=== PATIENT | female | born 1955 ===

== ENCOUNTER 2018-12-01 08:44 | Observation (INO) | payer MEDICAID ==
[2018-12-01 08:44] VITALS: BMI 28.9
[2018-12-01] MEDS ORDERED: Sodium Chloride 0.9% 1,000 ML IV STA (09:20)
--- NOTE | 2018-12-01 09:38 | ED PDOC ---
HPI: Abdomen Time Seen by Provider: 12/01/18 08:59 Chief Complaint (Nursing): GI Problem Chief Complaint (Provider): GI Problem History Per: Patient History/Exam Limitations: no limitations Onset/Duration Of Symptoms: Days (x1) Current Symptoms Are (Timing): Still Present Location Of Pain/Discomfort: Epigastric Associated Symptoms: Nausea, Vomiting, Diarrhea Additional Complaint(s): Mony Hawley is a 63 year old female with a past medical history of HIV, diabetes, asthma, anemia, and lymphoma who is presenting to the ED for evaluation of acute onset vomiting and diarrhea onset last night. Patient states that she is otherwise well but also complains of epigastric discomfort associated with the multiple episodes of vomiting and diarrhea. She admits that she is unsure of who she was in contact with or any particular food she ate recently that could have caused this. Patient admits that she was recently discharge from [facility] for treatment of pneumonia and states that she has felt warm but doesnt think she has a fever. PMD: Solange Gonzalez Past Medical History Reviewed: Historical Data, Nursing Documentation, Vital Signs Vital Signs: Last Vital Signs Temp 97.6 F 12/01/18 08:51 Pulse 111 H 12/01/18 08:51 Resp 16 12/01/18 08:51 BP 83/50 L 12/01/18 08:51 Pulse Ox 97 12/01/18 08:51 - Medical History PMH: Anemia, Anxiety, Asthma, COPD (Emphysema,), Depression, Diabetes, Emphysema, Gall Bladder Disease, HIV, Hypercholesterolemia, Kidney Stones (40 YRS AGO), Pneumonia (DECEMBER 2013 INTUBATED) Denies: Chronic Kidney Disease - Surgical History Surgical History: Cholecystectomy, Endoscopy Other surgeries: Tubal Ligation - Family History Family History: States: Unknown Family Hx - Social History Current smoker - smoking cessation education provided: No Alcohol: None Drugs: Denies - Immunization History Hx Tetanus Toxoid Vaccination: Yes Hx Influenza Vaccination: Yes Hx Pneumococcal Vaccination: Yes - Home Medications Home Medications: Ambulatory Orders Medication Instructions Recorded Atorvastatin Calcium 20 mg PO DAILY 01/10/18 Aspirin [Aspirin Chewable] 81 mg PO DAILY chew 01/14/18 Darunavir [Prezista] 800 mg PO HS tab 01/14/18 Gabapentin [Neurontin] 800 mg PO TID tab 01/14/18 GlipiZIDE [Glucotrol] 5 mg PO BID tab 01/14/18 Lisinopril [Zestril] 5 mg PO DAILY tab 01/14/18 Ritonavir [Norvir] 100 mg PO HS cap 01/14/18 Tenofovir [Viread] 300 mg PO HS tab 01/14/18 Albuterol HFA [Ventolin HFA 90 2 puff IH PRN PRN 07/08/18 mcg/actuation (8 g)] Alogliptin Benzoate [Nesina] 25 mg PO DAILY 07/08/18 MetFORMIN [glucoPHAGE] 1,000 mg PO BID 07/08/18 Pantoprazole [Protonix EC Tab] 40 mg PO DAILY 07/08/18 Alogliptin Benzoate [Alogliptin] 25 mg PO DAILY 09/13/18 Anderson-3 Fatty Acids/Fish Oil [Fish 1,000 mg PO BID 09/13/18 Oil 1,000 mg Capsule] Sertraline HCl 50 mg PO DAILY 09/13/18 Tivicay 50 mg PO DAILY 09/13/18 Trazodone HCl 150 mg PO HS 09/13/18 Darunavir [Prezista] 800 mg PO DAILY 10/02/18 Pentoxifylline 400 mg PO TID 10/02/18 Sertraline HCl 50 mg PO DAILY 10/02/18 Azithromycin [Zithromax] 250 mg PO DAILY #6 tab 11/15/18 Benzonatate 200 mg PO TID PRN #30 capsule 11/15/18 predniSONE [Prednisone] 20 mg PO BID #10 tab 11/15/18 - Allergies Allergies/Adverse Reactions: Allergies Allergy/AdvReac Type Severity Reaction Status Date / Time No Known Allergies Allergy Verified 11/15/18 22:47 Review of Systems ROS Statement: Except As Marked, All Systems Reviewed And Found Negative Constitutional: Negative for: Fever, Chills Gastrointestinal: Positive for: Vomiting, Abdominal Pain, Diarrhea Genitourinary Female: Negative for: Hematuria Musculoskeletal: Negative for: Back Pain Physical Exam - Reviewed Nursing Documentation Reviewed: Yes Vital Signs Reviewed: Yes - Physical Exam Appears: Positive for: Non-toxic, In Acute Distress (mild to moderate discomfort ) Head Exam: Positive for: ATRAUMATIC, NORMAL INSPECTION, NORMOCEPHALIC Skin: Positive for: Warm, Pallor Eye Exam: Negative for: Scleral icterus ENT: Positive for: Other (dry mucosa ) Cardiovascular/Chest: Positive for: Regular Rate, Rhythm. Negative for: Murmur Respiratory: Positive for: Normal Breath Sounds. Negative for: Respiratory Distress Gastrointestinal/Abdominal: Positive for: Soft, Tenderness (epigastric ), Distended Back: Positive for: Normal Inspection Extremity: Positive for: Normal ROM. Negative for: Deformity, Swelling Neurologic/Psych: Positive for: Alert, Oriented. Negative for: Motor/Sensory Deficits - Laboratory Results Result Diagrams: 12/01/18 09:44 12/01/18 09:44 - ECG O2 Sat by Pulse Oximetry: 97 (RA) Pulse Ox Interpretation: Normal Medical Decision Making Medical Decision Making: Time: 9:20 Impression: acute gastroenteritis possible cause viral vs food poisoning vs CDIFF Plan: --CMP --Lipase --ED Urine Dipstick --CBC --X-ray obstructive series --IV Fluids --Pepcid 20 mg IVP --Zofran 4 mg IVP --C DIFF Toxin A B Scribe Attestation: Documented by My Mendez, acting as a scribe for Tiff Hanley MD. Provider Scribe Attestation: All medical record entries made by the Scribe were at my direction and personall y dictated by me. I have reviewed the chart and agree that the record accurately reflects my personal performance of the history, physical exam, medical decision making, and the department course for this patient. I have also personally directed, reviewed, and agree with the discharge instructions and disposition. Disposition - Clinical Impression Clinical Impression: Diarrhea, Ileus - Patient ED Disposition Is Patient to be Admitted: Yes Doctor Will See Patient In The: Hospital - Disposition Disposition: Transfer of Care Disposition Time: 14:46 Condition: FAIR Forms: [employer] (Icelandic) - Pt Status Changed To: Hospital Disposition Of: Inpatient - Admit Certification Admit to Inpatient:: After my assessment, the patient will require hospitalization for at least two midnights. This is because of the severity of symptoms shown, intensity of services needed, and/or the medical risk in this patient being treated as an outpatient. - POA Present On Arrival: None
[2018-12-01 10:02] LABS: BASO % 0.1 % (0.0-2.0); EOS # 0.1 K/uL (0.0-0.7); EOS % 0.6 % (0.0-4.0); HEMOGLOBIN 10.3 g/dL (12.0-16.0); LYMPH # 0.6 K/uL (1.0-4.3); LYMPH % 4.2 % (20.0-40.0); MEAN CELL VOLUME 88.2 fl (81.0-99.0); MEAN CORPUSCULAR HEMOGLOBIN 29.3 pg (27.0-31.0); MEAN CORPUSCULAR HGB CONC 33.2 g/dL (33.0-37.0); MONO # 0.5 K/uL (0.0-0.8); MONO % 3.6 % (0.0-10.0); NEUT # 13.7 K/uL (1.8-7.0); NEUT % 91.5 % (50.0-75.0); PLATELET COUNT 309 K/uL (130-400); RBC 3.52 Mil/uL (3.80-5.20); RED CELL DISTRIBUTION WIDTH 14.8 % (11.5-14.5)
[2018-12-01 10:17] LABS: ALB/GLOB RATIO 1.2 (1.0-2.1); ALBUMIN 3.6 g/dL (3.5-5.0); ALT/SGPT 29 U/L (9-52); AST/SGOT 16 U/L (14-36); BLOOD UREA NITROGEN 36 mg/dl (7-17); CALCIUM 8.9 mg/dL (8.4-10.2); GFR NON-AFRICAN AMERICAN 50; LIPASE 46 U/L (23-300)
--- NOTE | 2018-12-01 10:37 | RAD ---
Date of service: 12/01/2018 PROCEDURE: Radiographs of the chest and abdomen (obstructive series) HISTORY: vomiting, diarrhea, abd distention COMPARISON: No prior. TECHNIQUE: AP radiograph of the chest, with upright and supine radiographs of the abdomen. FINDINGS: CHEST: Lungs: Clear. Cardiovascular: Normal size heart. No pulmonary vascular congestion. No aortic atherosclerotic calcification present Pleura: No pleural fluid. No pneumothorax. Other findings: None. ABDOMEN AND PELVIS: Bowel: Minimal stool in the left colon noted. A few nonspecific this mostly small bowel air-fluid levels are present no dilated small or large bowel loops appreciated.. No evidence of mechanical obstruction. Free air: None. Bones: Mild lumbar spondylosis. Bilateral hip arthrosis. Other findings: Right upper quadrant cholecystectomy clips. Inferior bilateral hemipelvic phleboliths. Partially visualized left groin vascular stent. IMPRESSION: No pulmonary infiltrate. No mechanical bowel obstruction. Nonspecific bowel gas pattern as above. No free air. Other findings as above.
[2018-12-01 12:29] LABS: ANISOCYTOSIS SLIGHT; BANDS 2 % (0-2); BASOPHIL 1 % (0-2); EOSINOPHIL 1 % (0-7); HYPOCHROMIC SLIGHT; LYMPHOCYTE 3 % (20-50); MONOCYTE 2 % (0-10); NEUTROPHIL 91 % (42-75); PLATELET CLUMPS PRESENT; PLATELET ESTIMATE NORMAL (NORMAL); TOTAL CELLS COUNTED 100
[2018-12-01] MEDS ORDERED: Iohexol 240 (50 ml) PO ONE (15:44)
[2018-12-01] MEDS ORDERED: Dextrose 50% SYRINGE Inj (50 ml) IV PRN (15:45)
[2018-12-01] MEDS ORDERED: Glucagon Recombinant 1 mg Inj IM PRN (15:45)
[2018-12-01] MEDS ORDERED: Albuterol HFA 90 mcg/actuation (8 g) IH PRN (15:47)
[2018-12-01] MEDS ORDERED: Albuterol 0.083% Inhal Sol (2.5 mg/3 mL) UD IH PRN (15:47)
[2018-12-01] MEDS ORDERED: Iohexol 240 (50 ml) ONE (15:57)
[2018-12-01] MEDS: Sodium Chloride 0.9% 1,000 ML IV SCH (16:04)
--- NOTE | 2018-12-01 16:11 | CP.PCM.HP ---
History of Present Illness - History of Present Illness History of Present Illness: 63 y/o female w/ pmhx of HIV+, DM2, and Hodgkins lymphoma c/o constant epigastric pain, 7/10 in severity, associated w/ multiple episodes of non-bloody diarrhea, which started last night. Patient reports feeling weak and dizzy after episodes of diarrhea. Denies aggravating or alleviating factors. Last bowel movement was 7AM today. She reports eating reheated rice, eggs, and yellow plantains before the onset of her symptoms. Denies fevers, chills, headache, chest pain, SOB, vomiting, urinary symptoms. Of note, she was recently hosp italized and treated for pneumonia. ED Course: Vitals: T97.6, HR 111, BP 83/50, RR16, SpO2 97% on room air Labs: WBC 15.0, Na+ 131, K+ 5.1. C.diff ag/toxin negative Meds: Pepcid 20mg IV, Zofran 4mg IV, NaCl- 1L boulus IV Imaging: Abd XR: no mechanical bowel obstruction, small bowel air-fluid levels appreciated PMD: Dr. Solange Gonzalez Pmhx: HIV+, DM2, Hodgkin's Lymphoma (diagnosed 3 years ago, treated), Asthma, polyneuropathy Socialhx: former smoker of 1.5ppd x 37 years, quit 10 years ago. Former Cocain user. Denies Etoh use. Single, has 4 kids. Famhx: Mother had throat cancer, DM, asthma SurgHx: cholecystectomy, left extremity angiogram and revascularization 2018, bl adder surgery, tubal ligation, stent placement x3 in 2018 Allergies: NKDA Code Status: Full Code Next of Kin: Daughter, Klarissa Small, Present on Admission - Present on Admission Any Indicators Present on Admission: No History of DVT/PE: No History of Uncontrolled Diabetes: No Urinary Catheter: No Decubitus Ulcer Present: No Review of Systems - Review of Systems All systems: reviewed and no additional remarkable complaints except - Constitutional Constitutional: absent: Chills, Fever - Gastrointestinal Gastrointestinal: Abdominal Pain, Bloating, Diarrhea, Nausea - Genitourinary Genitourinary: absent: Difficulty Urinating Past Patient History - Infectious Disease Hx of Infectious Diseases: None - Past Medical History & Family History Past Medical History?: Yes - Past Social History Smoking Status: Former Smoker Alcohol: None Drugs: Denies Home Situation {Lives}: With Family - CARDIAC Hx Hypercholesterolemia: Yes - PULMONARY Hx Asthma: Yes Hx Chronic Obstructive Pulmonary Disease (COPD): Yes (Emphysema,) Hx Emphysema: Yes Hx Pneumonia: Yes (DECEMBER 2013 INTUBATED) - NEUROLOGICAL Hx Neurological Disorder: No - HEENT Hx HEENT Problems: Yes Hx Cataracts: Yes - RENAL Hx Chronic Kidney Disease: No Hx Kidney Stones: Yes (40 YRS AGO) - ENDOCRINE/METABOLIC Hx Endocrine Disorders: Yes Hx Diabetes Mellitus Type 2: Yes - HEMATOLOGICAL/ONCOLOGICAL Hx Anemia: Yes Hx Human Immunodeficiency Virus (HIV): Yes - INTEGUMENTARY Hx Cellulitis: Yes - MUSCULOSKELETAL/RHEUMATOLOGICAL Hx Musculoskeletal Disorders: Yes Hx Falls: Yes - GASTROINTESTINAL Hx Gall Bladder Disease: Yes - GENITOURINARY/GYNECOLOGICAL Hx Genitourinary Disorders: Yes Other/Comment: BLADDER LIFT AND SURGERY prolapsed again - PSYCHIATRIC Hx Anxiety: Yes Hx Depression: Yes - SURGICAL HISTORY Hx Cholecystectomy: Yes - ANESTHESIA Hx Anesthesia: Yes Hx Anesthesia Reactions: No Hx Malignant Hyperthermia: No Meds Allergies/Adverse Reactions: Allergies Allergy/AdvReac Type Severity Reaction Status Date / Time No Known Allergies Allergy Verified 11/15/18 22:47 Physical Exam - Constitutional Appears: In Acute Distress - Head Exam Head Exam: ATRAUMATIC, NORMAL INSPECTION - Eye Exam Eye Exam: Normal appearance - ENT Exam ENT Exam: Mucous Membranes Dry - Respiratory Exam Respiratory Exam: Clear to Auscultation Bilateral, NORMAL BREATHING PATTERN - Cardiovascular Exam Cardiovascular Exam: REGULAR RHYTHM, +S1, +S2 - GI/Abdominal Exam GI & Abdominal Exam: Distended, Hypoactive Bowel Sounds, Soft, Tenderness - Extremities Exam Extremities exam: Positive for: normal inspection. Negative for: calf tenderness, pedal edema, tenderness - Back Exam Back exam: NORMAL INSPECTION. absent: CVA tenderness (L), CVA tenderness (R) - Neurological Exam Neurological exam: Alert - Skin Skin Exam: Dry, Intact, Warm Results - Vital Signs Recent Vital Signs: Last Vital Signs Temp 99.5 F 12/01/18 14:59 Pulse 110 H 12/01/18 14:59 Resp 16 12/01/18 14:59 BP 114/53 L 12/01/18 14:59 Pulse Ox 98 12/01/18 14:59 - Labs Result Diagrams: 12/01/18 09:44 12/01/18 09:44 Labs: Laboratory Results - last 24 hr 12/01/18 12/01/18 12/01/18 09:14 09:44 09:44 WBC 15.0 H RBC 3.52 L Hgb 10.3 L Hct 31.1 L MCV 88.2 MCH 29.3 MCHC 33.2 RDW 14.8 H Plt Count 309 MPV 8.0 Neut % (Auto) 91.5 H Lymph % (Auto) 4.2 L [place] % (Auto) 3.6 Eos % (Auto) 0.6 Baso % (Auto) 0.1 Neut # (Auto) 13.7 H Lymph # (Auto) 0.6 L [place] # (Auto) 0.5 Eos # (Auto) 0.1 Baso # (Auto) 0.0 Neutrophils % (Manual) 91 H Band Neutrophils % 2 Lymphocytes % (Manual) 3 L Monocytes % (Manual) 2 Eosinophils % (Manual) 1 Basophils % (Manual) 1 Platelet Estimate Normal Plt Clumps, EDTA Present Hypochromasia (manual) Slight Anisocytosis (manual) Slight Sodium 131 L Potassium 5.1 H Chloride 97 L Carbon Dioxide 19 L Anion Gap 20 BUN 36 H Creatinine 1.1 Est GFR ( Amer) > 60 Est GFR (Non-Af Amer) 50 POC Glucose (mg/dL) 348 H Random Glucose 354 H Calcium 8.9 Total Bilirubin 0.3 AST 16 ALT 29 Alkaline Phosphatase 89 Total Protein 6.7 Albumin 3.6 Globulin 3.1 Albumin/Globulin Ratio 1.2 Lipase 46 C. difficile Ag & Toxin 12/01/18 12/01/18 14:00 14:11 WBC RBC Hgb Hct MCV MCH MCHC RDW Plt Count MPV Neut % (Auto) Lymph % (Auto) [place] % (Auto) Eos % (Auto) Baso % (Auto) Neut # (Auto) Lymph # (Auto) [place] # (Auto) Eos # (Auto) Baso # (Auto) Neutrophils % (Manual) Band Neutrophils % Lymphocytes % (Manual) Monocytes % (Manual) Eosinophils % (Manual) Basophils % (Manual) Platelet Estimate Plt Clumps, EDTA Hypochromasia (manual) Anisocytosis (manual) Sodium Potassium Chloride Carbon Dioxide Anion Gap BUN Creatinine Est GFR ( Amer) Est GFR (Non-Af Amer) POC Glucose (mg/dL) 245 H Random Glucose Calcium Total Bilirubin AST ALT Alkaline Phosphatase Total Protein Albumin Globulin Albumin/Globulin Ratio Lipase C. difficile Ag & Toxin Negative Assessment & Plan - Assessment and Plan (Free Text) Assessment: 63 y/o female w/ pmhx of HIV+, DM2, and Hodgkin's lymphoma admitted for observation for diarrhea and abdominal pain. Diarrhea/Abd Pain Likely secondary to food poisoning vs. viral etiology WBC 15.0 C.diff ag/toxin negative Given Pepcid 20mg IV, Zofran 4mg IV, NaCl- 1L bolus IV x 1 in ER Abd XR: no mechanical bowel obstruction, small bowel air-fluid levels appreciated Abd CT w/ PO and IV contrast ordered Zofran 4mg IVP Q6 PRN Protonix 40mg IVP QD Toradol 15mg IVP Q6 for moderate pain, Toradol 30mg IVP Q6 for severe pain IV fluid hydration NaCl- 0.9% @ 100mL/hr CBC in the AM Stool culture ordered Hx of HIV Chronic. Stable. Cont. home meds Prezista 800mg PO QD, Tivicay 50mg PO QD, Norvir 100mg PO QD, Viread 300mg PO QD 08/04/2018 CD4 683, Viral load <20 Hx of DM Chronic. Uncontrolled. Hold metformin Coverage scale in place Hx of Peripheral neuropathy Chronic. Stable. Neurontin 400mg PO Q8 Hx of Hypertriglyceridemia Lipitor 20mg PO Hx of Asthma Cont. home meds Albuterol Neb 2.5mg/3mL inh q6h prn Ventolin 2 puffs inh q6h prn Diet NPO DVT prophylaxis Lovenox 40mg SC SCDs Code Status Full Code - Date & Time Date: 12/01/18 Time: 15:45 Decision To Admit - Pt Status Changed To: Hospital Disposition Of: Observation - . Bed Request Type: Med/Surg Admitting Physician: Marisol Yu
[2018-12-01] MEDS ORDERED: Iodixanol 320 MG/ML 100 ML BOTTLE IV ONE (17:02)
[2018-12-01] MEDS ORDERED: Sodium Chloride 0.9% 50 ML IV ONE (17:02)
--- NOTE | 2018-12-01 18:41 | CT ---
Date of service: 12/01/2018 PROCEDURE: CT Abdomen and Pelvis with contrast HISTORY: abd pain COMPARISON: 01/01/2018 TECHNIQUE: Contrast dose: 90 mL Visipaque 320 Radiation dose: Total exam DLP = 466.83 mGy-cm. This CT exam was performed using one or more of the following dose reduction techniques: Automated exposure control, adjustment of the mA and/or kV according to patient size, and/or use of iterative reconstruction technique. FINDINGS: LOWER THORAX: Minimal linear pleural-based scar in both lower lobes. No infiltrate/effusion. LIVER: Mild hepatomegaly. Smooth contour. No mass. No biliary ductal dilatation. GALLBLADDER AND BILE DUCTS: Status post cholecystectomy PANCREAS: Unremarkable. No gross lesion or ductal dilatation. SPLEEN: Unremarkable. ADRENALS: Unremarkable. No mass. KIDNEYS AND URETERS: Unremarkable. No hydronephrosis. No solid mass. VASCULATURE: No evidence of abdominal aortic aneurysm. The most cephalic aspect of a vascular stent is seen in the left common femoral artery. There is atherosclerotic calcification of the abdominal aorta. BOWEL: Unremarkable. No obstruction. No gross mural thickening. APPENDIX: Normal appendix. PERITONEUM: Unremarkable. No free fluid. No free air. LYMPH NODES: Unremarkable. No enlarged lymph nodes. BLADDER: Suboptimal bladder distention. No gross abnormality. REPRODUCTIVE: Normal uterus. BONES: No acute fracture. OTHER FINDINGS: None. IMPRESSION: No acute abnormality. Mild hepatomegaly. Status post cholecystectomy. Vascular stent in left common femoral artery.
[2018-12-01] MEDS ORDERED: Patient's Own Med (Trazodone Hcl [Trazodone Hcl] 150 MG) PO SCH (22:00)
[2018-12-01] MEDS: Insulin Lispro (humaLOG) 100 Units/ml Inj SC SCH (22:08)
[2018-12-02] MEDS: Sodium Chloride 0.9% 1,000 ML IV SCH (01:45)
[2018-12-02 05:05] VITALS: RESP 18
[2018-12-02 05:22] LABS: HEMOGLOBIN 8.7 g/dL (12.0-16.0); MEAN CELL VOLUME 89.9 fl (81.0-99.0); MEAN CORPUSCULAR HEMOGLOBIN 30.1 pg (27.0-31.0); MEAN CORPUSCULAR HGB CONC 33.4 g/dL (33.0-37.0); RBC 2.88 Mil/uL (3.80-5.20); WHITE BLOOD COUNT 5.8 K/uL (4.8-10.8)
[2018-12-02 05:51] LABS: BLOOD UREA NITROGEN 20 mg/dl (7-17); CALCIUM 8.6 mg/dL (8.4-10.2); GFR NON-AFRICAN AMERICAN > 60
[2018-12-02] MEDS: Insulin Lispro (humaLOG) 100 Units/ml Inj SC SCH ×2 (06:30→12:15)
[2018-12-02] MEDS ORDERED: ALOGLIPTIN BENZOATE 25 MG PO SCH (09:00)
[2018-12-02] MEDS ORDERED: Enoxaparin 40 mg Syringe SC SCH ×2 (09:00)
[2018-12-02] MEDS ORDERED: RITONAVIR 100 MG PO SCH (09:00)
--- NOTE | 2018-12-02 09:48 | CP.PCM.DIS ---
<Shanna Jordan - Last Filed: 12/02/18 10:13> Provider - Provider Date of Admission: 12/01/18 14:45 Attending physician: Marisol Yu MD Consults: 12/01/18 21:38 Case Management Referral Routine Comment: Physician Instructions: Reason For Exam: per protocol Reason for Referral: Discharge Planning Time Spent in preparation of Discharge (in minutes): 35 Diagnosis - Discharge Diagnosis (1) Diarrhea Status: Resolved Priority: Low (2) Ileus Status: Resolved Priority: Low Hospital Course - Lab Results Lab Results: Most Recent Lab Values WBC 5.8 K/uL (4.8-10.8) D 12/02/18 04:25 RBC 2.88 Mil/uL (3.80-5.20) L 12/02/18 04:25 Hgb 8.7 g/dL (12.0-16.0) L 12/02/18 04:25 Hct 25.9 % (34.0-47.0) L 12/02/18 04:25 MCV 89.9 fl (81.0-99.0) 12/02/18 04:25 MCH 30.1 pg (27.0-31.0) 12/02/18 04:25 MCHC 33.4 g/dL (33.0-37.0) 12/02/18 04:25 RDW 15.0 % (11.5-14.5) H 12/02/18 04:25 Plt Count 251 K/uL (130-400) 12/02/18 04:25 MPV 8.0 fl (7.2-11.7) 12/01/18 09:44 Neut % (Auto) 91.5 % (50.0-75.0) H 12/01/18 09:44 Lymph % (Auto) 4.2 % (20.0-40.0) L 12/01/18 09:44 [place] % (Auto) 3.6 % (0.0-10.0) 12/01/18 09:44 Eos % (Auto) 0.6 % (0.0-4.0) 12/01/18 09:44 Baso % (Auto) 0.1 % (0.0-2.0) 12/01/18 09:44 Neut # (Auto) 13.7 K/uL (1.8-7.0) H 12/01/18 09:44 Lymph # (Auto) 0.6 K/uL (1.0-4.3) L 12/01/18 09:44 [place] # (Auto) 0.5 K/uL (0.0-0.8) 12/01/18 09:44 Eos # (Auto) 0.1 K/uL (0.0-0.7) 12/01/18 09:44 Baso # (Auto) 0.0 K/uL (0.0-0.2) 12/01/18 09:44 Neutrophils % (Manual) 91 % (42-75) H 12/01/18 09:44 Band Neutrophils % 2 % (0-2) 12/01/18 09:44 Lymphocytes % (Manual) 3 % (20-50) L 12/01/18 09:44 Monocytes % (Manual) 2 % (0-10) 12/01/18 09:44 Eosinophils % (Manual) 1 % (0-7) 12/01/18 09:44 Basophils % (Manual) 1 % (0-2) 12/01/18 09:44 Platelet Estimate Normal (NORMAL) 12/01/18 09:44 Plt Clumps, EDTA Present 12/01/18 09:44 Hypochromasia (manual) Slight 12/01/18 09:44 Anisocytosis (manual) Slight 12/01/18 09:44 Sodium 136 mmol/l (132-148) 12/02/18 04:25 Potassium 3.9 MMOL/L (3.6-5.0) 12/02/18 04:25 Chloride 106 mmol/L (98-107) 12/02/18 04:25 Carbon Dioxide 21 mmol/L (22-30) L 12/02/18 04:25 Anion Gap 13 (10-20) 12/02/18 04:25 BUN 20 mg/dl (7-17) H 12/02/18 04:25 Creatinine 0.8 mg/dl (0.7-1.2) 12/02/18 04:25 Est GFR ( Amer) > 60 12/02/18 04:25 Est GFR (Non-Af Amer) > 60 12/02/18 04:25 POC Glucose (mg/dL) 164 mg/dL (65-110) H 12/02/18 05:15 Random Glucose 137 mg/dL (65-105) H 12/02/18 04:25 Lactic Acid 1.8 mmol/L (0.7-2.1) 12/01/18 17:11 Calcium 8.6 mg/dL (8.4-10.2) 12/02/18 04:25 Total Bilirubin 0.3 mg/dl (0.2-1.3) 12/01/18 09:44 AST 16 U/L (14-36) 12/01/18 09:44 ALT 29 U/L (9-52) 12/01/18 09:44 Alkaline Phosphatase 89 U/L (38-126) 12/01/18 09:44 Total Protein 6.7 G/DL (6.3-8.2) 12/01/18 09:44 Albumin 3.6 g/dL (3.5-5.0) 12/01/18 09:44 Globulin 3.1 gm/dL (2.2-3.9) 12/01/18 09:44 Albumin/Globulin Ratio 1.2 (1.0-2.1) 12/01/18 09:44 Lipase 46 U/L (23-300) 12/01/18 09:44 C. difficile Ag & Toxin Negative (NEGATIVE) 12/01/18 14:00 - Hospital Course Hospital Course: 63 y/o female w/ pmhx of HIV+, DM2, and Hodgkins lymphoma c/o constant epigastric pain, 7/10 in severity, associated w/ multiple episodes of non-bloody diarrhea after eating reheated rice and eggs. C.diff ag/toxin negative. Imaging: Abd XR: no mechanical bowel obstruction, small bowel air-fluid levels appreciated. CT abdomen and pelvis with contrast showed :No acute abnormality. Mild hepatomegaly. Status post cholecystectomy. Vascular stent in left common femoral artery. Patient given Pepcid 20mg IV, Zofran 4mg IV, NaCl- 1L boulus IV in ER, then placed under observation in telemetry, given Bentyl 20 mg IM x 1 dose, Zofran 4mg IVP Q6 PRN, and Protonix 40mg IVP QD. Diet was advanced, patient tolerated and was stable for discharge to home w/ instructions to follow up w/ pmd within 1 week, and cont home meds. Of note, patient was admitted at [facility] 11/16/18 for Chest pain and SOB; diagnosed with COPD exacerbation, placed on Bipap, had elevated troponins, NSTEMI ,and was transferred to ICU for monitoring. She was given Zosyn IV empirically for CAP/Acute bronchitis. CTA chest showed no infiltrates no PE. Her Echo showed normal EF During her stay at [facility] she was evaluated by GI team for abdominal pain, discomfort, abdominal distention, constipation. She had abdominal series to rule out obstruction and was given lactulose, Fleet enema, dulcolax. Home meds: Albuterol Neb Q6 PRN Ventolin IH Q6 PRN Alogliptin 25mg PO QD Asprin 81 mg PO QD Atorvastatin 20mg PO QPM Darunavir 800 mg PO QD Tivicay 50mg PO QD Gabapentin 400mg PO Q8 Metformin 1000mg PO BID Protonix 40 mg PO QD Norvir 100mg PO QD Sertraline 50mg PO QD Viread 300mg PO QD Trazodone 150mg pO HS Glipizide 5mg PO BID Lisinopril 5mg PO QD Discharge Exam - ENT Exam ENT Exam: Mucous Membranes Moist - Respiratory Exam Respiratory Exam: Clear to PA & Lateral, NORMAL BREATHING PATTERN - Cardiovascular Exam Cardiovascular Exam: REGULAR RHYTHM, +S1, +S2 - GI/Abdominal Exam GI & Abdominal Exam: Normal Bowel Sounds. absent: Distended, Rebound, Rigid - Neurological Exam Neurological exam: Alert - Psychiatric Exam Psychiatric exam: Normal Affect, Normal Mood - Skin Skin Exam: Dry, Intact, Normal Color Discharge Plan - Discharge Medications Prescriptions: Benzonatate [Tessalon Perle] 100 mg PO BID 7 Days #14 capsule - Follow Up Plan Condition: FAIR Disposition: HOME/ ROUTINE Instructions: Diarrhea in Adolescents and Adults Additional Instructions: follow up with in 1 week Referrals: Solange Gonzalez MD [Provisional Staff] - <Pari Todd - Last Filed: 12/02/18 15:41> Provider - Provider Date of Admission: 12/01/18 14:45 Attending physician: Marisol Yu MD Consults: 12/01/18 21:38 Case Management Referral Routine Comment: Physician Instructions: Reason For Exam: per protocol Reason for Referral: Discharge Planning Hospital Course - Lab Results Lab Results: Most Recent Lab Values WBC 5.8 K/uL (4.8-10.8) D 12/02/18 04:25 RBC 2.88 Mil/uL (3.80-5.20) L 12/02/18 04:25 Hgb 8.7 g/dL (12.0-16.0) L 12/02/18 04:25 Hct 25.9 % (34.0-47.0) L 12/02/18 04:25 MCV 89.9 fl (81.0-99.0) 12/02/18 04:25 MCH 30.1 pg (27.0-31.0) 12/02/18 04:25 MCHC 33.4 g/dL (33.0-37.0) 12/02/18 04:25 RDW 15.0 % (11.5-14.5) H 12/02/18 04:25 Plt Count 251 K/uL (130-400) 12/02/18 04:25 MPV 8.0 fl (7.2-11.7) 12/01/18 09:44 Neut % (Auto) 91.5 % (50.0-75.0) H 12/01/18 09:44 Lymph % (Auto) 4.2 % (20.0-40.0) L 12/01/18 09:44 [place] % (Auto) 3.6 % (0.0-10.0) 12/01/18 09:44 Eos % (Auto) 0.6 % (0.0-4.0) 12/01/18 09:44 Baso % (Auto) 0.1 % (0.0-2.0) 12/01/18 09:44 Neut # (Auto) 13.7 K/uL (1.8-7.0) H 12/01/18 09:44 Lymph # (Auto) 0.6 K/uL (1.0-4.3) L 12/01/18 09:44 [place] # (Auto) 0.5 K/uL (0.0-0.8) 12/01/18 09:44 Eos # (Auto) 0.1 K/uL (0.0-0.7) 12/01/18 09:44 Baso # (Auto) 0.0 K/uL (0.0-0.2) 12/01/18 09:44 Neutrophils % (Manual) 91 % (42-75) H 12/01/18 09:44 Band Neutrophils % 2 % (0-2) 12/01/18 09:44 Lymphocytes % (Manual) 3 % (20-50) L 12/01/18 09:44 Monocytes % (Manual) 2 % (0-10) 12/01/18 09:44 Eosinophils % (Manual) 1 % (0-7) 12/01/18 09:44 Basophils % (Manual) 1 % (0-2) 12/01/18 09:44 Platelet Estimate Normal (NORMAL) 12/01/18 09:44 Plt Clumps, EDTA Present 12/01/18 09:44 Hypochromasia (manual) Slight 12/01/18 09:44 Anisocytosis (manual) Slight 12/01/18 09:44 Sodium 136 mmol/l (132-148) 12/02/18 04:25 Potassium 3.9 MMOL/L (3.6-5.0) 12/02/18 04:25 Chloride 106 mmol/L (98-107) 12/02/18 04:25 Carbon Dioxide 21 mmol/L (22-30) L 12/02/18 04:25 Anion Gap 13 (10-20) 12/02/18 04:25 BUN 20 mg/dl (7-17) H 12/02/18 04:25 Creatinine 0.8 mg/dl (0.7-1.2) 12/02/18 04:25 Est GFR ( Amer) > 60 12/02/18 04:25 Est GFR (Non-Af Amer) > 60 12/02/18 04:25 POC Glucose (mg/dL) 266 mg/dL (65-110) H 12/02/18 10:58 Random Glucose 137 mg/dL (65-105) H 12/02/18 04:25 Lactic Acid 1.8 mmol/L (0.7-2.1) 12/01/18 17:11 Calcium 8.6 mg/dL (8.4-10.2) 12/02/18 04:25 Total Bilirubin 0.3 mg/dl (0.2-1.3) 12/01/18 09:44 AST 16 U/L (14-36) 12/01/18 09:44 ALT 29 U/L (9-52) 12/01/18 09:44 Alkaline Phosphatase 89 U/L (38-126) 12/01/18 09:44 Total Protein 6.7 G/DL (6.3-8.2) 12/01/18 09:44 Albumin 3.6 g/dL (3.5-5.0) 12/01/18 09:44 Globulin 3.1 gm/dL (2.2-3.9) 12/01/18 09:44 Albumin/Globulin Ratio 1.2 (1.0-2.1) 12/01/18 09:44 Lipase 46 U/L (23-300) 12/01/18 09:44 C. difficile Ag & Toxin Negative (NEGATIVE) 12/01/18 14:00 Attending/Attestation - Attestation I have personally seen and examined this patient.: Yes I have fully participated in the care of the patient.: Yes I have reviewed all pertinent clinical information, including history, physical exam and plan: Yes Notes (Text): Diarrhea prob viral Gastroenteritis, resolved - pt's diarrhea resolved without abx , she was unable to give specimen for Stool work up except a small amount in the ED for C diff w/c was negative - afebrile, leukocytosis resolved with IVF hydration - tolerated PO diet -Ct of the Abdomen : No acute abnormality. Mild hepatomegaly. Status post cholecystectomy. Vascular stent in left common femoral artery. - d/c pt home, return to ED if diarrhea recurs - cont Home meds - anti retrovirals Chronic Anemia - sl drop in H/H likely dilutional from IVF hydration and this is her baseline H/H from her recent [facility] [place] admission
[2018-12-02] MEDS ORDERED: Sodium Chloride 0.9% 500 ML IV ONE (10:28)
[2018-12-02 12:30] VITALS: BP 101/62; PULSE 88; TEMP 97.8; O2SAT 100
== END 2018-12-02 14:55 | disposition home or self-care (01) ==
LOC: H.ER 08:44 → H.ERHOLD 14:45 → INTOOBSV 14:45 → H.TEL 18:12
PROVIDERS: ADMIT Hospitalist; ATTEND Hospitalist
DX: R19.7 Diarrhea, unspecified (principal); E11.42 Type 2 diabetes mellitus with diabetic polyneuropathy; Z79.82 Long term (current) use of aspirin; Z79.84 Long term (current) use of oral hypoglycemic drugs; E78.00 Pure hypercholesterolemia, unspecified; F32.9 Major depressive disorder, single episode, unspecified; J43.9 Emphysema, unspecified; F41.9 Anxiety disorder, unspecified; E11.51 Type 2 diabetes mellitus with diabetic peripheral angiopathy without gangrene; Z85.71 Personal history of Hodgkin lymphoma; Z87.891 Personal history of nicotine dependence; E11.65 Type 2 diabetes mellitus with hyperglycemia; E78.1 Pure hyperglyceridemia; Z21 Asymptomatic human immunodeficiency virus [HIV] infection status; D64.9 Anemia, unspecified; R16.0 Hepatomegaly, not elsewhere classified
CPT/HCPCS: 36415; 74022; 74177; 80048; 80053; 82948; 83605; 83690; 85025; 85027; 87230; 96360; 96374; 99284; C9113; G0378; J0500; J1885; J2405; J7030; J7040; Q9966; Q9967

== ENCOUNTER 2019-01-04 17:49 | Inpatient (IN) | payer MEDICAID ==
[2019-01-04 17:49] VITALS: BMI 28.9
--- NOTE | 2019-01-04 18:43 | ED PDOC ---
Lower Extremity Pain/Injury Chief Complaint (Provider): Lower Extremity Problem History Per: Patient History/Exam Limitations: other (poor historian) Onset/Duration Of Symptoms: Days (4x) Current Symptoms Are (Timing): Still Present Severity: Moderate Additional Complaint(s): 63 year old female with a past medical history of HIV, asthma, and diabetes presents to the ED for an evaluation of bilateral lower extremity pain (L>R) worsening for the past four days, however chronic in nature. Patient claims that she was sent here by her PMD due to concern for DVT. Patient states that she may have a history of blood clots, but is unsure. Patient denies taking any medications for pain or anticoagulants. Patient describes the pain as throbbing. Patient is a poor historian. Otherwise: (-) other complaints, (-) chest pain, (- ) shortness of breath (-) recent fever. PMD: Solange Gonzalez MD <Elizabeth Morales - Last Filed: 01/04/19 23:56> <Lorelei Randolph - Last Filed: 01/06/19 10:14> Time Seen by Provider: 01/04/19 18:08 Chief Complaint (Nursing): Lower Extremity Problem/Injury Supervising Attending Note - Supervising Attending Note The Documented history was done by the: Physician Reefer Truck Driver The documented physical exam was done by the: Physician Reefer Truck Driver - Attestation: I have personally seen and examined this patient.: Yes I have fully participated in the care of the patient.: Yes I have reviewed all pertinent clinical information, including history, physical exam and plan: Yes - Notes: Notes:: Pt with new onset RIGHT lower extremity but on my exam continues to complain of LEFT leg pain. Pt hospitalized for further management. <Lorelei Randolph - Last Filed: 01/06/19 10:14> Past Medical History Reviewed: Historical Data, Nursing Documentation, Vital Signs Vital Signs: Last Vital Signs Temp 97.7 F 01/04/19 18:03 Pulse 108 H 01/04/19 18:03 Resp 16 01/04/19 18:03 BP 101/53 L 01/04/19 18:03 Pulse Ox 99 01/04/19 18:03 WERNER Report Viewed: Yes - Medical History PMH: Anemia, Anxiety, Asthma, COPD (Emphysema,), Depression, Diabetes, Emphysema, Gall Bladder Disease, HIV (levels undetectable), Hypercholesterolemia, Kidney Stones (40 YRS AGO), Pneumonia (DECEMBER 2013 INTUBATED) - Surgical History Surgical History: Cholecystectomy, Endoscopy Other surgeries: bladder prolapse repair. cyst removal. patient thinks she has a stent in her leg, is unsure why. - Family History Family History: States: Unknown Family Hx - Social History Current smoker - smoking cessation education provided: No Drugs: Denies <Elizabeth Morales - Last Filed: 01/04/19 23:56> Vital Signs: Last Vital Signs Temp 98.7 F 01/06/19 07:59 Pulse 104 H 01/06/19 07:59 Resp 20 01/06/19 07:59 BP 116/74 01/06/19 07:59 Pulse Ox 96 01/06/19 07:59 <Lorelei Randolph - Last Filed: 01/06/19 10:14> - Home Medications Home Medications: Ambulatory Orders Medication Instructions Recorded Atorvastatin Calcium 20 mg PO QPM 01/10/18 GlipiZIDE [Glucotrol] 5 mg PO BID tab 01/14/18 Albuterol HFA [Ventolin HFA 90 2 puff IH Q6 PRN 07/08/18 mcg/actuation (8 g)] MetFORMIN [glucoPHAGE] 1,000 mg PO BID 07/08/18 Pantoprazole [Protonix EC Tab] 40 mg PO DAILY 07/08/18 Alogliptin Benzoate [Alogliptin] 25 mg PO DAILY 09/13/18 Dolutegravir Sodium [Tivicay] 50 mg PO DAILY #0 09/13/18 Trazodone HCl 150 mg PO HS 09/13/18 Darunavir [Prezista] 800 mg PO DAILY 10/02/18 Sertraline HCl 50 mg PO DAILY 10/02/18 Albuterol 0.083% [Albuterol 0.083% 3 ml IH Q6 PRN 12/01/18 Inhal Jammie (2.5 mg/3 ml) UD] Aspirin [Ecotrin] 81 mg PO DAILY 12/01/18 Gabapentin [Neurontin] 400 mg PO Q8 12/01/18 Ritonavir [Norvir] 100 mg PO DAILY 12/01/18 Tenofovir [Viread] 300 mg PO DAILY 12/01/18 Cyclobenzaprine [Flexeril] 10 mg PO BID #14 tab 12/30/18 Ibuprofen [Motrin Tab] 600 mg PO TID #21 tab 12/30/18 - Allergies Allergies/Adverse Reactions: Allergies Allergy/AdvReac Type Severity Reaction Status Date / Time No Known Allergies Allergy Verified 01/04/19 18:03 Review of Systems ROS Statement: Except As Marked, All Systems Reviewed And Found Negative Cardiovascular: Negative for: Chest Pain Respiratory: Negative for: Shortness of Breath Musculoskeletal: Positive for: Leg Pain (bilateral) <CarmenJulisa K - Last Filed: 01/04/19 23:56> Physical Exam - Reviewed Nursing Documentation Reviewed: Yes Vital Signs Reviewed: Yes - Physical Exam Comments: GENERAL APPEARANCE: Patient is awake, alert, oriented x 3, in no acute distress. Limping in ED, surgical shoe in place to left lower extremity SKIN: Warm, dry; (-) cyanosis. NECK: Supple, FROm ENT: Mucus membranes moist. Airway patent, (-) stridor. LOWER EXTREMITIES: Decreased ROM secondary to pain bilaterally (+) diffuse tenderness bilaterally to lower legs/feet (+) bilateral calf tenderness with no palpable cord or swelling/erythema (-) warmth (-) pedal edema (-) evidence of cellulitis CHEST AND RESPIRATORY: (-) rales, (-) rhonchi, (-) wheezes; lungs clear, breath sounds equal bilaterally. Respirations nonlabored. HEART AND CARDIOVASCULAR: (+) tachycardia NEUROLOGIC: (+) distal sensation. <Carmen Dilip - Last Filed: 01/04/19 23:56> - Laboratory Results Result Diagrams: 01/04/19 19:10 01/04/19 19:10 - ECG O2 Sat by Pulse Oximetry: 99 (RA) Pulse Ox Interpretation: Normal <Carmen K - Last Filed: 01/04/19 23:56> - Laboratory Results Result Diagrams: 01/05/19 06:05 01/05/19 06:05 Lab Results: pO2 18 mm/Hg (30-55) L 01/04/19 19:05 VBG pH 7.33 (7.32-7.43) 01/04/19 19:05 VBG pCO2 46 mmHg (40-60) 01/04/19 19:05 VBG HCO3 22.0 mmol/L 01/04/19 19:05 VBG Total CO2 25.7 mmol/L (22-28) 01/04/19 19:05 VBG O2 Sat (Calc) 28.5 % (40-65) L 01/04/19 19:05 VBG Base Excess -1.8 mmol/L (0.0-2.0) L 01/04/19 19:05 VBG Potassium 4.3 mmol/L (3.6-5.2) 01/04/19 19:05 Sodium 134.0 mmol/L (132-148) 01/04/19 19:05 Chloride 101.0 mmol/L (98-107) 01/04/19 19:05 Glucose 117 mg/dL (65-105) H 01/04/19 19:05 Lactate 2.2 mmol/L (0.7-2.1) H 01/04/19 19:05 FiO2 21.0 % 01/04/19 19:05 PT 11.7 Seconds (9.8-13.1) 01/04/19 19:10 INR 1.0 01/04/19 19:10 APTT 36.0 Seconds (25.6-37.1) 01/04/19 19:10 Total Bilirubin 0.2 mg/dl (0.2-1.3) 01/04/19 19:10 AST 22 U/L (14-36) 01/04/19 19:10 ALT 31 U/L (9-52) 01/04/19 19:10 Alkaline Phosphatase 92 U/L (38-126) 01/04/19 19:10 Total Protein 7.5 G/DL (6.3-8.2) 01/04/19 19:10 Albumin 4.1 g/dL (3.5-5.0) 01/04/19 19:10 Globulin 3.4 gm/dL (2.2-3.9) 01/04/19 19:10 Albumin/Globulin Ratio 1.2 (1.0-2.1) 01/04/19 19:10 <Lorelei Randolph - Last Filed: 01/06/19 10:14> Medical Decision Making Medical Decision Makin Clinical impression: 63 year old female with bilateral lower extremity pain, rule out DVT. Initial plan: * US duplex lower extrm vein bilat * EKG * VBG * CMP * CBC with differnetial * PT/INR and PTT * toradol 15 mg IM * tramadol 50 mg PO * reevaluation 1839 EKG: NSR @ 90bpm (-) ST elevation, QTc 435 1935 Patient in ultrasound. 2044 U/S extremity reviewed, radiology report follows History LE pain bilaterally. Comparison None available. Technique Bilateral common femoral, superficial femoral, popliteal and posterior tibial veins were evaluated. Flow was assessed with color Doppler, compressibility, assessment of phasic flow and augmentation response. Findings Common Femoral Vein Right CFV: Unremarkable. Left CFV: Unremarkable. Superficial Femoral Vein Right SFV: Unremarkable. Left SFV: Unremarkable. Popliteal Vein Right Popliteal: Positive for partial DVT. Left Popliteal: Unremarkable. Posterior Tibial Vein Right PTV: Unremarkable. Left PTV: Unremarkable. Other Findings None. Impression There is evidence of positive partial DVT in the right popliteal vein. Electronically signed on Jan 04, 2019 8:38:10 PM EDT by: Jose Deluca M.D., [facility]DON Certified By [facility] Fellowship Trained MRI and CT Specialist In light of US findings, case discussed with family practice resident Dr Al, who will discuss case with Dr Gonzalez and review clinic records. [address] Al, patient to be admitted to med/surg observation under hospitalist Dr Mendieta. Arrangements made for admission. Patient agreeable to admission. -- ScribeAttestation: Documented byElizabeth Lennon, acting as a scribe for Elizabeth Tate Provider ScribeAttestation: All medical record entries made by the Scribe were at my direction and personally dictated by me. I have reviewed the chart and agree that the record accurately reflects my personal performance of the history, physical exam, medical decision making, and the department course for this patient. I have also personally directed, reviewed, and agree with the discharge instructions and d isposition. <CarmenElizabeth - Last Filed: 01/04/19 23:56> Disposition - Patient ED Disposition Is Patient to be Admitted: Yes Counseled Patient/Family Regarding: Studies Performed, Diagnosis - Disposition Disposition Time: 21:15 - Pt Status Changed To: Hospital Disposition Of: Observation (med/surg) - POA Present On Arrival: None <Elizabeth Morales - Last Filed: 01/04/19 23:56> <Lorelei Randolph - Last Filed: 01/06/19 10:14> - Clinical Impression Clinical Impression: Deep vein thrombosis (DVT) of popliteal vein of right lower extremity, Chronic pain of lower extremity - Disposition Condition: FAIR - PA / C D AREA SUPERVISOR / Resident Statement MD/DO has examined the patient and agrees with the treatment plan. <Lorelei Randolph - Last Filed: 01/06/19 10:14> Results - Lab Results Lab Results: 01/04/19 01/04/19 01/04/19 19:10 19:10 19:10 WBC 11.4 H D RBC 3.31 L Hgb 9.6 L Hct 28.9 L MCV 87.0 D MCH 28.8 MCHC 33.1 RDW 14.4 Plt Count 337 MPV 7.4 Neut % (Auto) 59.2 Lymph % (Auto) 30.0 [place] % (Auto) 8.0 Eos % (Auto) 2.3 Baso % (Auto) 0.5 Neut # (Auto) 6.8 Lymph # (Auto) 3.4 [place] # (Auto) 0.9 H Eos # (Auto) 0.3 Baso # (Auto) 0.1 PT 11.7 INR 1.0 APTT 36.0 pO2 VBG pH VBG pCO2 VBG HCO3 VBG Total CO2 VBG O2 Sat (Calc) VBG Base Excess VBG Potassium Sodium 136 Chloride 96 L Glucose Lactate FiO2 Potassium 4.2 Carbon Dioxide 23 Anion Gap 21 H BUN 19 H Creatinine 1.3 H Est GFR ( Amer) 50 Est GFR (Non-Af Amer) 42 Random Glucose 116 H Calcium 9.9 Total Bilirubin 0.2 AST 22 ALT 31 Alkaline Phosphatase 92 Total Protein 7.5 Albumin 4.1 Globulin 3.4 Albumin/Globulin Ratio 1.2 Venous Blood Potassium 01/04/19 19:05 WBC RBC Hgb Hct MCV MCH MCHC RDW Plt Count MPV Neut % (Auto) Lymph % (Auto) [place] % (Auto) Eos % (Auto) Baso % (Auto) Neut # (Auto) Lymph # (Auto) [place] # (Auto) Eos # (Auto) Baso # (Auto) PT INR APTT pO2 18 L VBG pH 7.33 VBG pCO2 46 VBG HCO3 22.0 VBG Total CO2 25.7 VBG O2 Sat (Calc) 28.5 L VBG Base Excess -1.8 L VBG Potassium 4.3 Sodium 134.0 Chloride 101.0 Glucose 117 H Lactate 2.2 H FiO2 21.0 Potassium Carbon Dioxide Anion Gap BUN Creatinine Est GFR ( Amer) Est GFR (Non-Af Amer) Random Glucose Calcium Total Bilirubin AST ALT Alkaline Phosphatase Total Protein Albumin Globulin Albumin/Globulin Ratio Venous Blood Potassium 4.3 <Elizabeth Morales - Last Filed: 01/04/19 23:56> - Diagnostic Imaging Results Radiology Results Extremity Ultrasound 01/04/19 18:22 IMPRESSION: Nonocclusive eccentric thrombus in the right popliteal vein. Possible chronic venous thrombus. Cannot entirely rule out acute venous thrombosis though the appearance is atypical. Otherwise unremarkable. The preliminary findings for this examination were reported by [facility] Radiology at 8:38 p.m. on 01/04/2019. There is concurrence of this report with the preliminary findings. - Lab Results Lab Results: 01/04/19 01/04/19 01/04/19 19:10 19:10 19:10 WBC 11.4 H D RBC 3.31 L Hgb 9.6 L Hct 28.9 L MCV 87.0 D MCH 28.8 MCHC 33.1 RDW 14.4 Plt Count 337 MPV 7.4 Neut % (Auto) 59.2 Lymph % (Auto) 30.0 [place] % (Auto) 8.0 Eos % (Auto) 2.3 Baso % (Auto) 0.5 Neut # (Auto) 6.8 Lymph # (Auto) 3.4 [place] # (Auto) 0.9 H Eos # (Auto) 0.3 Baso # (Auto) 0.1 PT 11.7 INR 1.0 APTT 36.0 pO2 VBG pH VBG pCO2 VBG HCO3 VBG Total CO2 VBG O2 Sat (Calc) VBG Base Excess VBG Potassium Sodium 136 Chloride 96 L Glucose Lactate FiO2 Potassium 4.2 Carbon Dioxide 23 Anion Gap 21 H BUN 19 H Creatinine 1.3 H Est GFR ( Amer) 50 Est GFR (Non-Af Amer) 42 Random Glucose 116 H Calcium 9.9 Total Bilirubin 0.2 AST 22 ALT 31 Alkaline Phosphatase 92 Total Protein 7.5 Albumin 4.1 Globulin 3.4 Albumin/Globulin Ratio 1.2 Venous Blood Potassium 01/04/19 19:05 WBC RBC Hgb Hct MCV MCH MCHC RDW Plt Count MPV Neut % (Auto) Lymph % (Auto) [place] % (Auto) Eos % (Auto) Baso % (Auto) Neut # (Auto) Lymph # (Auto) [place] # (Auto) Eos # (Auto) Baso # (Auto) PT INR APTT pO2 18 L VBG pH 7.33 VBG pCO2 46 VBG HCO3 22.0 VBG Total CO2 25.7 VBG O2 Sat (Calc) 28.5 L VBG Base Excess -1.8 L VBG Potassium 4.3 Sodium 134.0 Chloride 101.0 Glucose 117 H Lactate 2.2 H FiO2 21.0 Potassium Carbon Dioxide Anion Gap BUN Creatinine Est GFR ( Amer) Est GFR (Non-Af Amer) Random Glucose Calcium Total Bilirubin AST ALT Alkaline Phosphatase Total Protein Albumin Globulin Albumin/Globulin Ratio Venous Blood Potassium 4.3 <Lorelei Randolph - Last Filed: 01/06/19 10:14>
[2019-01-04 19:06] LABS: VENOUS BLOOD GAS BASE EXCESS -1.8 mmol/L (0.0-2.0); VENOUS BLOOD GAS PCO2 46 mmHg (40-60); VENOUS BLOOD GAS PO2 18 mm/Hg (30-55); VENOUS BLOOD PH 7.33 (7.32-7.43)
[2019-01-04 19:16] LABS: BASO # 0.1 K/uL (0.0-0.2); BASO % 0.5 % (0.0-2.0); EOS # 0.3 K/uL (0.0-0.7); EOS % 2.3 % (0.0-4.0); HEMOGLOBIN 9.6 g/dL (12.0-16.0); LYMPH # 3.4 K/uL (1.0-4.3); MEAN CORPUSCULAR HEMOGLOBIN 28.8 pg (27.0-31.0); MEAN CORPUSCULAR HGB CONC 33.1 g/dL (33.0-37.0); MEAN PLATELET VOLUME 7.4 fl (7.2-11.7); MONO # 0.9 K/uL (0.0-0.8); NEUT # 6.8 K/uL (1.8-7.0); NEUT % 59.2 % (50.0-75.0); RBC 3.31 Mil/uL (3.80-5.20); RED CELL DISTRIBUTION WIDTH 14.4 % (11.5-14.5); WHITE BLOOD COUNT 11.4 K/uL (4.8-10.8)
[2019-01-04 19:26] LABS: ALB/GLOB RATIO 1.2 (1.0-2.1); ALBUMIN 4.1 g/dL (3.5-5.0); CALCIUM 9.9 mg/dL (8.4-10.2)
[2019-01-04 19:29] LABS: PROTHROMBIN TIME 11.7 Seconds (9.8-13.1)
[2019-01-04] MEDS ORDERED: Enoxaparin 80 mg Syringe SC SCH (21:30)
[2019-01-04] MEDS ORDERED: Albuterol HFA 90 mcg/actuation (8 g) IH PRN (22:46)
--- NOTE | 2019-01-04 23:33 | CP.PCM.HP ---
History of Present Illness - History of Present Illness History of Present Illness: 63 y/o F with a PMHx of HIV, DM2, PAD, peripheral neuropathy and Hodgkins Lymphoma presented to ED due to R lower leg pain unbearable Left leg pain.Pt c/o R lower leg pain that is cramping/throbbing, constant, 8/10, began a few days ag o and progressively aggravating. US Doppler showed patial DVT on R popliteal vein. Pt has NO Hx of DVT is the past. --Pt complains of L hip and L upper leg pain that is thrombing/cramping, 8-9/10 intensity, constant, started 1 week ago after a fall. Pt visited ER at [facility] where CT of pelvis was unremarkable. --Pt complains of aggravation of her Left lower leg and L foot pain since anjel ral days ago. Pain is sharp/stabbing, 10/10 intensity, constant, and associated with a painful fullness sensation on L plantar foot area. Pt has Hx of 3 stents placed due to PAD. Pt just changed vascular specialist a few weeks ago due to insurance conflict. Pt was evaluated by her new vascular specialist and recommended to be evaluated by [facility]ou[facility] printer first. Pain medication given at ED did NOT provide any relief. PMD: Dr. Solange Gonzalez -Pmhx: HIV+, DM2, Hodgkin's Lymphoma (diagnosed 3 years ago, treated), Asthma, polyneuropathy, PAD -Socialhx: former smoker of 1.5ppd x 37 years, quit 10 years ago. Former Cocain user. Denies Etoh use. Single, has 4 kids. -Famhx: Mother had throat cancer, DM, asthma -SurgHx: Cholecystectomy. Tubal ligation. Left extremity angiogram and revascularization, stent placement x3 in 2018. Bladder surgery -Allergies: NKDA ED Course: --Vital signs with mild tachycardia. --CBC with mild leukocytosis, normocytic anemia which is chronic. --CMP with elevated creatinine 1.3 and decreased GFR 42. Creatinine --US Doppler showed patial DVT on R popliteal vein. --Toradol 15mg and Tramadol 50mg were administered with NO improvement of pain. Present on Admission - Present on Admission Any Indicators Present on Admission: No Review of Systems - Constitutional Constitutional: absent: Anorexia, Chills, Fever - EENT Nose/Mouth/Throat: absent: Nasal Congestion, Nasal Discharge, Nasal Trauma, Sore Throat, Neck Pain, Neck Mass - Cardiovascular Cardiovascular: absent: Chest Pain, Dyspnea, Palpitations - Respiratory Respiratory: absent: Cough, Dyspnea, Hemoptysis - Gastrointestinal Gastrointestinal: absent: Abdominal Pain, Cramping, Diarrhea, Nausea, Vomiting - Genitourinary Genitourinary: absent: Dysuria, Flank Pain, Hematuria - Musculoskeletal Musculoskeletal: absent: Numbness Past Patient History - Infectious Disease Hx of Infectious Diseases: None - Past Medical History & Family History Past Medical History?: Yes - Past Social History Alcohol: None - CARDIAC Hx Hypercholesterolemia: Yes - PULMONARY Hx Asthma: Yes Hx Chronic Obstructive Pulmonary Disease (COPD): Yes (Emphysema,) Hx Emphysema: Yes Hx Pneumonia: Yes (DECEMBER 2013 INTUBATED) - NEUROLOGICAL Hx Neurological Disorder: No - HEENT Hx HEENT Problems: Yes Hx Cataracts: Yes - RENAL Hx Chronic Kidney Disease: No - ENDOCRINE/METABOLIC Hx Endocrine Disorders: Yes Hx Diabetes Mellitus Type 2: Yes - HEMATOLOGICAL/ONCOLOGICAL Hx Anemia: Yes Hx Human Immunodeficiency Virus (HIV): Yes (levels undetectable) - INTEGUMENTARY Hx Cellulitis: Yes - MUSCULOSKELETAL/RHEUMATOLOGICAL Hx Falls: Yes - GASTROINTESTINAL Hx Gall Bladder Disease: Yes - GENITOURINARY/GYNECOLOGICAL Hx Genitourinary Disorders: Yes Other/Comment: BLADDER LIFT AND SURGERY prolapsed again - PSYCHIATRIC Hx Anxiety: Yes Hx Depression: Yes - SURGICAL HISTORY Hx Cholecystectomy: Yes - ANESTHESIA Hx Anesthesia: Yes Hx Anesthesia Reactions: No Hx Malignant Hyperthermia: No Meds Allergies/Adverse Reactions: Allergies Allergy/AdvReac Type Severity Reaction Status Date / Time No Known Allergies Allergy Verified 01/04/19 18:03 Physical Exam - Constitutional Appears: Well, No Acute Distress - Head Exam Head Exam: ATRAUMATIC, NORMAL INSPECTION, NORMOCEPHALIC - Eye Exam Eye Exam: EOMI, Normal appearance - ENT Exam ENT Exam: Mucous Membranes Moist - Neck Exam Neck exam: Positive for: Full Rom, Normal Inspection. Negative for: Lymphadenopathy, Meningismus - Respiratory Exam Respiratory Exam: NORMAL BREATHING PATTERN. absent: Rhonchi, Wheezes, Respiratory Distress, Stridor - Cardiovascular Exam Cardiovascular Exam: Tachycardia, +S1, +S2 - GI/Abdominal Exam GI & Abdominal Exam: Soft. absent: Distended, Guarding, Rebound, Rigid, Tenderness - Extremities Exam Extremities exam: Positive for: calf tenderness (Right), full ROM Additional comments: -Left leg: presence of erythema on dorsal aspect of foot, pulses present on DP and PT areas, strenght 5/5, SILT. -R leg: mild tenderness on R lower leg, SILT, strenght 5/5, DP and PT pulses present. - Neurological Exam Neurological exam: Alert, Oriented x3 Results - Vital Signs Recent Vital Signs: Last Vital Signs Temp 97.7 F 01/04/19 21:58 Pulse 90 01/04/19 21:58 Resp 16 01/04/19 21:58 BP 106/55 L 01/04/19 21:58 Pulse Ox 99 01/04/19 21:36 - Labs Result Diagrams: 01/04/19 19:10 01/04/19 19:10 Labs: Laboratory Results - last 24 hr 01/04/19 01/04/19 01/04/19 19:05 19:10 19:10 WBC 11.4 H D RBC 3.31 L Hgb 9.6 L Hct 28.9 L MCV 87.0 D MCH 28.8 MCHC 33.1 RDW 14.4 Plt Count 337 MPV 7.4 Neut % (Auto) 59.2 Lymph % (Auto) 30.0 [place] % (Auto) 8.0 Eos % (Auto) 2.3 Baso % (Auto) 0.5 Neut # (Auto) 6.8 Lymph # (Auto) 3.4 [place] # (Auto) 0.9 H Eos # (Auto) 0.3 Baso # (Auto) 0.1 PT INR APTT pO2 18 L VBG pH 7.33 VBG pCO2 46 VBG HCO3 22.0 VBG Total CO2 25.7 VBG O2 Sat (Calc) 28.5 L VBG Base Excess -1.8 L VBG Potassium 4.3 Sodium 134.0 136 Chloride 101.0 96 L Glucose 117 H Lactate 2.2 H FiO2 21.0 Potassium 4.2 Carbon Dioxide 23 Anion Gap 21 H BUN 19 H Creatinine 1.3 H Est GFR ( Amer) 50 Est GFR (Non-Af Amer) 42 Random Glucose 116 H Calcium 9.9 Total Bilirubin 0.2 AST 22 ALT 31 Alkaline Phosphatase 92 Total Protein 7.5 Albumin 4.1 Globulin 3.4 Albumin/Globulin Ratio 1.2 Venous Blood Potassium 4.3 01/04/19 19:10 WBC RBC Hgb Hct MCV MCH MCHC RDW Plt Count MPV Neut % (Auto) Lymph % (Auto) [place] % (Auto) Eos % (Auto) Baso % (Auto) Neut # (Auto) Lymph # (Auto) [place] # (Auto) Eos # (Auto) Baso # (Auto) PT 11.7 INR 1.0 APTT 36.0 pO2 VBG pH VBG pCO2 VBG HCO3 VBG Total CO2 VBG O2 Sat (Calc) VBG Base Excess VBG Potassium Sodium Chloride Glucose Lactate FiO2 Potassium Carbon Dioxide Anion Gap BUN Creatinine Est GFR ( Amer) Est GFR (Non-Af Amer) Random Glucose Calcium Total Bilirubin AST ALT Alkaline Phosphatase Total Protein Albumin Globulin Albumin/Globulin Ratio Venous Blood Potassium Assessment & Plan - Assessment and Plan (Free Text) Assessment: 63 y/o F with a PMHx of HIV, DM2, HLD, PAD, peripheral neuropathy and Hodgkins Lymphoma was admitted for evaluation and management of partial R popliteal DVT and intractable Left leg pain. Abnormal renal function test found on bloodwork. PLAN: >DVT of R popliteal vein --Acute, new --Creatinine Clearance of ~38. --Lovenox 70mg SC BID will be initiated. --Since tachycardia present, monitor vital signs. --If qualifies by insurance, will initiate Eliquis tomorrow. >Intractable Left Leg Pain --Chronic, Hx of PAD and stent placement, Hx of neuropathy --Pain management ordered: Tramadol for mild, Percocet for moderate and Morphine for severe. --Home meds resumed. >Abnormal renal function --New, creatinine 1.3-high and GFR 42-low. --Possibly acute kideny injury, NSAID' related as Ibuprofen on home meds, --Microalbuminuria on past labwork. --Stop NSAID's. --IV FLuids: LR at maintenance, 100mL/hr. --F/U tomorrow's BMP >HIV, asymptomatic --controlled --Last CD4 908 on 10/27/18, --Viral load undetectable. --Home meds resumed >DM2 --Chronic --Home meds resumed --ISS and hypoglycemia protocol >PAD --Chronic --Home meds resumed >Mild intermittent Asthma --Chronic, controlled --Home meds resumed. Case discussed with Dr Anam Al PGY-2 - Date & Time Date: 01/05/19 Time: 04:01
[2019-01-05] MEDS ORDERED: Dextrose 50% SYRINGE Inj (50 ml) IV PRN (00:13)
[2019-01-05] MEDS ORDERED: Glucagon Recombinant 1 mg Inj IM PRN (00:13)
[2019-01-05] MEDS: Lactated Ringer's 1,000 ML IV SCH ×2 (00:28→09:53)
[2019-01-05] MEDS: Morphine 4 MG/ML VIAL IVP PRN ×2 (03:17→07:26)
[2019-01-05 07:05] LABS: HEMOGLOBIN 9.3 g/dL (12.0-16.0); MEAN CELL VOLUME 86.4 fl (81.0-99.0); MEAN CORPUSCULAR HEMOGLOBIN 29.2 pg (27.0-31.0); MEAN CORPUSCULAR HGB CONC 33.8 g/dL (33.0-37.0); RBC 3.18 Mil/uL (3.80-5.20); RED CELL DISTRIBUTION WIDTH 14.2 % (11.5-14.5); WHITE BLOOD COUNT 7.8 K/uL (4.8-10.8)
[2019-01-05] MEDS: Insulin Lispro (humaLOG) 100 Units/ml Inj SC SCH ×3 (07:21→17:48)
[2019-01-05 07:22] LABS: BLOOD UREA NITROGEN 19 mg/dl (7-17); CALCIUM 9.6 mg/dL (8.4-10.2); GFR NON-AFRICAN AMERICAN 56
--- NOTE | 2019-01-05 08:37 | CP.PCM.DIS ---
Provider - Provider Date of Admission: 01/04/19 21:14 Attending physician: Ozzy Mendieta MD Time Spent in preparation of Discharge (in minutes): 38 Hospital Course - Lab Results Lab Results: Most Recent Lab Values WBC 7.8 K/uL (4.8-10.8) 01/05/19 06:05 RBC 3.18 Mil/uL (3.80-5.20) L 01/05/19 06:05 Hgb 9.3 g/dL (12.0-16.0) L 01/05/19 06:05 Hct 27.5 % (34.0-47.0) L 01/05/19 06:05 MCV 86.4 fl (81.0-99.0) 01/05/19 06:05 MCH 29.2 pg (27.0-31.0) 01/05/19 06:05 MCHC 33.8 g/dL (33.0-37.0) 01/05/19 06:05 RDW 14.2 % (11.5-14.5) 01/05/19 06:05 Plt Count 316 K/uL (130-400) 01/05/19 06:05 MPV 7.4 fl (7.2-11.7) 01/04/19 19:10 Neut % (Auto) 59.2 % (50.0-75.0) 01/04/19 19:10 Lymph % (Auto) 30.0 % (20.0-40.0) 01/04/19 19:10 Millard % (Auto) 8.0 % (0.0-10.0) 01/04/19 19:10 Eos % (Auto) 2.3 % (0.0-4.0) 01/04/19 19:10 Baso % (Auto) 0.5 % (0.0-2.0) 01/04/19 19:10 Neut # (Auto) 6.8 K/uL (1.8-7.0) 01/04/19 19:10 Lymph # (Auto) 3.4 K/uL (1.0-4.3) 01/04/19 19:10 Millard # (Auto) 0.9 K/uL (0.0-0.8) H 01/04/19 19:10 Eos # (Auto) 0.3 K/uL (0.0-0.7) 01/04/19 19:10 Baso # (Auto) 0.1 K/uL (0.0-0.2) 01/04/19 19:10 PT 11.7 Seconds (9.8-13.1) 01/04/19 19:10 INR 1.0 01/04/19 19:10 APTT 36.0 Seconds (25.6-37.1) 01/04/19 19:10 pO2 18 mm/Hg (30-55) L 01/04/19 19:05 VBG pH 7.33 (7.32-7.43) 01/04/19 19:05 VBG pCO2 46 mmHg (40-60) 01/04/19 19:05 VBG HCO3 22.0 mmol/L 01/04/19 19:05 VBG Total CO2 25.7 mmol/L (22-28) 01/04/19 19:05 VBG O2 Sat (Calc) 28.5 % (40-65) L 01/04/19 19:05 VBG Base Excess -1.8 mmol/L (0.0-2.0) L 01/04/19 19:05 VBG Potassium 4.3 mmol/L (3.6-5.2) 01/04/19 19:05 Sodium 134.0 mmol/L (132-148) 01/04/19 19:05 Chloride 101.0 mmol/L (98-107) 01/04/19 19:05 Glucose 117 mg/dL (65-105) H 01/04/19 19:05 Lactate 2.2 mmol/L (0.7-2.1) H 01/04/19 19:05 FiO2 21.0 % 01/04/19 19:05 Sodium 137 mmol/l (132-148) 01/05/19 06:05 Potassium 4.6 MMOL/L (3.6-5.0) 01/05/19 06:05 Chloride 99 mmol/L (98-107) 01/05/19 06:05 Carbon Dioxide 24 mmol/L (22-30) 01/05/19 06:05 Anion Gap 19 (10-20) 01/05/19 06:05 BUN 19 mg/dl (7-17) H 01/05/19 06:05 Creatinine 1.0 mg/dl (0.7-1.2) 01/05/19 06:05 Est GFR ( Amer) > 60 01/05/19 06:05 Est GFR (Non-Af Amer) 56 01/05/19 06:05 Random Glucose 96 mg/dL (65-105) 01/05/19 06:05 Calcium 9.6 mg/dL (8.4-10.2) 01/05/19 06:05 Total Bilirubin 0.2 mg/dl (0.2-1.3) 01/04/19 19:10 AST 22 U/L (14-36) 01/04/19 19:10 ALT 31 U/L (9-52) 01/04/19 19:10 Alkaline Phosphatase 92 U/L (38-126) 01/04/19 19:10 Total Protein 7.5 G/DL (6.3-8.2) 01/04/19 19:10 Albumin 4.1 g/dL (3.5-5.0) 01/04/19 19:10 Globulin 3.4 gm/dL (2.2-3.9) 01/04/19 19:10 Albumin/Globulin Ratio 1.2 (1.0-2.1) 01/04/19 19:10 Venous Blood Potassium 4.3 mmol/L (3.6-5.2) 01/04/19 19:05 Discharge Exam - Head Exam Head Exam: ATRAUMATIC, NORMAL INSPECTION, NORMOCEPHALIC Discharge Plan - Follow Up Plan Condition: FAIR Disposition: HOME/ ROUTINE Instructions: Deep Vein Thrombosis (Blood Clots in the Legs) (DC) Additional Instructions: follow up with primary MD 1 week [facility] visiting nurse [phone] Referrals: Solange Gonzalez MD [Family Provider] -
--- NOTE | 2019-01-05 09:00 | CARD ---
APPROVED REPORT Date of service: 01/04/2019 EKG Measurement Heart [id number] NM [id number] <Conclusion> Normal sinus rhythm Possible Left atrial enlargement Borderline ECG
[2019-01-05] MEDS: Pantoprazole 40 mg EC Tab PO SCH (09:01)
--- NOTE | 2019-01-05 09:34 | US ---
Date of service: 01/04/2019 PROCEDURE: Bilateral lower extremity venous duplex Doppler. HISTORY: r/o dvt COMPARISON: None available. TECHNIQUE: Bilateral common femoral, superficial femoral, popliteal and posterior tibial veins were evaluated. Flow was assessed with color Doppler, compressibility, assessment of phasic flow and augmentation response. FINDINGS: COMMON FEMORAL VEIN: Right CFV: Unremarkable. Left CFV: Unremarkable. SUPERFICIAL FEMORAL VEIN: Right SFV: Unremarkable. Left SFV: Unremarkable. POPLITEAL VEIN: Right Popliteal: There is nonocclusive eccentric thrombus in the right popliteal vein which is noncompressible. The appearance is more likely to represent chronic venous thrombus rather than acute thrombus but this cannot be determined with certainty. Please correlate with history. Left Popliteal: Unremarkable. POSTERIOR TIBIAL VEIN: Right PTV: Unremarkable. Left PTV: Unremarkable. OTHER FINDINGS: None. IMPRESSION: Nonocclusive eccentric thrombus in the right popliteal vein. Possible chronic venous thrombus. Cannot entirely rule out acute venous thrombosis though the appearance is atypical. Otherwise unremarkable. The preliminary findings for this examination were reported by [facility] at 8:38 p.m. on 01/04/2019. There is concurrence of this report with the preliminary findings.
[2019-01-05] MEDS: Oxycodone/Acetaminophen 5/325 mg Tab PO PRN ×2 (12:54→23:55)
--- NOTE | 2019-01-05 14:57 | CP.PCM.PN ---
<Rajeev Peralta - Last Filed: 01/05/19 15:09> Subjective - Date & Time of Evaluation Date of Evaluation: 01/05/19 Time of Evaluation: 14:54 - Subjective Subjective: Patient seen and examined this morning at bedside, c/o sharp pain on LLE, no acute overnight events. Otherwise she denies CP, sob, dizziness, cough. VSS, afebrile Objective - Vital Signs/Intake and Output Vital Signs (last 24 hours): Temp Pulse Resp BP Pulse Ox 98 F 93 H 20 95/58 L 96 01/05/19 08:16 01/05/19 08:16 01/05/19 08:16 01/05/19 08:16 01/05/19 08:16 - Medications Medications: Current Medications Albuterol (Ventolin Hfa 90 Mcg/Actuation (8 G)) 2 puff IH RQ6 PRN PRN Reason: Shortness of Breath Apixaban (Eliquis) 10 mg PO Q12H [facility]O; Protocol Last Admin: 01/05/19 12:47 Dose: 10 mg Aspirin (Ecotrin) 81 mg PO DAILY [facility] Last Admin: 01/05/19 09:02 Dose: 81 mg Atorvastatin Calcium (Lipitor) 20 mg PO QPM [facility] Cyclobenzaprine HCl (Flexeril) 10 mg PO BID [facility] Last Admin: 01/04/19 23:09 Dose: 10 mg Darunavir (Prezista) 800 mg PO DAILY [facility]; Protocol Last Admin: 01/05/19 09:01 Dose: 800 mg Dextrose (Dextrose 50% Inj) 0 ml IV STAT PRN; Protocol PRN Reason: Hypoglycemia Protocol Dextrose (Glutose 15) 0 gm PO ONCE PRN; Protocol PRN Reason: Hypoglycemia Protocol Dolutegravir Sodium (Tivicay) 50 mg PO DAILY [facility]; Protocol Gabapentin (Neurontin) 400 mg PO Q8 [facility] Last Admin: 01/05/19 09:00 Dose: 400 mg Glucagon (Glucagen Diagnostic Kit) 0 mg IM STAT PRN; Protocol PRN Reason: Hypoglycemia Protocol Lactated Ringer's (Lactated Ringer's) 1,000 mls @ 100 mls/hr IV .Q10H [facility] Last Admin: 01/05/19 09:53 Dose: 100 mls/hr Insulin Human Lispro (Humalog) 0 units SC ACCU-CHECK [facility]; Protocol Last Admin: 01/05/19 07:21 Dose: Not Given Metformin HCl (Glucophage) 1,000 mg PO BID [facility] Last Admin: 01/05/19 08:59 Dose: 1,000 mg Morphine Sulfate (Morphine) 2 mg IVP Q4 PRN PRN Reason: Pain, severe (8-10) Last Admin: 01/05/19 07:26 Dose: 2 mg Oxycodone/Acetaminophen (Percocet 5/325 Mg Tab) 2 tab PO Q4 PRN PRN Reason: Pain, moderate (4-7) Stop: 01/07/19 23:24 Last Admin: 01/05/19 12:54 Dose: 2 tab Pantoprazole Sodium (Protonix Ec Tab) 40 mg PO DAILY [facility] Last Admin: 01/05/19 09:01 Dose: 40 mg Ritonavir (Norvir) 100 mg PO DAILY [facility] Last Admin: 01/05/19 09:01 Dose: 100 mg Sertraline HCl (Zoloft) 50 mg PO DAILY [facility] Last Admin: 01/05/19 09:01 Dose: 50 mg Sitagliptin Phosphate (Januvia) 50 mg PO DAILY [facility] Last Admin: 01/05/19 09:00 Dose: 50 mg Tenofovir Disoproxil Fumarate (Viread) 300 mg PO DAILY [facility]; Protocol Last Admin: 01/05/19 09:02 Dose: 300 mg Tramadol HCl (Ultram) 50 mg PO Q4 PRN PRN Reason: Pain, Mild (1-3) Trazodone HCl (Desyrel) 75 mg PO HS [facility] Last Admin: 01/05/19 00:26 Dose: 75 mg - Labs Labs: 01/05/19 06:05 01/05/19 06:05 PT 11.7 Seconds (9.8-13.1) 01/04/19 19:10 INR 1.0 01/04/19 19:10 APTT 36.0 Seconds (25.6-37.1) 01/04/19 19:10 - Constitutional Appears: No Acute Distress - Head Exam Head Exam: NORMAL INSPECTION - Respiratory Exam Respiratory Exam: Clear to Ausculation Bilateral, NORMAL BREATHING PATTERN - Cardiovascular Exam Cardiovascular Exam: REGULAR RHYTHM, +S1, +S2. absent: Tachycardia, Murmur - GI/Abdominal Exam GI & Abdominal Exam: Soft, Normal Bowel Sounds. absent: Distended, Tenderness - Extremities Exam Extremities Exam: Calf Tenderness (L leg very tender to touch, no edema appreciated) - Neurological Exam Neurological Exam: Alert, CN II-XII Intact, Oriented x3 - Skin Skin Exam: Dry, Warm Assessment and Plan - Assessment and Plan (Free Text) Assessment: 63 y/o F with a PMHx of HIV, DM2, HLD, PAD, peripheral neuropathy and Hodgkins Lymphoma was admitted for evaluation and management of partial R popliteal DVT and intractable Left leg pain. PLAN: DVT of R popliteal vein - Acute - s/p Lovenox 70mg SC once. - Transitioned to Eliquis 10mg BID today (load dose) Intractable Left Leg Pain - Chronic, Hx of PAD and stent placement, Hx of neuropathy - Pain management: Tramadol for mild, Percocet for moderate and Morphine for severe. - Home meds resumed. - PT eval recs reevaluation tomorrow, may need assistance with rolling walker (unsteady on cane) - f/u with vascular surgery OP Abnormal renal function - improving - creatinine 1.0 and GFR 56. - Possibly acute kideny injury, NSAIDs related as Ibuprofen on home meds, - Avoid NSAIDs for pain - s/p IV FLuids - f/u BMP HIV, asymptomatic - controlled - Last CD4 908 on 10/27/18, - Viral load undetectable. - Home meds resumed DM2 - Chronic - Home meds resumed - ISS and hypoglycemia protocol PAD - Chronic - Home meds resumed - needs f/u with vascular surgery OP Mild intermittent Asthma - Chronic, controlled - Home meds resumed. Case discussed with Dr Perez Anna PGY 2 <Pari Todd - Last Filed: 01/05/19 18:41> Objective - Vital Signs/Intake and Output Vital Signs (last 24 hours): Temp Pulse Resp BP Pulse Ox 98.4 F 93 H 18 102/62 94 L 01/05/19 16:25 01/05/19 16:25 01/05/19 16:25 01/05/19 16:25 01/05/19 16:25 - Medications Medications: Current Medications Albuterol (Ventolin Hfa 90 Mcg/Actuation (8 G)) 2 puff IH RQ6 PRN PRN Reason: Shortness of Breath Apixaban (Eliquis) 10 mg PO Q12H [facility]; Protocol Last Admin: 01/05/19 12:47 Dose: 10 mg Aspirin (Ecotrin) 81 mg PO DAILY [facility] Last Admin: 01/05/19 09:02 Dose: 81 mg Atorvastatin Calcium (Lipitor) 20 mg PO QPM [facility] Last Admin: 01/05/19 17:50 Dose: 20 mg Cyclobenzaprine HCl (Flexeril) 10 mg PO BID [facility] Last Admin: 01/04/19 23:09 Dose: 10 mg Darunavir (Prezista) 800 mg PO DAILY [facility]; Protocol Last Admin: 01/05/19 09:01 Dose: 800 mg Dextrose (Dextrose 50% Inj) 0 ml IV STAT PRN; Protocol PRN Reason: Hypoglycemia Protocol Dextrose (Glutose 15) 0 gm PO ONCE PRN; Protocol PRN Reason: Hypoglycemia Protocol Dolutegravir Sodium (Tivicay) 50 mg PO DAILY [facility]; Protocol Gabapentin (Neurontin) 400 mg PO Q8 [facility] Last Admin: 01/05/19 17:47 Dose: 400 mg Glucagon (Glucagen Diagnostic Kit) 0 mg IM STAT PRN; Protocol PRN Reason: Hypoglycemia Protocol Insulin Human Lispro (Humalog) 0 units SC ACCU-CHECK [facility]; Protocol Last Admin: 01/05/19 17:48 Dose: 1 units Metformin HCl (Glucophage) 1,000 mg PO BID [facility] Last Admin: 01/05/19 17:47 Dose: 1,000 mg Morphine Sulfate (Morphine) 2 mg IVP Q4 PRN PRN Reason: Pain, severe (8-10) Last Admin: 01/05/19 17:39 Dose: 2 mg Oxycodone/Acetaminophen (Percocet 5/325 Mg Tab) 2 tab PO Q4 PRN PRN Reason: Pain, moderate (4-7) Stop: 01/07/19 23:24 Last Admin: 01/05/19 12:54 Dose: 2 tab Pantoprazole Sodium (Protonix Ec Tab) 40 mg PO DAILY [facility] Last Admin: 01/05/19 09:01 Dose: 40 mg Ritonavir (Norvir) 100 mg PO DAILY [facility] Last Admin: 01/05/19 09:01 Dose: 100 mg Sertraline HCl (Zoloft) 50 mg PO DAILY [facility] Last Admin: 01/05/19 09:01 Dose: 50 mg Sitagliptin Phosphate (Januvia) 50 mg PO DAILY [facility] Last Admin: 01/05/19 09:00 Dose: 50 mg Tenofovir Disoproxil Fumarate (Viread) 300 mg PO DAILY [facility]; Protocol Last Admin: 01/05/19 09:02 Dose: 300 mg Tramadol HCl (Ultram) 50 mg PO Q4 PRN PRN Reason: Pain, Mild (1-3) Trazodone HCl (Desyrel) 75 mg PO HS [facility] Last Admin: 01/05/19 00:26 Dose: 75 mg - Labs Labs: 01/05/19 06:05 01/05/19 06:05 PT 11.7 Seconds (9.8-13.1) 01/04/19 19:10 INR 1.0 01/04/19 19:10 APTT 36.0 Seconds (25.6-37.1) 01/04/19 19:10 Attending/Attestation - Attestation I have personally seen and examined this patient.: Yes I have fully participated in the care of the patient.: Yes I have reviewed all pertinent clinical information, including history, physical exam and plan: Yes Notes (Text): Diagnoses: RLE DVT Left PVD with Claudication HIV asymptomatic Mild Intermittent Asthma DM type II HTN - pt started on PO Eliquis, d/c Lovenox - pt states she has seen Vascular surgery as an outpt and is scheduled for a v ascular intervention after cardiac clearance - PT eval - PT rec gait training with walker
[2019-01-06] MEDS ORDERED: Sodium Chloride 0.9% 1,000 ML IV SCH (01:00)
[2019-01-06] MEDS: Pantoprazole 40 mg EC Tab PO SCH (08:34)
[2019-01-06] MEDS: Insulin Lispro (humaLOG) 100 Units/ml Inj SC SCH ×5 (08:35→23:21)
[2019-01-06] MEDS: Oxycodone/Acetaminophen 5/325 mg Tab PO PRN (10:24)
--- NOTE | 2019-01-06 14:46 | CP.PCM.CON ---
History of Present Illness - History of Present Illness History of Present Illness: Vladislav Montes, PGY-1, Cardiology Consult Note for Dr. Bolaños 63 year old female with past medical history of PAd, DM, HLD, HTN, HIV+, asthma, COPD, coma, lymphoma in remission presents with bilateral lower extremity pain worse on the left. Patient reports this pain started 1 year ago. The pain is stabbing, burning, and cramping and nature and has worsened over the past year. Patient reports that pain is worse with walking and pain minimally improved after multiple catheterization procedures where she had stents placed in her lef t leg. Patient reports her physicians told her that this was due to her uncontrolled diabetes which used to be in the 300s. Patient used to take insulin but now takes metformin and glipizide which have significantly improved her blood glucose level. Patient also reports chest tightness which is on and off. Patient last had it for the past week and stopped Thursday with aspirin, ibuprofen, and percocet. Patient reported that exertion did not worsen the pain. Patient also reports chronic SOB from COPD and had 2 episodes of vomiting from unknown causes today. Patient has also had dizziness for the past day. 12-point ROS was unremarkable except for what was mentioned above. PMH: as mentioned above PSH: tubal ligation, bladder life, gallstone removal FMHx: Mother from throat cancer. Father from unknown causes SHx: Smoked 1 PPD for 36 years. Stopped 12 years ago. Patient reports occassional alcohol use in the past. Patient also reports cocaine and marijuana use in the past All: NKDA PMD: Dr. Gonzalez Real Estate Appraiser: none Patient denies previous cardiac catheterizations and stress tests. Patient was found to have previous SFA stent occluded on prior lower extremity catheterization in 08/2018. Review of Systems - Review of Systems Review of Systems: except for what is mentioned above Past Patient History - Infectious Disease Hx of Infectious Diseases: None - Past Medical History & Family History Past Medical History?: Yes - Past Social History Smoking Status: Former Smoker - CARDIAC Hx Cardiac Disorders: Yes Hx Hypercholesterolemia: Yes - PULMONARY Hx Respiratory Disorders: Yes Hx Asthma: Yes Hx Chronic Obstructive Pulmonary Disease (COPD): Yes (Emphysema,) Hx Emphysema: Yes Hx Pneumonia: Yes (DECEMBER 2013 INTUBATED) - NEUROLOGICAL Hx Neurological Disorder: No - HEENT Hx HEENT Problems: Yes Hx Cataracts: Yes - RENAL Hx Chronic Kidney Disease: No - ENDOCRINE/METABOLIC Hx Endocrine Disorders: Yes Hx Diabetes Mellitus Type 2: Yes - HEMATOLOGICAL/ONCOLOGICAL Hx Blood Disorders: Yes Hx Anemia: Yes Hx Human Immunodeficiency Virus (HIV): Yes (levels undetectable) - INTEGUMENTARY Hx Dermatological Problems: Yes Hx Cellulitis: Yes - MUSCULOSKELETAL/RHEUMATOLOGICAL Hx Musculoskeletal Disorders: No Hx Falls: No - GASTROINTESTINAL Hx Gastrointestinal Disorders: Yes Hx Gall Bladder Disease: Yes - GENITOURINARY/GYNECOLOGICAL Hx Genitourinary Disorders: Yes Other/Comment: BLADDER LIFT AND SURGERY prolapsed again - PSYCHIATRIC Hx Psychophysiologic Disorder: Yes Hx Anxiety: Yes Hx Depression: Yes - SURGICAL HISTORY Hx Surgeries: Yes Hx Cholecystectomy: Yes - ANESTHESIA Hx Anesthesia: Yes Hx Anesthesia Reactions: No Hx Malignant Hyperthermia: No Meds Allergies/Adverse Reactions: Allergies Allergy/AdvReac Type Severity Reaction Status Date / Time No Known Allergies Allergy Verified 01/04/19 18:03 - Medications Medications: Current Medications Albuterol (Ventolin Hfa 90 Mcg/Actuation (8 G)) 2 puff IH RQ6 PRN PRN Reason: Shortness of Breath Apixaban (Eliquis) 10 mg PO Q12H [facility]; Protocol Last Admin: 01/06/19 08:34 Dose: 10 mg Aspirin (Ecotrin) 81 mg PO DAILY [facility] Last Admin: 01/06/19 08:33 Dose: 81 mg Atorvastatin Calcium (Lipitor) 20 mg PO QPM [facility] Last Admin: 01/05/19 17:50 Dose: 20 mg Cyclobenzaprine HCl (Flexeril) 10 mg PO BID [facility] Last Admin: 01/04/19 23:09 Dose: 10 mg Darunavir (Prezista) 800 mg PO DAILY [facility]; Protocol Last Admin: 01/06/19 08:33 Dose: 800 mg Dextrose (Dextrose 50% Inj) 0 ml IV STAT PRN; Protocol PRN Reason: Hypoglycemia Protocol Dextrose (Glutose 15) 0 gm PO ONCE PRN; Protocol PRN Reason: Hypoglycemia Protocol Dolutegravir Sodium (Tivicay) 50 mg PO DAILY [facility]; Protocol Last Admin: 01/06/19 08:33 Dose: 50 mg Gabapentin (Neurontin) 400 mg PO Q8 [facility] Last Admin: 01/06/19 08:33 Dose: 400 mg Glucagon (Glucagen Diagnostic Kit) 0 mg IM STAT PRN; Protocol PRN Reason: Hypoglycemia Protocol Insulin Human Lispro (Humalog) 0 units SC ACCU-CHECK [facility]; Protocol Last Admin: 01/06/19 12:33 Dose: 2 units Metformin HCl (Glucophage) 1,000 mg PO BID [facility] Last Admin: 01/06/19 08:33 Dose: 1,000 mg Morphine Sulfate (Morphine) 2 mg IVP Q4 PRN PRN Reason: Pain, severe (8-10) Last Admin: 01/05/19 21:18 Dose: 2 mg Oxycodone/Acetaminophen (Percocet 5/325 Mg Tab) 2 tab PO Q4 PRN PRN Reason: Pain, moderate (4-7) Stop: 01/07/19 23:24 Last Admin: 01/06/19 10:24 Dose: 2 tab Pantoprazole Sodium (Protonix Ec Tab) 40 mg PO DAILY [facility] Last Admin: 01/06/19 08:34 Dose: 40 mg Ritonavir (Norvir) 100 mg PO DAILY [facility] Last Admin: 01/06/19 08:33 Dose: 100 mg Sertraline HCl (Zoloft) 50 mg PO DAILY [facility] Last Admin: 01/06/19 08:34 Dose: 50 mg Sitagliptin Phosphate (Januvia) 50 mg PO DAILY [facility] Last Admin: 01/06/19 08:34 Dose: 50 mg Tenofovir Disoproxil Fumarate (Viread) 300 mg PO DAILY [facility]; Protocol Last Admin: 01/06/19 08:33 Dose: 300 mg Tramadol HCl (Ultram) 50 mg PO Q4 PRN PRN Reason: Pain, Mild (1-3) Trazodone HCl (Desyrel) 75 mg PO [facility] Last Admin: 01/05/19 21:01 Dose: 75 mg Physical Exam - Constitutional Appears: Well, Non-toxic, No Acute Distress - Head Exam Head Exam: ATRAUMATIC, NORMAL INSPECTION, NORMOCEPHALIC - Eye Exam Eye Exam: EOMI, PERRL - ENT Exam ENT Exam: Mucous Membranes Moist - Respiratory Exam Respiratory Exam: Clear to Auscultation Bilateral, NORMAL BREATHING PATTERN - Cardiovascular Exam Cardiovascular Exam: Tachycardia, REGULAR RHYTHM, +S1, +S2 - GI/Abdominal Exam GI & Abdominal Exam: Normal Bowel Sounds, Soft. absent: Tenderness - Extremities Exam Extremities exam: Positive for: full ROM, tenderness Additional comments: erythema of left lower extremity. unable to appreciate DP and PT pulses due to patient's significant pain. will reevaluate when pain reduces - Neurological Exam Neurological exam: Alert, CN II-XII Intact, Oriented x3, Reflexes Normal - Skin Skin Exam: Dry, Intact Results - Vital Signs Recent Vital Signs: Last Vital Signs Temp 98.7 F 01/06/19 07:59 Pulse 86 01/06/19 11:05 Resp 20 01/06/19 07:59 BP 116/74 01/06/19 07:59 Pulse Ox 96 01/06/19 11:05 - Labs Result Diagrams: 01/05/19 06:05 01/05/19 06:05 Labs: Laboratory Results - last 24 hr 01/05/19 01/05/19 01/05/19 12:18 15:58 20:59 D-Dimer, Quantitative POC Glucose (mg/dL) 215 H 188 H 134 H 01/06/19 01/06/19 01/06/19 05:34 10:20 10:59 D-Dimer, Quantitative < 200 POC Glucose (mg/dL) 206 H 225 H Assessment & Plan - Assessment and Plan (Free Text) Assessment: PAD Cellulitis HTN HLD DM II COPD Plan: PAD Nonocclusive thrombus in the right popliteal vein Cellulitis HTN HLD DM II COPD Lower extremity ultrasound 01/04/19: nonocclusive eccentric thrombus in the right popliteal vein. Possible chronic venous thrombus. Cannot rule out acute venous thrombosis though appearance is atypical. EKG: NSR with HR: 90 D-dimer: <200 Unlikely acute DVT as D-dimer is unremarkable CTA of bilateral lower extremities to evaluate vasculature of bilateral lower extremities for possible future intervention as patient has significant history for PAD Will follow up troponinx3 and BNP Medications: Apixaban 10 mg Q12 Aspirin 81 mg daily Lisinopril 5 mg daily Lipitor 20 mg daily Metformin 1000 mg BID Lispro - Date & Time Date: 01/06/19 Time: 14:48
--- NOTE | 2019-01-06 15:57 | CP.PCM.PN ---
<Rajeev Peralta - Last Filed: 01/06/19 15:49> Subjective - Date & Time of Evaluation Date of Evaluation: 01/06/19 Time of Evaluation: 08:31 - Subjective Subjective: Patient seen and examined this morning at bedside, still c/o pain on LLE but little better, no acute overnight events. Otherwise she denies CP, sob, cough. VSS, afebrile Objective - Vital Signs/Intake and Output Vital Signs (last 24 hours): Temp Pulse Resp BP Pulse Ox 98.7 F 86 20 116/74 96 01/06/19 07:59 01/06/19 11:05 01/06/19 07:59 01/06/19 07:59 01/06/19 11:05 - Medications Medications: Current Medications Albuterol (Ventolin Hfa 90 Mcg/Actuation (8 G)) 2 puff IH RQ6 PRN PRN Reason: Shortness of Breath Apixaban (Eliquis) 10 mg PO Q12H [facility]; Protocol Last Admin: 01/06/19 08:34 Dose: 10 mg Aspirin (Ecotrin) 81 mg PO DAILY [facility] Last Admin: 01/06/19 08:33 Dose: 81 mg Atorvastatin Calcium (Lipitor) 20 mg PO QPM [facility] Last Admin: 01/05/19 17:50 Dose: 20 mg Cyclobenzaprine HCl (Flexeril) 10 mg PO BID [facility] Last Admin: 01/04/19 23:09 Dose: 10 mg Darunavir (Prezista) 800 mg PO DAILY [facility]; Protocol Last Admin: 01/06/19 08:33 Dose: 800 mg Dextrose (Dextrose 50% Inj) 0 ml IV STAT PRN; Protocol PRN Reason: Hypoglycemia Protocol Dextrose (Glutose 15) 0 gm PO ONCE PRN; Protocol PRN Reason: Hypoglycemia Protocol Dolutegravir Sodium (Tivicay) 50 mg PO DAILY [facility]; Protocol Last Admin: 01/06/19 08:33 Dose: 50 mg Gabapentin (Neurontin) 400 mg PO Q8 [facility] Last Admin: 01/06/19 08:33 Dose: 400 mg Glucagon (Glucagen Diagnostic Kit) 0 mg IM STAT PRN; Protocol PRN Reason: Hypoglycemia Protocol Insulin Human Lispro (Humalog) 0 units SC ACCU-CHECK [facility]; Protocol Last Admin: 01/06/19 12:33 Dose: 2 units Metformin HCl (Glucophage) 1,000 mg PO BID [facility] Last Admin: 01/06/19 08:33 Dose: 1,000 mg Morphine Sulfate (Morphine) 2 mg IVP Q4 PRN PRN Reason: Pain, severe (8-10) Last Admin: 01/05/19 21:18 Dose: 2 mg Oxycodone/Acetaminophen (Percocet 5/325 Mg Tab) 2 tab PO Q4 PRN PRN Reason: Pain, moderate (4-7) Stop: 01/07/19 23:24 Last Admin: 01/06/19 10:24 Dose: 2 tab Pantoprazole Sodium (Protonix Ec Tab) 40 mg PO DAILY [facility] Last Admin: 01/06/19 08:34 Dose: 40 mg Ritonavir (Norvir) 100 mg PO DAILY [facility] Last Admin: 01/06/19 08:33 Dose: 100 mg Sertraline HCl (Zoloft) 50 mg PO DAILY [facility] Last Admin: 01/06/19 08:34 Dose: 50 mg Sitagliptin Phosphate (Januvia) 50 mg PO DAILY [facility] Last Admin: 01/06/19 08:34 Dose: 50 mg Tenofovir Disoproxil Fumarate (Viread) 300 mg PO DAILY [facility]; Protocol Last Admin: 01/06/19 08:33 Dose: 300 mg Tramadol HCl (Ultram) 50 mg PO Q4 PRN PRN Reason: Pain, Mild (1-3) Trazodone HCl (Desyrel) 75 mg PO HS [facility] Last Admin: 01/05/19 21:01 Dose: 75 mg - Labs Labs: 01/05/19 06:05 01/05/19 06:05 PT 11.7 Seconds (9.8-13.1) 01/04/19 19:10 INR 1.0 01/04/19 19:10 APTT 36.0 Seconds (25.6-37.1) 01/04/19 19:10 - Constitutional Appears: No Acute Distress - Head Exam Head Exam: NORMAL INSPECTION - Respiratory Exam Respiratory Exam: Clear to Ausculation Bilateral, NORMAL BREATHING PATTERN - Cardiovascular Exam Cardiovascular Exam: REGULAR RHYTHM, +S1, +S2 - GI/Abdominal Exam GI & Abdominal Exam: Soft, Normal Bowel Sounds. absent: Tenderness - Extremities Exam Additional comments: Calf Tenderness (L leg very tender to touch, no edema appreciated), DP/PT no appreciated due to very exquisite pain at touch - Neurological Exam Neurological Exam: Alert, Awake, Oriented x3 - Skin Skin Exam: Dry, Warm Assessment and Plan - Assessment and Plan (Free Text) Assessment: 63 y/o F with a PMHx of HIV, DM2, HLD, PAD, peripheral neuropathy and Hodgkins Lymphoma was admitted for evaluation and management of partial R popliteal DVT and intractable Left leg pain. CTA b/l LE: : -- Multifocal areas of moderate to severe stenosis throughout the SFA. -- Severe stenosis of the proximal and mid popliteal artery. -- Multifocal areas of stenosis throughout the peroneal artery. Anterior tibial artery occludes in the proximal segment with distal reconstitution -- Common femoral artery and profunda femoral artery patent. -- SFA stent is patent has severe in stent stenosis. -- Mild stenosis of popliteal artery. -- Runoff shows a patent posterior tibial artery. Anterior tibial artery is occluded in the proximal segment with no definite reconstitution. The peroneal artery is occluded. Lower extremity ultrasound 01/04/19: nonocclusive eccentric thrombus in the right popliteal vein. Possible chronic venous thrombus. Cannot rule out acute venous thrombosis though appearance is atypical. EKG: NSR with HR: 90 D-dimer: <200 Plan: DVT of R popliteal vein - Acute - on Eliquis 10mg BID today (load dose) - ASA daily Intractable Left Leg Pain - Chronic, Hx of PAD and stent placement, Hx of neuropathy - Pain management: Tramadol for mild, Percocet for moderate and Morphine for severe. - Home meds resumed. - PT - Interventional Cardiology Dr Bolaños consulted, recs appreciated Abnormal renal function - improved - creatinine 1.0 and GFR 56. - Possibly acute kideny injury, NSAIDs related as Ibuprofen on home meds, - Avoid NSAIDs for pain - s/p IV FLuids - f/u BMP HIV, asymptomatic - controlled - Last CD4 908 on 10/27/18, - Viral load undetectable. - Home meds resumed DM2 - Chronic - Home meds resumed - ISS and hypoglycemia protocol PAD - Chronic - Home meds resumed - Cardiology consulted - CTA 08/2018: as above - previous SFA stent occluded on prior lower extremity catheterization in 08/2018. Mild intermittent Asthma - Chronic, controlled - Home meds resumed. Case discussed with Dr Perez Anna PGY 2 <Pari Todd - Last Filed: 01/06/19 17:57> Objective - Vital Signs/Intake and Output Vital Signs (last 24 hours): Temp Pulse Resp BP Pulse Ox 98.1 F 93 H 18 111/68 94 L 01/06/19 16:11 01/06/19 16:11 01/06/19 16:11 01/06/19 16:11 01/06/19 16:11 - Medications Medications: Current Medications Albuterol (Ventolin Hfa 90 Mcg/Actuation (8 G)) 2 puff IH RQ6 PRN PRN Reason: Shortness of Breath Apixaban (Eliquis) 10 mg PO Q12H [facility]; Protocol Last Admin: 01/06/19 08:34 Dose: 10 mg Aspirin (Ecotrin) 81 mg PO DAILY [facility] Last Admin: 01/06/19 08:33 Dose: 81 mg Atorvastatin Calcium (Lipitor) 20 mg PO QPM [facility] Last Admin: 01/06/19 17:23 Dose: 20 mg Cyclobenzaprine HCl (Flexeril) 10 mg PO BID [facility] Last Admin: 01/04/19 23:09 Dose: 10 mg Darunavir (Prezista) 800 mg PO DAILY [facility]; Protocol Last Admin: 01/06/19 08:33 Dose: 800 mg Dextrose (Dextrose 50% Inj) 0 ml IV STAT PRN; Protocol PRN Reason: Hypoglycemia Protocol Dextrose (Glutose 15) 0 gm PO ONCE PRN; Protocol PRN Reason: Hypoglycemia Protocol Dolutegravir Sodium (Tivicay) 50 mg PO DAILY [facility]; Protocol Last Admin: 01/06/19 08:33 Dose: 50 mg Gabapentin (Neurontin) 400 mg PO Q8 [facility] Last Admin: 01/06/19 17:24 Dose: 400 mg Glucagon (Glucagen Diagnostic Kit) 0 mg IM STAT PRN; Protocol PRN Reason: Hypoglycemia Protocol Insulin Human Lispro (Humalog) 0 units SC ACCU-CHECK [facility]; Protocol Last Admin: 01/06/19 17:23 Dose: 1 units Lisinopril (Zestril) 5 mg PO DAILY [facility] Morphine Sulfate (Morphine) 2 mg IVP Q4 PRN PRN Reason: Pain, severe (8-10) Last Admin: 01/05/19 21:18 Dose: 2 mg Oxycodone/Acetaminophen (Percocet 5/325 Mg Tab) 2 tab PO Q4 PRN PRN Reason: Pain, moderate (4-7) Stop: 01/07/19 23:24 Last Admin: 01/06/19 10:24 Dose: 2 tab Pantoprazole Sodium (Protonix Ec Tab) 40 mg PO DAILY [facility] Last Admin: 01/06/19 08:34 Dose: 40 mg Ritonavir (Norvir) 100 mg PO DAILY [facility] Last Admin: 01/06/19 08:33 Dose: 100 mg Sertraline HCl (Zoloft) 50 mg PO DAILY [facility] Last Admin: 01/06/19 08:34 Dose: 50 mg Sitagliptin Phosphate (Januvia) 50 mg PO DAILY [facility] Last Admin: 01/06/19 08:34 Dose: 50 mg Tenofovir Disoproxil Fumarate (Viread) 300 mg PO DAILY [facility]; Protocol Last Admin: 01/06/19 08:33 Dose: 300 mg Tramadol HCl (Ultram) 50 mg PO Q4 PRN PRN Reason: Pain, Mild (1-3) Trazodone HCl (Desyrel) 75 mg PO [facility] Last Admin: 01/05/19 21:01 Dose: 75 mg - Labs Labs: 01/05/19 06:05 01/05/19 06:05 PT 11.7 Seconds (9.8-13.1) 01/04/19 19:10 INR 1.0 01/04/19 19:10 APTT 36.0 Seconds (25.6-37.1) 01/04/19 19:10 Attending/Attestation - Attestation I have personally seen and examined this patient.: Yes I have fully participated in the care of the patient.: Yes I have reviewed all pertinent clinical information, including history, physical exam and plan: Yes Notes (Text): Diagnoses: RLE DVT Left PVD with Claudication, Pain, r/o Ischemic Limb HIV asymptomatic Mild Intermittent Asthma DM type II HTN Anemia of Chronic disease - pt started on PO Eliquis for both DVT and the PVD - pt complains of severe pain on her left LE, previous hx of SFA stenosis , hx of [place] angioplasty - Vascular Surgery consulted- discussed case with Dr Bolaños- rec CTA of the LLE - PT consulted- rec use Rolling walker - cont ASA, statin -d/c Metformin as pt going for IV contrast study, start Levemir 8 units instead - BP control - counseled to quit smoking - cont Anti retrovirals - Pain mgt - Percocet
[2019-01-06] MEDS ORDERED: Iodixanol 320 MG/ML 100 ML BOTTLE IV ONE (17:42)
[2019-01-06] MEDS ORDERED: Sodium Chloride 0.9% 100 ML ONE (17:42)
[2019-01-06 18:01] LABS: B-TYPE NATRIURETIC PEPTIDE 457 pg/ml (0-900)
[2019-01-06] MEDS ORDERED: Insulin Detemir 100 Units/ml Inj SC SCH (22:00)
[2019-01-06] MEDS ORDERED: POLYETHYLENE GLYCOL 3350 17 GM/Dose PACKET PO ONE (22:22)
[2019-01-06] MEDS ORDERED: Lidocaine 5% Patch TD SCH (22:30)
[2019-01-07 06:39] LABS: HEMOGLOBIN 9.5 g/dL (12.0-16.0); MEAN CELL VOLUME 85.5 fl (81.0-99.0); MEAN CORPUSCULAR HGB CONC 35.1 g/dL (33.0-37.0); RBC 3.17 Mil/uL (3.80-5.20); RED CELL DISTRIBUTION WIDTH 14.1 % (11.5-14.5); WHITE BLOOD COUNT 8.4 K/uL (4.8-10.8)
[2019-01-07] MEDS: Insulin Lispro (humaLOG) 100 Units/ml Inj SC SCH ×2 (06:42→12:00)
[2019-01-07 06:47] LABS: BLOOD UREA NITROGEN 15 mg/dl (7-17); GFR NON-AFRICAN AMERICAN > 60
[2019-01-07 06:48] LABS: CALCIUM 9.4 mg/dL (8.4-10.2)
[2019-01-07 07:53] VITALS: BP 112/68; PULSE 100; RESP 20; TEMP 97.8; O2SAT 96
[2019-01-07] MEDS: Pantoprazole 40 mg EC Tab PO SCH (08:58)
--- NOTE | 2019-01-07 11:40 | RAD ---
Date of service: 01/07/2019 HISTORY: Fever COMPARISON: Comparison chest 08/04/2018. FINDINGS: LUNGS: There may be some minimal scarring changes in the left lung base PLEURA: No significant pleural effusion identified, no pneumothorax apparent. CARDIOVASCULAR: No aortic atherosclerotic calcification present. Normal cardiac size. No pulmonary vascular congestion. OSSEOUS STRUCTURES: No significant abnormalities. VISUALIZED UPPER ABDOMEN: Metallic clips right upper quadrant of the abdomen consistent with prior cholecystectomy OTHER FINDINGS: None. IMPRESSION: Suspect minimal linear scarring changes left lung base Comparison chest 08/04/2018.
--- NOTE | 2019-01-07 11:57 | CT ---
Date of service: 01/06/2019 PROCEDURE: CT Angiography Abdomen, Pelvis and Lower Extremity with Contrast HISTORY: evaluation of PAD COMPARISON: None available. TECHNIQUE: Technique: CT angiography of the abdomen, pelvis and bilateral lower extremities performed in the arterial phase of enhancement. Coronal and sagittal reformats, and well as rotating MIP images of the vessels generated at the workstation. Intravenous contrast dose: 100 cubic centimeters Visipaque 320 Radiation dose: Total exam DLP = 959.21 mGy-cm. This CT exam was performed using one or more of the following dose reduction techniques: Automated exposure control, adjustment of the mA and/or kV according to patient size, and/or use of iterative reconstruction technique. FINDINGS: CT ANGIOGRAPHY: ABDOMINAL AORTA:: Mild plaque in the abdominal aorta which is otherwise unremarkable. MAJOR AORTIC BRANCHES: Celiac [place]: Unremarkable. Superior mesenteric artery: Unremarkable. Inferior mesenteric artery: Unremarkable. Renal arteries: Unremarkable. PELVIC ARTERIES: Right Common Iliac: Unremarkable. Right External Iliac: Unremarkable. Right Internal Iliac: Unremarkable. Left Common Iliac: Unremarkable. Left External Iliac: Unremarkable. Left Internal Iliac: Unremarkable. RIGHT LOWER EXTREMITY ARTERIES: Right Common Femoral: Unremarkable. Right Superficial Femoral: There is stenosis at the origin of the SFA. Multiple areas of moderate to severe stenosis throughout the mid and distal SFA. Right Profunda Femoris: Unremarkable. Right Popliteal:Severe stenosis of the popliteal artery. Right Anterior Tibial: Severely stenotic or occluded in the mid and distal segments. Right Tibioperoneal Trunk: Unremarkable. Right Posterior Tibial: Unremarkable. Right Peroneal: Severely stenotic in the mid and distal segments. Right dorsalis pedis : Unremarkable. LEFT LOWER EXTREMITY ARTERIES: Left Common Femoral: Unremarkable. Left Superficial Femoral: Previously stented SFA has mild to severe in stent stenosis. Distal SFA is mildly stenotic. Left Profunda Femoris: Unremarkable. Left Popliteal: Moderate stenosis of the popliteal artery. Left Anterior Tibial: Occluded after proximal segment. Left Tibioperoneal Trunk: Unremarkable. Left Posterior Tibial: Unremarkable. Left Peroneal: Occluded in the proximal segment with a brief mid segment reconstitution then occludes again. Left Dorsalis pedis: Unremarkable. NON-ANGIOGRAPHIC ASPECT OF THE EXAM: LOWER THORAX: Unremarkable. LIVER: Unremarkable. No gross lesion or ductal dilatation. GALLBLADDER AND BILE DUCTS: Cholecystectomy. PANCREAS: Unremarkable. No gross lesion or ductal dilatation. SPLEEN: Unremarkable. ADRENALS: Unremarkable. No mass. KIDNEYS AND URETERS: Unremarkable. No hydronephrosis. No solid mass. STOMACH AND BOWEL: Unremarkable. No obstruction. No gross mural thickening. APPENDIX: Normal appendix. PERITONEUM: Unremarkable. No free fluid. No free air. LYMPH NODES: Unremarkable. No enlarged lymph nodes. BLADDER: Unremarkable. REPRODUCTIVE: Unremarkable. BONES: No acute fracture. OTHER FINDINGS: None. IMPRESSION: CT ANGIOGRAM ABDOMEN/PELVIS: 1. Mild plaque in the abdominal aorta without significant stenosis or Aneurysm. 2. Pelvic arteries are unremarkable. RIGHT LOWER EXTREMITY CT ANGIOGRAM: 1. The common femoral artery and profunda femoral artery normal. 2. The SFA has severe stenosis at the origin and multiple areas of moderate to severe stenosis throughout the mid and distal segments. 3. Severe stenosis of popliteal artery. 4. Runoff shows a patent posterior tibial artery. The anterior tibial artery is patent proximal segment is occluded. The peroneal artery is severely stenotic in the mid and distal segments. LEFT LOWER EXTREMITY CT ANGIOGRAM: 1. The common femoral artery and profunda femoral artery normal. 2. The SFA has been previously stented and has mild to severe in stent stenosis. Distal SFA is moderately stenotic. 3. There is moderate stenosis of popliteal artery. 4. Runoff shows a patent posterior tibial artery. The anterior tibial artery is occluded after the proximal segment. Peroneal artery is occluded in the proximal segment with brief mid segment reconstitution then occludes again.
--- NOTE | 2019-01-07 12:11 | CP.PCM.PN ---
Subjective - Date & Time of Evaluation Date of Evaluation: 01/07/19 Time of Evaluation: 12:06 - Subjective Subjective: Vladislav Montes, PGY-1, Cardiology Progress Note for Dr. Bolaños Patient seen and evaluated at bedside. Patient continues to complain of left lower extremity pain but reports it has improved. Patient has no other symptoms at this time except for chest tightness worse with palpation. Objective - Vital Signs/Intake and Output Vital Signs (last 24 hours): Temp Pulse Resp BP Pulse Ox 97.8 F 100 H 20 112/68 96 01/07/19 09:00 01/07/19 09:02 01/07/19 09:00 01/07/19 09:02 01/07/19 07:53 - Medications Medications: Current Medications Albuterol (Ventolin Hfa 90 Mcg/Actuation (8 G)) 2 puff IH RQ6 PRN PRN Reason: Shortness of Breath Apixaban (Eliquis) 10 mg PO Q12H [facility]; Protocol Last Admin: 01/07/19 11:59 Dose: 10 mg Aspirin (Ecotrin) 81 mg PO DAILY [facility] Last Admin: 01/07/19 08:54 Dose: 81 mg Atorvastatin Calcium (Lipitor) 20 mg PO QPM [facility] Last Admin: 01/06/19 17:23 Dose: 20 mg Cyclobenzaprine HCl (Flexeril) 10 mg PO BID [facility] Last Admin: 01/04/19 23:09 Dose: 10 mg Darunavir (Prezista) 800 mg PO DAILY [facility]; Protocol Last Admin: 01/07/19 08:58 Dose: 800 mg Dextrose (Dextrose 50% Inj) 0 ml IV STAT PRN; Protocol PRN Reason: Hypoglycemia Protocol Dextrose (Glutose 15) 0 gm PO ONCE PRN; Protocol PRN Reason: Hypoglycemia Protocol Dolutegravir Sodium (Tivicay) 50 mg PO DAILY [facility]; Protocol Last Admin: 01/07/19 09:01 Dose: 50 mg Gabapentin (Neurontin) 400 mg PO Q8 [facility] Last Admin: 01/07/19 08:57 Dose: 400 mg Glucagon (Glucagen Diagnostic Kit) 0 mg IM STAT PRN; Protocol PRN Reason: Hypoglycemia Protocol Insulin Detemir (Levemir) 8 units SC HS [facility] Last Admin: 01/06/19 21:43 Dose: 8 units Insulin Human Lispro (Humalog) 0 units SC ACCU-CHECK [facility]; Protocol Last Admin: 01/07/19 12:00 Dose: 3 units Lidocaine (Lidoderm) 1 ea TD HS [facility] Last Admin: 01/06/19 23:19 Dose: 1 ea Lisinopril (Zestril) 5 mg PO DAILY [facility] Last Admin: 01/07/19 09:02 Dose: 5 mg Morphine Sulfate (Morphine) 2 mg IVP Q4 PRN PRN Reason: Pain, severe (8-10) Last Admin: 01/07/19 09:13 Dose: 2 mg Oxycodone/Acetaminophen (Percocet 5/325 Mg Tab) 2 tab PO Q4 PRN PRN Reason: Pain, moderate (4-7) Stop: 01/07/19 23:24 Last Admin: 01/06/19 10:24 Dose: 2 tab Pantoprazole Sodium (Protonix Ec Tab) 40 mg PO DAILY [facility] Last Admin: 01/07/19 08:58 Dose: 40 mg Ritonavir (Norvir) 100 mg PO DAILY [facility] Last Admin: 01/07/19 08:58 Dose: 100 mg Senna/Docusate Sodium (Senokot S 50 Mg-8.6 Mg) 1 tab PO HS [facility] Sertraline HCl (Zoloft) 50 mg PO DAILY [facility] Last Admin: 01/07/19 09:04 Dose: 50 mg Sitagliptin Phosphate (Januvia) 50 mg PO DAILY [facility] Last Admin: 01/07/19 08:55 Dose: 50 mg Tenofovir Disoproxil Fumarate (Viread) 300 mg PO DAILY [facility]; Protocol Last Admin: 01/07/19 09:02 Dose: 300 mg Tramadol HCl (Ultram) 50 mg PO Q4 PRN PRN Reason: Pain, Mild (1-3) Last Admin: 01/06/19 21:48 Dose: 50 mg Trazodone HCl (Desyrel) 75 mg PO HS [facility] Last Admin: 01/06/19 22:27 Dose: 75 mg - Labs Labs: 01/07/19 05:30 01/07/19 05:30 PT 11.7 Seconds (9.8-13.1) 01/04/19 19:10 INR 1.0 01/04/19 19:10 APTT 36.0 Seconds (25.6-37.1) 01/04/19 19:10 - Constitutional Appears: Well, Non-toxic, No Acute Distress - Head Exam Head Exam: ATRAUMATIC, NORMAL INSPECTION, NORMOCEPHALIC - Eye Exam Eye Exam: EOMI, PERRL - ENT Exam ENT Exam: Mucous Membranes Moist - Respiratory Exam Respiratory Exam: Clear to Auscultation Bilateral, NORMAL BREATHING PATTERN - Cardiovascular Exam Cardiovascular Exam: Tachycardia, REGULAR RHYTHM, +S1, +S2 - GI/Abdominal Exam GI & Abdominal Exam: Normal Bowel Sounds, Soft. absent: Tenderness - Extremities Exam Extremities exam: Positive for: full ROM, tenderness Additional comments: erythema of left lower extremity. unable to appreciate DP and PT pulses due to patient's significant pain. will reevaluate when pain reduces - Neurological Exam Neurological exam: Alert, CN II-XII Intact, Oriented x3, Reflexes Normal - Skin Skin Exam: Dry, Intact Assessment and Plan - Assessment and Plan (Free Text) Assessment: PAD Cellulitis HTN HLD DM II COPD Plan: PAD Nonocclusive thrombus in the right popliteal vein Cellulitis HTN HLD DM II COPD Lower extremity ultrasound 01/04/19: nonocclusive eccentric thrombus in the right popliteal vein. Possible chronic venous thrombus. Cannot rule out acute venous thrombosis though appearance is atypical. CTA of bilateral lower extremities 01/06/19: mild plaque in the abdominal aorta without significant stenosis. Right lower extremity shows SFA with severe stenosis at the origin and multiple areas of moderate to severe stenosis throughout the mid and distal segements, sever stenosis of the popliteal artery, stenosis of the peroneal artery at the mid and distal segments. Left lower ex tremity shows SFA has been previously stented and has mild to severe disease in stent stenosis. Distal SFA is moderately stenotic. There is moderate stenosis of popliteal artery. Anterior tibial artery is occluded after the proximal segment. Peroneal artery is occluded in the proximal segment with brief mid segment reconstitution then occludes again. EKG: NSR with HR: 90 D-dimer: <200 Tropx2: negative BNP: 457 Unlikely acute DVT as D-dimer is unremarkable Likely will need catheterization of bilateral lower extremities due to severe PAD Medications: Apixaban 10 mg Q12 Aspirin 81 mg daily Lisinopril 5 mg daily Lipitor 20 mg daily Metformin 1000 mg BID Lispro
[2019-01-07] MEDS: Oxycodone/Acetaminophen 5/325 mg Tab PO PRN (13:07)
--- NOTE | 2019-01-07 13:48 | CP.PCM.DIS ---
<Rajeev Peralta - Last Filed: 01/07/19 14:54> Provider - Provider Date of Admission: 01/04/19 21:14 Attending physician: Ozzy Mendieta MD Consults: 01/06/19 10:34 Cardiology Consult Routine Comment: Consulting Provider: Jose Alberto Bolaños Consulting Physician: Jose Alberto Bolaños Reason for Consult: h/o PAD, LLE pain Time Spent in preparation of Discharge (in minutes): 38 Diagnosis - Discharge Diagnosis (1) Deep vein thrombosis (DVT) of popliteal vein of right lower extremity Status: Acute (2) Chronic pain of lower extremity Status: Acute (3) Acute kidney injury Status: Acute (4) PVD (peripheral vascular disease) Status: Acute (5) Diabetes mellitus Status: Acute (6) HIV (human immunodeficiency virus infection) Status: Chronic Hospital Course - Lab Results Lab Results: Most Recent Lab Values WBC 8.4 K/uL (4.8-10.8) 01/07/19 05:30 RBC 3.17 Mil/uL (3.80-5.20) L 01/07/19 05:30 Hgb 9.5 g/dL (12.0-16.0) L 01/07/19 05:30 Hct 27.1 % (34.0-47.0) L 01/07/19 05:30 MCV 85.5 fl (81.0-99.0) 01/07/19 05:30 MCH 30.0 pg (27.0-31.0) 01/07/19 05:30 MCHC 35.1 g/dL (33.0-37.0) 01/07/19 05:30 RDW 14.1 % (11.5-14.5) 01/07/19 05:30 Plt Count 346 K/uL (130-400) 01/07/19 05:30 MPV 7.4 fl (7.2-11.7) 01/04/19 19:10 Neut % (Auto) 59.2 % (50.0-75.0) 01/04/19 19:10 Lymph % (Auto) 30.0 % (20.0-40.0) 01/04/19 19:10 [place] % (Auto) 8.0 % (0.0-10.0) 01/04/19 19:10 Eos % (Auto) 2.3 % (0.0-4.0) 01/04/19 19:10 Baso % (Auto) 0.5 % (0.0-2.0) 01/04/19 19:10 Neut # (Auto) 6.8 K/uL (1.8-7.0) 01/04/19 19:10 Lymph # (Auto) 3.4 K/uL (1.0-4.3) 01/04/19 19:10 [place] # (Auto) 0.9 K/uL (0.0-0.8) H 01/04/19 19:10 Eos # (Auto) 0.3 K/uL (0.0-0.7) 01/04/19 19:10 Baso # (Auto) 0.1 K/uL (0.0-0.2) 01/04/19 19:10 PT 11.7 Seconds (9.8-13.1) 01/04/19 19:10 INR 1.0 01/04/19 19:10 APTT 36.0 Seconds (25.6-37.1) 01/04/19 19:10 D-Dimer, Quantitative < 200 ng/mlDDU (0-230) 01/06/19 10:20 pO2 18 mm/Hg (30-55) L 01/04/19 19:05 VBG pH 7.33 (7.32-7.43) 01/04/19 19:05 VBG pCO2 46 mmHg (40-60) 01/04/19 19:05 VBG HCO3 22.0 mmol/L 01/04/19 19:05 VBG Total CO2 25.7 mmol/L (22-28) 01/04/19 19:05 VBG O2 Sat (Calc) 28.5 % (40-65) L 01/04/19 19:05 VBG Base Excess -1.8 mmol/L (0.0-2.0) L 01/04/19 19:05 VBG Potassium 4.3 mmol/L (3.6-5.2) 01/04/19 19:05 Sodium 134.0 mmol/L (132-148) 01/04/19 19:05 Chloride 101.0 mmol/L (98-107) 01/04/19 19:05 Glucose 117 mg/dL (65-105) H 01/04/19 19:05 Lactate 2.2 mmol/L (0.7-2.1) H 01/04/19 19:05 FiO2 21.0 % 01/04/19 19:05 Sodium 134 mmol/l (132-148) 01/07/19 05:30 Potassium 4.0 MMOL/L (3.6-5.0) 01/07/19 05:30 Chloride 99 mmol/L (98-107) 01/07/19 05:30 Carbon Dioxide 26 mmol/L (22-30) 01/07/19 05:30 Anion Gap 13 (10-20) 01/07/19 05:30 BUN 15 mg/dl (7-17) 01/07/19 05:30 Creatinine 0.8 mg/dl (0.7-1.2) 01/07/19 05:30 Est GFR ( Amer) > 60 01/07/19 05:30 Est GFR (Non-Af Amer) > 60 01/07/19 05:30 POC Glucose (mg/dL) 282 mg/dL (65-110) H 01/07/19 11:38 Random Glucose 164 mg/dL (65-105) H 01/07/19 05:30 Calcium 9.4 mg/dL (8.4-10.2) 01/07/19 05:30 Total Bilirubin 0.2 mg/dl (0.2-1.3) 01/04/19 19:10 AST 22 U/L (14-36) 01/04/19 19:10 ALT 31 U/L (9-52) 01/04/19 19:10 Alkaline Phosphatase 92 U/L (38-126) 01/04/19 19:10 Troponin I < 0.0120 ng/mL (0.00-0.120) 01/07/19 01:35 NT-Pro-B Natriuret Pep 457 pg/ml (0-900) 01/06/19 16:03 Total Protein 7.5 G/DL (6.3-8.2) 01/04/19 19:10 Albumin 4.1 g/dL (3.5-5.0) 01/04/19 19:10 Globulin 3.4 gm/dL (2.2-3.9) 01/04/19 19:10 Albumin/Globulin Ratio 1.2 (1.0-2.1) 01/04/19 19:10 Venous Blood Potassium 4.3 mmol/L (3.6-5.2) 01/04/19 19:05 Influenza Typ A,B (EIA) Negative for flu a/b (NEGATIVE) 01/07/19 12:14 - Hospital Course Hospital Course: 63 y/o F with a PMHx of HIV, DM2, HLD, PAD, peripheral neuropathy and Hodgkins Lymphoma was admitted for evaluation and management of partial R popliteal DVT and intractable Left leg pain. US Doppler showed nonocclusive eccentric thrombus in the right popliteal vein. Possible chronic venous thrombus. Patient placed on lovenox therapeutic dose and transitioned to Eliquis. pt complains of severe pain on her left LE, previous hx of SFA stenosis , hx of [place] angioplasty on 08/2018. Vascular Surgery consulted Dr Bolaños repeat CTA. Pain management. Admission complicated by GITA that resolved with IVF. D-dimer: <200. --CTA 01/06/18: mild plaque in the abdominal aorta without significant stenosis. Right lower extremity shows SFA with severe stenosis at the origin and multiple areas of moderate to severe stenosis throughout the mid and distal segements, sever stenosis of the popliteal artery, stenosis of the peroneal artery at the mid and distal segments. Left lower extremity shows SFA has been previously stented and has mild to severe disease in stent stenosis. Distal SFA is moderately stenotic. There is moderate stenosis of popliteal artery. Anterior tibial artery is occluded after the proximal segment. Peroneal artery is occluded in the proximal segment with brief mid segment reconstitution then occludes again. -Patient likely will need catheterization of bilateral lower extremities due to severe PAD, instructed to f/u with Dr Bolaños as outpatient. F/u with PCP in 2-3 days. -PT consulted- rec use Rolling walker. -Patient stable at discharge time. Discharge Exam - Head Exam Head Exam: NORMAL INSPECTION - Eye Exam Eye Exam: EOMI, PERRL - Respiratory Exam Respiratory Exam: Clear to PA & Lateral, NORMAL BREATHING PATTERN - Cardiovascular Exam Cardiovascular Exam: REGULAR RHYTHM, +S1, +S2 - GI/Abdominal Exam GI & Abdominal Exam: Normal Bowel Sounds, Soft. absent: Tenderness - Extremities Exam Additional comments: L leg very tender to touch, no edema appreciated, DP/PT no appreciated due to very exquisite pain at touch - Neurological Exam Neurological exam: Alert, Oriented x3 - Skin Skin Exam: Dry, Warm Discharge Plan - Discharge Medications Prescriptions: Apixaban [Eliquis] 10 mg PO Q12H #120 tab oxyCODONE/Acetaminophen [Percocet 5/325 mg Tab] 1 tab PO Q4 PRN #20 tab PRN Reason: Pain, Moderate (4-7) - Follow Up Plan Condition: FAIR Disposition: HOME/ ROUTINE Instructions: Deep Vein Thrombosis (Blood Clots in the Legs) (DC), Apixaban Additional Instructions: hacer shilpi con holguin primario dentro de 1 semana suzette medicamento Eloquis kelsea indicado central visiting nurse [phone] Referrals: Jose Alberto Bolaños MD [Staff Provider] - Solange Gonzalez MD [Family Provider] - <Fuentes Simpson - Last Filed: 01/07/19 15:04> Provider - Provider Date of Admission: 01/04/19 21:14 Attending physician: Ozzy Mendieta MD Consults: 01/06/19 10:34 Cardiology Consult Routine Comment: Consulting Provider: Jose Alberto Bolaños Consulting Physician: Jose Alberto Bolaños Reason for Consult: h/o PAD, LLE pain Hospital Course - Lab Results Lab Results: Most Recent Lab Values WBC 8.4 K/uL (4.8-10.8) 01/07/19 05:30 RBC 3.17 Mil/uL (3.80-5.20) L 01/07/19 05:30 Hgb 9.5 g/dL (12.0-16.0) L 01/07/19 05:30 Hct 27.1 % (34.0-47.0) L 01/07/19 05:30 MCV 85.5 fl (81.0-99.0) 01/07/19 05:30 MCH 30.0 pg (27.0-31.0) 01/07/19 05:30 MCHC 35.1 g/dL (33.0-37.0) 01/07/19 05:30 RDW 14.1 % (11.5-14.5) 01/07/19 05:30 Plt Count 346 K/uL (130-400) 01/07/19 05:30 MPV 7.4 fl (7.2-11.7) 01/04/19 19:10 Neut % (Auto) 59.2 % (50.0-75.0) 01/04/19 19:10 Lymph % (Auto) 30.0 % (20.0-40.0) 01/04/19 19:10 [place] % (Auto) 8.0 % (0.0-10.0) 01/04/19 19:10 Eos % (Auto) 2.3 % (0.0-4.0) 01/04/19 19:10 Baso % (Auto) 0.5 % (0.0-2.0) 01/04/19 19:10 Neut # (Auto) 6.8 K/uL (1.8-7.0) 01/04/19 19:10 Lymph # (Auto) 3.4 K/uL (1.0-4.3) 01/04/19 19:10 [place] # (Auto) 0.9 K/uL (0.0-0.8) H 01/04/19 19:10 Eos # (Auto) 0.3 K/uL (0.0-0.7) 01/04/19 19:10 Baso # (Auto) 0.1 K/uL (0.0-0.2) 01/04/19 19:10 PT 11.7 Seconds (9.8-13.1) 01/04/19 19:10 INR 1.0 01/04/19 19:10 APTT 36.0 Seconds (25.6-37.1) 01/04/19 19:10 D-Dimer, Quantitative < 200 ng/mlDDU (0-230) 01/06/19 10:20 pO2 18 mm/Hg (30-55) L 01/04/19 19:05 VBG pH 7.33 (7.32-7.43) 01/04/19 19:05 VBG pCO2 46 mmHg (40-60) 01/04/19 19:05 VBG HCO3 22.0 mmol/L 01/04/19 19:05 VBG Total CO2 25.7 mmol/L (22-28) 01/04/19 19:05 VBG O2 Sat (Calc) 28.5 % (40-65) L 01/04/19 19:05 VBG Base Excess -1.8 mmol/L (0.0-2.0) L 01/04/19 19:05 VBG Potassium 4.3 mmol/L (3.6-5.2) 01/04/19 19:05 Sodium 134.0 mmol/L (132-148) 01/04/19 19:05 Chloride 101.0 mmol/L (98-107) 01/04/19 19:05 Glucose 117 mg/dL (65-105) H 01/04/19 19:05 Lactate 2.2 mmol/L (0.7-2.1) H 01/04/19 19:05 FiO2 21.0 % 01/04/19 19:05 Sodium 134 mmol/l (132-148) 01/07/19 05:30 Potassium 4.0 MMOL/L (3.6-5.0) 01/07/19 05:30 Chloride 99 mmol/L (98-107) 01/07/19 05:30 Carbon Dioxide 26 mmol/L (22-30) 01/07/19 05:30 Anion Gap 13 (10-20) 01/07/19 05:30 BUN 15 mg/dl (7-17) 01/07/19 05:30 Creatinine 0.8 mg/dl (0.7-1.2) 01/07/19 05:30 Est GFR ( Amer) > 60 01/07/19 05:30 Est GFR (Non-Af Amer) > 60 01/07/19 05:30 POC Glucose (mg/dL) 282 mg/dL (65-110) H 01/07/19 11:38 Random Glucose 164 mg/dL (65-105) H 01/07/19 05:30 Calcium 9.4 mg/dL (8.4-10.2) 01/07/19 05:30 Total Bilirubin 0.2 mg/dl (0.2-1.3) 01/04/19 19:10 AST 22 U/L (14-36) 01/04/19 19:10 ALT 31 U/L (9-52) 01/04/19 19:10 Alkaline Phosphatase 92 U/L (38-126) 01/04/19 19:10 Troponin I < 0.0120 ng/mL (0.00-0.120) 01/07/19 01:35 NT-Pro-B Natriuret Pep 457 pg/ml (0-900) 01/06/19 16:03 Total Protein 7.5 G/DL (6.3-8.2) 01/04/19 19:10 Albumin 4.1 g/dL (3.5-5.0) 01/04/19 19:10 Globulin 3.4 gm/dL (2.2-3.9) 01/04/19 19:10 Albumin/Globulin Ratio 1.2 (1.0-2.1) 01/04/19 19:10 Venous Blood Potassium 4.3 mmol/L (3.6-5.2) 01/04/19 19:05 Urine Color Yellow (YELLOW) 01/07/19 12:25 Urine Clarity Clear (Clear) 01/07/19 12:25 Urine pH 7.0 (5.0-8.0) 01/07/19 12:25 Ur Specific [place] 1.012 (1.003-1.030) 01/07/19 12:25 Urine Protein Negative mg/dL (NEGATIVE) 01/07/19 12:25 Urine Glucose (UA) 150 mg/dL (NEGATIVE) 01/07/19 12:25 Urine Ketones Negative mg/dL (NEGATIVE) 01/07/19 12:25 Urine Blood Negative (NEGATIVE) 01/07/19 12:25 Urine Nitrate Negative (NEGATIVE) 01/07/19 12:25 Urine Bilirubin Negative (NEGATIVE) 01/07/19 12:25 Urine Urobilinogen 0.2-1.0 mg/dL (0.2-1.0) 01/07/19 12:25 Ur Leukocyte Esterase Neg [place]/uL (Negative) 01/07/19 12:25 Urine RBC (Auto) 3 /hpf (0-3) 01/07/19 12:25 Urine Microscopic WBC 1 /hpf (0-5) 01/07/19 12:25 Ur Squamous Epith Cells < 1 /hpf (0-5) 01/07/19 12:25 Urine Bacteria Occ (<OCC) H 01/07/19 12:25 Influenza Typ A,B (EIA) Negative for flu a/b (NEGATIVE) 01/07/19 12:14 Attending/Attestation - Attestation I have personally seen and examined this patient.: Yes I have fully participated in the care of the patient.: Yes I have reviewed all pertinent clinical information, including history, physical exam and plan: Yes Notes (Text): 01/07/19 15:03 Patient seen and examined with resident. Case discussed and agreed with assessment. Patient discharged in stable condition.
[2019-01-07 14:02] LABS: SQUAMOUS EPITHIAL < 1 /hpf (0-5); URINE BACTERIA OCC (<OCC); URINE BILIRUBIN NEGATIVE (NEGATIVE); URINE BLOOD NEGATIVE (NEGATIVE); URINE CLARITY CLEAR (Clear); URINE COLOR YELLOW (YELLOW); URINE GLUCOSE (UA) 150 mg/dL (NEGATIVE); URINE LEUKOCYTE ESTERASE NEG Leu/uL (Negative); URINE PROTEIN NEGATIVE (NEGATIVE); URINE UROBILINOGEN 0.2-1.0 mg/dL (0.2-1.0)
[2019-01-07] MEDS ORDERED: Docusate-Senna 50 mg-8.6 mg Tab PO SCH (22:00)
== END 2019-01-07 15:29 | disposition home or self-care (01) | DRG 543 ==
LOC: H.ER 17:49 → OBSVTOIN 21:14 → H.ERHOLD 21:14 → H.MEDSURG1 22:10
PROVIDERS: ADMIT Internal Medicine; ATTEND Internal Medicine
PROC: B42HZZZ Computerized Tomography (CT Scan) of Bilateral Lower Extremity Arteries (ICD-10-PCS; principal; 2019-01-06)
DX: I82.431 Acute embolism and thrombosis of right popliteal vein (principal); N17.9 Acute kidney failure, unspecified; J43.9 Emphysema, unspecified; L03.90 Cellulitis, unspecified; E11.42 Type 2 diabetes mellitus with diabetic polyneuropathy; E11.65 Type 2 diabetes mellitus with hyperglycemia; I70.201 Unspecified atherosclerosis of native arteries of extremities, right leg; J45.20 Mild intermittent asthma, uncomplicated; Z79.4 Long term (current) use of insulin; Z91.81 History of falling; Z79.82 Long term (current) use of aspirin; Z80.8 Family history of malignant neoplasm of other organs or systems; Z82.5 Family history of asthma and other chronic lower respiratory diseases; Z83.3 Family history of diabetes mellitus; Z85.71 Personal history of Hodgkin lymphoma; Z87.01 Personal history of pneumonia (recurrent); Z87.442 Personal history of urinary calculi; D64.9 Anemia, unspecified; F32.9 Major depressive disorder, single episode, unspecified; F41.9 Anxiety disorder, unspecified; H26.9 Unspecified cataract; Z79.84 Long term (current) use of oral hypoglycemic drugs; Z79.899 Other long term (current) drug therapy; Z21 Asymptomatic human immunodeficiency virus [HIV] infection status; D63.8 Anemia in other chronic diseases classified elsewhere; E78.00 Pure hypercholesterolemia, unspecified; E78.5 Hyperlipidemia, unspecified; F17.200 Nicotine dependence, unspecified, uncomplicated; G89.29 Other chronic pain; I10 Essential (primary) hypertension

== ENCOUNTER 2019-01-11 13:07 | Inpatient (IN) | payer MEDICAID ==
[2019-01-11 13:08] VITALS: BMI 28.9
[2019-01-11 14:27] LABS: BASO # 0.1 K/uL (0.0-0.2); BASO % 0.7 % (0.0-2.0); EOS # 0.4 K/uL (0.0-0.7); EOS % 3.5 % (0.0-4.0); HEMOGLOBIN 10.7 g/dL (12.0-16.0); LYMPH # 2.4 K/uL (1.0-4.3); LYMPH % 22.8 % (20.0-40.0); MEAN CELL VOLUME 86.6 fl (81.0-99.0); MEAN CORPUSCULAR HEMOGLOBIN 29.6 pg (27.0-31.0); MEAN CORPUSCULAR HGB CONC 34.1 g/dL (33.0-37.0); MEAN PLATELET VOLUME 7.3 fl (7.2-11.7); MONO # 0.7 K/uL (0.0-0.8); MONO % 6.6 % (0.0-10.0); NEUT # 7.1 K/uL (1.8-7.0); NEUT % 66.4 % (50.0-75.0); NRBC % 0.1 % (0.0-0.0); RBC 3.63 Mil/uL (3.80-5.20); RED CELL DISTRIBUTION WIDTH 14.3 % (11.5-14.5); WHITE BLOOD COUNT 10.6 K/uL (4.8-10.8)
[2019-01-11 14:47] LABS: INR 1.4; PROTHROMBIN TIME 16.3 Seconds (9.8-13.1)
--- NOTE | 2019-01-11 14:48 | ED PDOC ---
Lower Extremity Pain/Injury Time Seen by Provider: 01/11/19 13:28 Chief Complaint (Nursing): Lower Extremity Problem/Injury Chief Complaint (Provider): Left foot pain History Per: Patient History/Exam Limitations: no limitations Pain Scale Rating Of: 10 Additional History Per: Patient, Prior Records Additional Complaint(s): 63yo female with extensive past medical history including COPD, asthma, kidney stones, anemia, DVT, here in ER due to worsening left foot pain and redness. Patient was recently hospitalized due to a left leg DVT and takes eliquis daily; patient was sent to ER by visiting nurse as well as his PMD Dr. Gonzalez. Patient states the pain ia 07/28, has been taking percocets with no relief of pain. She also denies any trauma or injury to her left leg and foot. No additional complaints. PMD: Dr. Gonzalez Past Medical History Reviewed: Historical Data, Nursing Documentation, Vital Signs Vital Signs: Last Vital Signs Temp 97.2 F L 01/11/19 13:19 Pulse 108 H 01/11/19 13:19 Resp 16 01/11/19 13:19 BP 140/67 01/11/19 13:19 Pulse Ox 99 01/11/19 13:19 - Medical History PMH: Anemia, Anxiety, Asthma, COPD (Emphysema,), Depression, Diabetes, Deep Vein Thrombosis, Emphysema, Gall Bladder Disease, HIV (levels undetectable), Hypercholesterolemia, Kidney Stones (40 YRS AGO), Pneumonia (DECEMBER 2013 I NTUBATED) Denies: Chronic Kidney Disease - Surgical History Surgical History: Cholecystectomy, Endoscopy - Family History Family History: States: Unknown Family Hx - Immunization History Hx Tetanus Toxoid Vaccination: Yes Hx Influenza Vaccination: Yes Hx Pneumococcal Vaccination: Yes - Home Medications Home Medications: Ambulatory Orders Medication Instructions Recorded Atorvastatin Calcium 20 mg PO QPM 01/10/18 GlipiZIDE [Glucotrol] 5 mg PO BID tab 01/14/18 Albuterol HFA [Ventolin HFA 90 2 puff IH Q6 PRN 07/08/18 mcg/actuation (8 g)] MetFORMIN [glucoPHAGE] 1,000 mg PO BID 07/08/18 Pantoprazole [Protonix EC Tab] 40 mg PO DAILY 07/08/18 Alogliptin Benzoate [Alogliptin] 25 mg PO DAILY 09/13/18 Dolutegravir Sodium [Tivicay] 50 mg PO DAILY #0 11/26/18 Trazodone HCl 150 mg PO HS 09/13/18 Darunavir [Prezista] 800 mg PO DAILY 10/02/18 Sertraline HCl 50 mg PO DAILY 10/02/18 Albuterol 0.083% [Albuterol 0.083% 3 ml IH Q6 PRN 12/01/18 Inhal Jammie (2.5 mg/3 ml) UD] Gabapentin [Neurontin] 400 mg PO Q8 12/01/18 Ritonavir [Norvir] 100 mg PO DAILY 12/01/18 Tenofovir [Viread] 300 mg PO DAILY 12/01/18 oxyCODONE/Acetaminophen [Percocet 1 tab PO Q4 PRN #20 tab 01/07/19 5/325 mg Tab] Apixaban [Eliquis] 5 mg PO Q12H 01/11/19 Multivitamin [Multi-Vitamin Daily] 1 tab PO DAILY 01/11/19 Wendel-3 Fatty Acids/Fish Oil [Fish 2 cap PO BID 01/11/19 Oil 1,000 mg Capsule] - Allergies Allergies/Adverse Reactions: Allergies Allergy/AdvReac Type Severity Reaction Status Date / Time No Known Allergies Allergy Verified 01/04/19 18:03 Review of Systems ROS Statement: Except As Marked, All Systems Reviewed And Found Negative Constitutional: Negative for: Fever, Chills Cardiovascular: Negative for: Chest Pain Musculoskeletal: Positive for: Foot Pain (left) Skin: Positive for: Other (worsening redness to left foot) Physical Exam - Reviewed Nursing Documentation Reviewed: Yes Vital Signs Reviewed: Yes - Physical Exam Appears: Positive for: Non-toxic Skin: Positive for: Normal Color Cardiovascular/Chest: Negative for: Tachycardia Respiratory: Negative for: Respiratory Distress Pulses-Dorsalis Pedis (L): 1+ Pulses-Post. Tibialis (L): 1+ Extremity: Positive for: Normal ROM, Tenderness (erythema and tenderness to dorsum of left foot), Calf Tenderness (tenderness along left calf and anterior left leg), Other (L foot cool but no mottling, erythema poor cap refill toes, no npalpable DP pulse). Negative for: Deformity Neurological/Psych: Positive for: Awake, Alert. Negative for: Motor/Sensory Deficits - Laboratory Results Result Diagrams: 01/14/19 04:35 01/14/19 04:35 - ECG O2 Sat by Pulse Oximetry: 99 (RA) Pulse Ox Interpretation: Normal Medical Decision Making Medical Decision [place] female with acute on chronic left lower extremity pain Concern for peripheral artery disease vs. ischemia Will consult podiatry Patient given Morphine 4mg IV for pain management. 1500 XR Left foot FINDINGS: BONES: Normal. No fracture. JOINTS: Normal. SOFT TISSUES: Normal. OTHER FINDINGS: None. IMPRESSION: Normal left foot radiographs. 1700 Patient in persistent pain, IV Morphine 4mg given [address] Simpson, who will admit patient to his service. [address] Bolaños, who states he will review imaging and if needed, possible intervention tomorrow. --------- -------- Scribe Attestation: Documented by Micaela Maldonado, acting as a scribe for [place] Cid DO Provider Scribe Attestation: All medical record entries made by the Scribe were at my direction and personally dictated by me. I have reviewed the chart and agree that the record accurately reflects my personal performance of the history, physical exam, medical decision making, and the department course for this patient. I have also personally directed, reviewed, and agree with the discharge instructions and disposition. Disposition - Clinical Impression Clinical Impression: Limb ischemia - Patient ED Disposition Is Patient to be Admitted: Yes - Disposition Disposition Time: 15:30 Condition: FAIR - Pt Status Changed To: Hospital Disposition Of: Inpatient - Admit Certification Admit to Inpatient:: After my assessment, the patient will require hospitalization for at least two midnights. This is because of the severity of symptoms shown, intensity of services needed, and/or the medical risk in this patient being treated as an outpatient.
[2019-01-11 14:49] LABS: PARTIAL THROMBOPLASTIN TIME 42.8 Seconds (25.6-37.1)
[2019-01-11 14:54] LABS: ALB/GLOB RATIO 1.2 (1.0-2.1); ALBUMIN 4.4 g/dL (3.5-5.0); ALT/SGPT 23 U/L (9-52); AST/SGOT 21 U/L (14-36); BLOOD UREA NITROGEN 15 mg/dl (7-17); GFR NON-AFRICAN AMERICAN > 60
--- NOTE | 2019-01-11 14:58 | RAD ---
Date of service: 01/11/2019 PROCEDURE: Left Foot Radiographs. HISTORY: foot pain, hx DVT/PAD COMPARISON: None. TECHNIQUE: 3 views obtained. FINDINGS: BONES: Normal. No fracture. JOINTS: Normal. SOFT TISSUES: Normal. OTHER FINDINGS: None. IMPRESSION: Normal left foot radiographs.
[2019-01-11] MEDS ORDERED: Oxycodone/Acetaminophen 5/325 mg Tab PO PRN (18:21)
[2019-01-11] MEDS ORDERED: Albuterol 0.083% Inhal Sol (2.5 mg/3 mL) UD IH PRN (18:21)
[2019-01-11] MEDS ORDERED: Albuterol HFA 90 mcg/actuation (8 g) IH PRN (18:21)
--- NOTE | 2019-01-11 18:29 | CP.PCM.HP ---
<Malachi Al - Last Filed: 01/11/19 19:44> History of Present Illness - History of Present Illness History of Present Illness: 63 y/o F with a PMHx of HIV, DM2, chronic LLE pain due to PAD, peripheral neuropathy presented to ED complaining of intolerable L lower leg pain. Pain is sharp/stabbing, 10/10 intensity, constant, and associated with a painful fullness sensation on L plantar foot area. Pt reports the skin is becoming darker and darker. No recent trauma reported. Pt denies fever, chills, headache, chest pain, SOB, palpitations, N/V/D. --Pt has Hx of 3 stents placed due to PAD. --Pt was recently discharged from hospital after treatment of RLE DVT and being evaluated by specialist. --CTA 01/06/18: mild plaque in the abdominal aorta without significant stenosis. RLE shows SFA with severe stenosis at the origin and multiple areas of moderate to severe stenosis throughout the mid and distal segments, sever stenosis of the popliteal artery, stenosis of the peroneal artery at the mid and distal segments. LLE shows: SFA has been previously stented and has mild to severe disease in stent stenosis. Distal SFA is moderately stenotic. Moderate stenosis of popliteal artery. Anterior tibial artery is occluded after the proximal segment. Peroneal artery is occluded in the proximal segment with brief mid segment reconstitution then occludes again. PMD: Dr. Solange Gonzalez NKDA Meds as per EMR -Pmhx: HIV+, DM2, Hodgkin's Lymphoma (diagnosed 3 years ago, treated), Asthma, polyneuropathy, PAD -SurgHx: Cholecystectomy. Tubal ligation. Left extremity angiogram and revascularization, stent placement x3 in 2018. Bladder surgery -Famhx: Mother had throat cancer, DM, asthma -Socialhx: Former smoker of 1.5ppd x 37 years, quit 12 years ago. Former Cocain user. Denies Etoh use. Single, has 4 kids. ED Course: --IV Morphine 4mg x2 were administered. Present on Admission - Present on Admission Any Indicators Present on Admission: No Review of Systems - Constitutional Constitutional: absent: Anorexia, Chills, Fever - EENT Nose/Mouth/Throat: absent: Nasal Congestion, Dysphagia, Sore Throat, Neck Pain - Cardiovascular Cardiovascular: absent: Chest Pain, Dyspnea, Palpitations, Pedal Edema - Respiratory Respiratory: absent: Cough, Dyspnea - Gastrointestinal Gastrointestinal: absent: Abdominal Pain, Constipation, Diarrhea, Nausea, Vomiting - Genitourinary Genitourinary: absent: Dysuria, Flank Pain, Urinary Incontinence, Urinary Frequency - Musculoskeletal Musculoskeletal: absent: Stiffness Additional comments: Positive for left lower leg pain Past Patient History - Infectious Disease Hx of Infectious Diseases: None - Past Medical History & Family History Past Medical History?: Yes - Past Social History Smoking Status: Former Smoker - CARDIAC Hx Hypercholesterolemia: Yes - PULMONARY Hx Asthma: Yes Hx Chronic Obstructive Pulmonary Disease (COPD): Yes (Emphysema,) Hx Emphysema: Yes Hx Pneumonia: Yes (DECEMBER 2013 INTUBATED) - NEUROLOGICAL Hx Neurological Disorder: No - HEENT Hx HEENT Problems: Yes Hx Cataracts: Yes - RENAL Hx Chronic Kidney Disease: No Hx Kidney Stones: Yes (40 YRS AGO) - ENDOCRINE/METABOLIC Hx Endocrine Disorders: Yes Hx Diabetes Mellitus Type 2: Yes - HEMATOLOGICAL/ONCOLOGICAL Hx Anemia: Yes Hx Human Immunodeficiency Virus (HIV): Yes (levels undetectable) - INTEGUMENTARY Hx Dermatological Problems: Yes Hx Cellulitis: Yes - MUSCULOSKELETAL/RHEUMATOLOGICAL Hx Musculoskeletal Disorders: No Hx Falls: No - GASTROINTESTINAL Hx Gall Bladder Disease: Yes - GENITOURINARY/GYNECOLOGICAL Hx Genitourinary Disorders: Yes Other/Comment: BLADDER LIFT AND SURGERY prolapsed again - PSYCHIATRIC Hx Anxiety: Yes Hx Depression: Yes - SURGICAL HISTORY Hx Cholecystectomy: Yes - ANESTHESIA Hx Anesthesia: Yes Hx Anesthesia Reactions: No Hx Malignant Hyperthermia: No Meds Allergies/Adverse Reactions: Allergies Allergy/AdvReac Type Severity Reaction Status Date / Time No Known Allergies Allergy Verified 01/04/19 18:03 Physical Exam - Constitutional Appears: No Acute Distress - Head Exam Head Exam: ATRAUMATIC, NORMOCEPHALIC - Eye Exam Eye Exam: EOMI, Normal appearance - ENT Exam ENT Exam: Mucous Membranes Moist - Neck Exam Neck exam: Positive for: Full Rom, Normal Inspection. Negative for: Meningismus - Respiratory Exam Respiratory Exam: NORMAL BREATHING PATTERN - Cardiovascular Exam Cardiovascular Exam: REGULAR RHYTHM, +S1, +S2 - GI/Abdominal Exam GI & Abdominal Exam: Soft. absent: Distended, Guarding, Rebound, Rigid, Tenderness - Extremities Exam Additional comments: LLE: Hyperpigmentation of dorsum of foot only, decreased ROM on last 4 toes, tenderness with slight touch over dorsal and plantar areas of foot, unable to examine pulse due to tenderness and pain. No open wounds observed. - Neurological Exam Neurological exam: Alert, Oriented x3 Results - Vital Signs Recent Vital Signs: Last Vital Signs Temp 97.2 F L 01/11/19 13:19 Pulse 96 H 01/11/19 17:14 Resp 20 01/11/19 17:14 BP 129/55 L 01/11/19 17:14 Pulse Ox 99 01/11/19 17:59 - Labs Result Diagrams: 01/11/19 14:20 01/11/19 14:20 Labs: Laboratory Results - last 24 hr 01/11/19 01/11/19 01/11/19 14:20 14:20 14:20 WBC 10.6 RBC 3.63 L Hgb 10.7 L Hct 31.4 L MCV 86.6 MCH 29.6 MCHC 34.1 RDW 14.3 Plt Count 455 H D MPV 7.3 Neut % (Auto) 66.4 Lymph % (Auto) 22.8 [place] % (Auto) 6.6 Eos % (Auto) 3.5 Baso % (Auto) 0.7 Neut # (Auto) 7.1 H Lymph # (Auto) 2.4 [place] # (Auto) 0.7 Eos # (Auto) 0.4 Baso # (Auto) 0.1 PT 16.3 H INR 1.4 APTT 42.8 H Sodium 135 Potassium 4.5 Chloride 98 Carbon Dioxide 26 Anion Gap 16 BUN 15 Creatinine 0.8 Est GFR ( Amer) > 60 Est GFR (Non-Af Amer) > 60 Random Glucose 267 H Calcium 10.0 Magnesium 1.6 Total Bilirubin 0.3 AST 21 ALT 23 Alkaline Phosphatase 103 Total Protein 8.1 Albumin 4.4 Globulin 3.7 Albumin/Globulin Ratio 1.2 Assessment & Plan - Assessment and Plan (Free Text) Assessment: 63 y/o F with a PMHx of HIV, DM2, HLD, PAD, peripheral neuropathy and Hodgkins Lymphoma was admitted for evaluation and management of --CTA 01/06/18: mild plaque in the abdominal aorta without significant stenosis. RLE shows SFA with severe stenosis at the origin and multiple areas of moderate to severe stenosis throughout the mid and distal segments, sever stenosis of the popliteal artery, stenosis of the peroneal artery at the mid and distal segmen ts. LLE shows: SFA has been previously stented and has mild to severe disease in stent stenosis. Distal SFA is moderately stenotic. Moderate stenosis of popliteal artery. Anterior tibial artery is occluded after the proximal segment. Peroneal artery is occluded in the proximal segment with brief mid segment reconstitution then occludes again. PLAN: >Intractable Left Leg Pain --Chronic, Hx of PAD and stent placement, likely needs re-catheterization in LLE. --Pain management ordered: Tramadol for mild, Percocet for moderate and for severe. --Vascular Surgery consult, Dr Bolaños --F/U specialist recommendations. >PAD --Chronic --Hx of [place] angioplasty on 08/2018. --Home meds resumed >DVT of R popliteal vein --Diagnosed last week. --On Eliquis 5mg BID. >HIV, asymptomatic --controlled --Last CD4 908 on 10/27/18, --Viral load undetectable. --Home meds resumed >DM2 --Chronic --Home meds resumed --ISS and hypoglycemia protocol >Mild intermittent Asthma --Chronic, controlled --Home meds resumed. Case discussed with Dr Calvin Al PGY-2. <Fuentes Simpson - Last Filed: 01/11/19 19:59> Results - Vital Signs Recent Vital Signs: Last Vital Signs Temp 97.2 F L 01/11/19 13:19 Pulse 78 01/11/19 18:52 Resp 20 01/11/19 18:52 BP 125/85 01/11/19 18:52 Pulse Ox 98 01/11/19 18:52 - Labs Result Diagrams: 01/11/19 14:20 01/11/19 14:20 Labs: Laboratory Results - last 24 hr 01/11/19 01/11/19 01/11/19 14:20 14:20 14:20 WBC 10.6 RBC 3.63 L Hgb 10.7 L Hct 31.4 L MCV 86.6 MCH 29.6 MCHC 34.1 RDW 14.3 Plt Count 455 H D MPV 7.3 Neut % (Auto) 66.4 Lymph % (Auto) 22.8 [place] % (Auto) 6.6 Eos % (Auto) 3.5 Baso % (Auto) 0.7 Neut # (Auto) 7.1 H Lymph # (Auto) 2.4 [place] # (Auto) 0.7 Eos # (Auto) 0.4 Baso # (Auto) 0.1 PT 16.3 H INR 1.4 APTT 42.8 H Sodium 135 Potassium 4.5 Chloride 98 Carbon Dioxide 26 Anion Gap 16 BUN 15 Creatinine 0.8 Est GFR ( Amer) > 60 Est GFR (Non-Af Amer) > 60 POC Glucose (mg/dL) Random Glucose 267 H Calcium 10.0 Magnesium 1.6 Total Bilirubin 0.3 AST 21 ALT 23 Alkaline Phosphatase 103 Total Protein 8.1 Albumin 4.4 Globulin 3.7 Albumin/Globulin Ratio 1.2 01/11/19 18:47 WBC RBC Hgb Hct MCV MCH MCHC RDW Plt Count MPV Neut % (Auto) Lymph % (Auto) [place] % (Auto) Eos % (Auto) Baso % (Auto) Neut # (Auto) Lymph # (Auto) [place] # (Auto) Eos # (Auto) Baso # (Auto) PT INR APTT Sodium Potassium Chloride Carbon Dioxide Anion Gap BUN Creatinine Est GFR ( Amer) Est GFR (Non-Af Amer) POC Glucose (mg/dL) 234 H Random Glucose Calcium Magnesium Total Bilirubin AST ALT Alkaline Phosphatase Total Protein Albumin Globulin Albumin/Globulin Ratio Attending/Attestation - Attestation I have personally seen and examined this patient.: Yes I have fully participated in the care of the patient.: Yes I have reviewed all pertinent clinical information: Yes Notes (Text): 01/11/19 19:56 Patient seen and examined with resident. Case discussed and agreed with assessment and plan of management. Patient was recently admitted for the same complaint but was sent here from the [facility] because of uncontrolled pain and sensitive to touch left foot.
[2019-01-11] MEDS ORDERED: Glucagon Recombinant 1 mg Inj IM PRN (19:33)
[2019-01-11] MEDS ORDERED: Dextrose 50% SYRINGE Inj (50 ml) IV PRN (19:33)
[2019-01-11] MEDS ORDERED: Morphine 4 MG/ML VIAL ONE (20:33)
[2019-01-11] MEDS ORDERED: Patient's Own Med (Trazodone Hcl [Trazodone Hcl] 150 MG) PO SCH (22:00)
[2019-01-11] MEDS: Insulin Lispro (humaLOG) 100 Units/ml Inj SC SCH (22:16)
[2019-01-11] MEDS: Oxycodone/Acetaminophen 5/325 mg Tab PO PRN (23:50)
[2019-01-12 06:03] LABS: BASO % 0.5 % (0.0-2.0); EOS # 0.3 K/uL (0.0-0.7); EOS % 4.4 % (0.0-4.0); HEMOGLOBIN 10.1 g/dL (12.0-16.0); LYMPH # 2.5 K/uL (1.0-4.3); LYMPH % 32.5 % (20.0-40.0); MEAN CELL VOLUME 85.7 fl (81.0-99.0); MEAN CORPUSCULAR HEMOGLOBIN 30.1 pg (27.0-31.0); MEAN CORPUSCULAR HGB CONC 35.1 g/dL (33.0-37.0); MEAN PLATELET VOLUME 7.5 fl (7.2-11.7); MONO # 0.6 K/uL (0.0-0.8); MONO % 7.3 % (0.0-10.0); NEUT # 4.2 K/uL (1.8-7.0); NEUT % 55.3 % (50.0-75.0); RBC 3.36 Mil/uL (3.80-5.20); RED CELL DISTRIBUTION WIDTH 14.1 % (11.5-14.5); WHITE BLOOD COUNT 7.6 K/uL (4.8-10.8)
[2019-01-12 06:39] LABS: BLOOD UREA NITROGEN 11 mg/dl (7-17); CALCIUM 9.9 mg/dL (8.4-10.2); GFR NON-AFRICAN AMERICAN > 60
[2019-01-12] MEDS: Insulin Lispro (humaLOG) 100 Units/ml Inj SC SCH ×3 (06:57→17:34)
--- NOTE | 2019-01-12 08:24 | CARD ---
APPROVED REPORT Date of service: 01/11/2019 EKG Measurement Heart [id number] <Conclusion> Normal Sinus rhythm Normal ECG
[2019-01-12] MEDS: Omega-3-Acid Ethyl Esters 1 GM Cap PO SCH ×2 (08:42→17:32)
[2019-01-12] MEDS: Pantoprazole 40 mg EC Tab PO SCH (08:44)
[2019-01-12] MEDS: Multivitamin With Minerals Tab PO SCH (08:47)
[2019-01-12] MEDS ORDERED: Pantoprazole 40 mg EC Tab PO SCH (09:00)
[2019-01-12] MEDS ORDERED: RITONAVIR 100 MG PO SCH (09:00)
[2019-01-12] MEDS ORDERED: Patient's Own Med (Multivitamin [Multi-Vitamin Daily] 1 TAB) PO SCH (09:00)
--- NOTE | 2019-01-12 10:08 | CP.PCM.PN ---
<Dano Solis - Last Filed: 01/12/19 10:58> Subjective - Date & Time of Evaluation Date of Evaluation: 01/12/19 Time of Evaluation: 07:00 - Subjective Subjective: Patient seen and examined at bedside. No acute event overnight. Patient report she still have pain on LEFT leg with no improvement , otherwise she denies chest pain, sob, abd pain diarrhea, constipation dysuria or polyuria. Objective - Vital Signs/Intake and Output Vital Signs (last 24 hours): Temp Pulse Resp BP Pulse Ox 97.7 F 88 18 109/68 96 01/12/19 08:00 01/12/19 08:00 01/12/19 08:00 01/12/19 08:00 01/12/19 08:00 - Medications Medications: Current Medications Albuterol (Ventolin Hfa 90 Mcg/Actuation (8 G)) 2 puff IH Q6 PRN PRN Reason: Shortness of Breath Albuterol Sulfate (Albuterol 0.083% Inhal Jammie (2.5 Mg/3 Ml) Ud) 2.5 mg IH RQ6 PRN PRN Reason: Shortness of Breath Apixaban (Eliquis) 5 mg PO Q12H [facility]; Protocol Last Admin: 01/12/19 06:04 Dose: 5 mg Atorvastatin Calcium (Lipitor) 20 mg PO QPM [facility] Darunavir (Prezista) 800 mg PO DAILY [facility]; Protocol Last Admin: 01/12/19 08:43 Dose: 800 mg Dextrose (Dextrose 50% Inj) 0 ml IV STAT PRN; Protocol PRN Reason: Hypoglycemia Protocol Dextrose (Glutose 15) 0 gm PO ONCE PRN; Protocol PRN Reason: Hypoglycemia Protocol Dolutegravir Sodium (Tivicay) 50 mg PO DAILY [facility]; Protocol Gabapentin (Neurontin) 400 mg PO Q8 [facility] Last Admin: 01/12/19 08:43 Dose: 400 mg Glipizide (Glucotrol) 5 mg PO BID [facility] Last Admin: 01/12/19 08:41 Dose: 5 mg Glucagon (Glucagen Diagnostic Kit) 0 mg IM STAT PRN; Protocol PRN Reason: Hypoglycemia Protocol Insulin Human Lispro (Humalog) 0 units SC ACCU-CHECK [facility]; Protocol Last Admin: 01/12/19 06:57 Dose: 3 units Metformin HCl (Glucophage) 1,000 mg PO BID [facility] Morphine Sulfate (Morphine) 4 mg IVP Q4 PRN PRN Reason: Pain, moderate (4-7) Last Admin: 01/12/19 07:04 Dose: 4 mg Multivitamins/Minerals (Therapeutic-M Tab) 1 tab PO DAILY [facility] Last Admin: 01/12/19 08:47 Dose: 1 tab Xgroa-[id number] Ethyl Esters (Lovaza) 2 gm PO BID [facility] Last Admin: 01/12/19 08:42 Dose: 2 gm Oxycodone/Acetaminophen (Percocet 5/325 Mg Tab) 1 tab PO Q4 PRN PRN Reason: Pain, moderate (4-7) Stop: 01/14/19 18:22 Oxycodone/Acetaminophen (Percocet 5/325 Mg Tab) 2 tab PO Q4 PRN PRN Reason: Pain, severe (8-10) Stop: 01/14/19 19:14 Last Admin: 01/11/19 23:50 Dose: 2 tab Pantoprazole Sodium (Protonix Ec Tab) 40 mg PO DAILY [facility] Last Admin: 01/12/19 08:44 Dose: 40 mg Ritonavir (Norvir) 100 mg PO DAILY [facility] Last Admin: 01/12/19 08:43 Dose: 100 mg Sertraline HCl (Zoloft) 50 mg PO DAILY [facility] Last Admin: 01/12/19 08:48 Dose: 50 mg Sitagliptin Phosphate (Januvia) 100 mg PO DAILY [facility] Last Admin: 01/12/19 08:42 Dose: 100 mg Tenofovir Disoproxil Fumarate (Viread) 300 mg PO DAILY [facility]; Protocol Last Admin: 01/12/19 08:47 Dose: 300 mg Tramadol HCl (Ultram) 50 mg PO Q4 PRN PRN Reason: Pain, Mild (1-3) Trazodone HCl (Desyrel) 150 mg PO [facility] Last Admin: 01/11/19 22:18 Dose: 150 mg - Labs Labs: 01/12/19 04:50 01/12/19 04:50 PT 16.3 Seconds (9.8-13.1) H 01/11/19 14:20 INR 1.4 01/11/19 14:20 APTT 42.8 Seconds (25.6-37.1) H 01/11/19 14:20 - Constitutional Appears: Well, Non-toxic, No Acute Distress - Head Exam Head Exam: ATRAUMATIC, NORMAL INSPECTION, NORMOCEPHALIC - Eye Exam Eye Exam: EOMI, Normal appearance, PERRL Pupil Exam: NORMAL ACCOMODATION, PERRL - ENT Exam ENT Exam: Mucous Membranes Moist, Normal Exam - Neck Exam Neck Exam: Full ROM, Normal Inspection - Respiratory Exam Respiratory Exam: Clear to Ausculation Bilateral, NORMAL BREATHING PATTERN - Cardiovascular Exam Cardiovascular Exam: REGULAR RHYTHM, +S1, +S2 - GI/Abdominal Exam GI & Abdominal Exam: Soft, Normal Bowel Sounds - Extremities Exam Additional comments: Pulse LLE not felt on Dorsalis pedis nor popliteal, femoral artery was felt. Darkning of skin noted possible due to severe stonosis and low blood perfusion Intact pulse on RLE - Back Exam Back Exam: NORMAL INSPECTION - Neurological Exam Neurological Exam: Alert, Awake, Oriented x3 - Psychiatric Exam Psychiatric exam: Normal Affect, Normal Mood - Skin Skin Exam: Dry, Intact, Normal Color, Warm Assessment and Plan - Assessment and Plan (Free Text) Assessment: 63 yo female with PMHx of HIV, DM2, HLD, PAD, peripheral neuropathy and Hodgkins Lymphoma was admitted for evaluation and management of --CTA 01/06/18: mild plaque in the abdominal aorta without significant stenosis. RLE shows SFA with severe stenosis at the origin and multiple areas of moderate to severe stenosis throughout the mid and distal segments, sever stenosis of the popliteal artery, stenosis of the peroneal artery at the mid and distal segments. LLE shows: SFA has been previously stented and has mild to severe disease in stent stenosis. Distal SFA is moderately stenotic. Moderate stenosis of popliteal artery. Anterior tibial artery is occluded after the proximal segment. Peroneal artery is occluded in the proximal segment with brief mid segment reconstitution then occludes again. PLAN: Intractable Left Leg Pain LLE Pulse not felt on dorsalis pedis nor popliteal, but it is positive on femoral LLE is darker than RLE Chronic, Hx of PAd and stent placement, will need recatherization in LLE Pain management ordered: Tramadol for mild, Percocet for moderate and for severe. Vascular Surgery consulted, Dr Bolaños F/U specialist recommendations. NPO for now PAD Chronic Hx of [place] angioplasty on 08/2018. Home meds resumed DVT of R popliteal vein Diagnosed last week. On Eliquis 5mg BID. HIV, asymptomatic controlled Last CD4 908 on 10/27/18, Viral load undetectable. Home meds resumed DM2 Chronic DC metformin ISS and hypoglycemia protocol Mild intermittent Asthma Chronic, controlled Home meds resumed. DVT prophylaxis and tx Eliquis <Fuentes Simpson D - Last Filed: 01/12/19 11:59> Objective - Vital Signs/Intake and Output Vital Signs (last 24 hours): Temp Pulse Resp BP Pulse Ox 98.4 F 90 18 100/63 93 L 01/12/19 11:44 01/12/19 11:44 01/12/19 11:44 01/12/19 11:44 01/12/19 11:44 - Medications Medications: Current Medications Albuterol (Ventolin Hfa 90 Mcg/Actuation (8 G)) 2 puff IH Q6 PRN PRN Reason: Shortness of Breath Albuterol Sulfate (Albuterol 0.083% Inhal Jammie (2.5 Mg/3 Ml) Ud) 2.5 mg IH RQ6 PRN PRN Reason: Shortness of Breath Apixaban (Eliquis) 5 mg PO Q12H [facility]; Protocol Last Admin: 01/12/19 06:04 Dose: 5 mg Atorvastatin Calcium (Lipitor) 20 mg PO QPM [facility] Darunavir (Prezista) 800 mg PO DAILY [facility]; Protocol Last Admin: 01/12/19 08:43 Dose: 800 mg Dextrose (Dextrose 50% Inj) 0 ml IV STAT PRN; Protocol PRN Reason: Hypoglycemia Protocol Dextrose (Glutose 15) 0 gm PO ONCE PRN; Protocol PRN Reason: Hypoglycemia Protocol Dolutegravir Sodium (Tivicay) 50 mg PO DAILY [facility]; Protocol Gabapentin (Neurontin) 400 mg PO Q8 [facility] Last Admin: 01/12/19 08:43 Dose: 400 mg Glipizide (Glucotrol) 5 mg PO BID [facility] Last Admin: 01/12/19 08:41 Dose: 5 mg Glucagon (Glucagen Diagnostic Kit) 0 mg IM STAT PRN; Protocol PRN Reason: Hypoglycemia Protocol Insulin Human Lispro (Humalog) 0 units SC ACCU-CHECK [facility]; Protocol Last Admin: 01/12/19 06:57 Dose: 3 units Metformin HCl (Glucophage) 1,000 mg PO BID [facility] Morphine Sulfate (Morphine) 4 mg IVP Q4 PRN PRN Reason: Pain, moderate (4-7) Last Admin: 01/12/19 07:04 Dose: 4 mg Multivitamins/Minerals (Therapeutic-M Tab) 1 tab PO DAILY [facility] Last Admin: 01/12/19 08:47 Dose: 1 tab Jgnfa-2-[id number] Ethyl Esters (Lovaza) 2 gm PO BID [facility] Last Admin: 01/12/19 08:42 Dose: 2 gm Oxycodone/Acetaminophen (Percocet 5/325 Mg Tab) 1 tab PO Q4 PRN PRN Reason: Pain, moderate (4-7) Stop: 01/14/19 18:22 Oxycodone/Acetaminophen (Percocet 5/325 Mg Tab) 2 tab PO Q4 PRN PRN Reason: Pain, severe (8-10) Stop: 01/14/19 19:14 Last Admin: 01/11/19 23:50 Dose: 2 tab Pantoprazole Sodium (Protonix Ec Tab) 40 mg PO DAILY [facility] Last Admin: 01/12/19 08:44 Dose: 40 mg Ritonavir (Norvir) 100 mg PO DAILY [facility] Last Admin: 01/12/19 08:43 Dose: 100 mg Sertraline HCl (Zoloft) 50 mg PO DAILY [facility] Last Admin: 01/12/19 08:48 Dose: 50 mg Sitagliptin Phosphate (Januvia) 100 mg PO DAILY [facility] Last Admin: 01/12/19 08:42 Dose: 100 mg Tenofovir Disoproxil Fumarate (Viread) 300 mg PO DAILY [facility]; Protocol Last Admin: 01/12/19 08:47 Dose: 300 mg Tramadol HCl (Ultram) 50 mg PO Q4 PRN PRN Reason: Pain, Mild (1-3) Trazodone HCl (Desyrel) 150 mg PO HS [facility] Last Admin: 01/11/19 22:18 Dose: 150 mg - Labs Labs: 01/12/19 04:50 01/12/19 04:50 PT 16.3 Seconds (9.8-13.1) H 01/11/19 14:20 INR 1.4 01/11/19 14:20 APTT 42.8 Seconds (25.6-37.1) H 01/11/19 14:20 Attending/Attestation - Attestation I have personally seen and examined this patient.: Yes I have fully participated in the care of the patient.: Yes I have reviewed all pertinent clinical information, including history, physical exam and plan: Yes Notes (Text): 01/12/19 11:58 Patient seen and examined with resident. Case discussed and agreed with assessment. Patient was scheduled for catheterization of the right lower extremity today but was cancelled.
--- NOTE | 2019-01-12 14:16 | CP.PCM.CON ---
<JyotiVladislav - Last Filed: 01/12/19 14:55> History of Present Illness - History of Present Illness History of Present Illness: Vladislav Montes, PGY-1, Cardiology Consult Note for Dr. Bolaños 63 year old female with past medical history of PAD, DM, HLD, HTN, HIV+, asthma, COPD, coma, lymphoma in remission presents with bilateral lower extremity pain worse on the left. Patient reports this pain started 1 year ago. The pain is stabbing, burning, and cramping and nature and has worsened over the past year. Patient reports that pain is worse with walking and pain minimally improved after multiple catheterization procedures where she had stents placed in her left leg. Patient reports her physicians told her that this was due to her uncontrolled diabetes which used to be in the 300s. Patient used to take insulin but now takes metformin and glipizide which have significantly improved her blood glucose level. Patient also reports chest tightness which is on and off. Patient last had it for the past week and stopped Thursday with aspirin, ibuprofen, and percocet. Patient reported that exertion did not worsen the pain. Patient was recently admitted for similar symptoms and CTA of bilateral lower extremities was performed showing mild plaque in the abdominal aorta without significant stenosis. Right lower extremity showed SFA with severe stenosis at the origin and multiple areas of moderate to severe stenosis throughout the mid and distal segments, sever stenosis of the popliteal artery, stenosis of the peroneal artery at the mid and distal segments. Left lower extremity showed SFA has been previously stented and has mild to severe disease in stent stenosis. Distal SFA was moderately stenotic. There was moderate stenosis of popliteal artery. Anterior tibial artery was occluded after the proximal segment. Peroneal artery was occluded in the proximal segment with brief mid segment reconstitution then occludes again. Patient was discharged and told to follow up outpatient with Dr. Bolaños. However, patient's pain was unbearable and was admitted to the hospital. 12-point ROS was unremarkable except for what was mentioned above. PMH: as mentioned above PSH: tubal ligation, bladder life, gallstone removal FMHx: Mother from throat cancer. Father from unknown causes SHx: Smoked 1 PPD for 36 years. Stopped 12 years ago. Patient reports occassional alcohol use in the past. Patient also reports cocaine and marijuana use in the past All: NKDA PMD: Dr. Gonzalez Aircraft Maintenance Technician: none Patient denies previous cardiac catheterizations and stress tests. Patient was found to have previous SFA stent occluded on prior lower extremity catheterization in 08/2018. Review of Systems - Review of Systems Review of Systems: except for what was mentioned in HPI Past Patient History - Infectious Disease Hx of Infectious Diseases: None - Past Medical History & Family History Past Medical History?: Yes - Past Social History Smoking Status: Former Smoker - CARDIAC Hx Hypercholesterolemia: Yes - PULMONARY Hx Asthma: Yes Hx Chronic Obstructive Pulmonary Disease (COPD): Yes (Emphysema,) Hx Emphysema: Yes Hx Pneumonia: Yes (DECEMBER 2013 INTUBATED) - NEUROLOGICAL Hx Neurological Disorder: No - HEENT Hx HEENT Problems: Yes - RENAL Hx Chronic Kidney Disease: No - ENDOCRINE/METABOLIC Hx Endocrine Disorders: Yes Hx Diabetes Mellitus Type 2: Yes - HEMATOLOGICAL/ONCOLOGICAL Hx AIDS: No Hx Anemia: Yes Hx Blood Transfusions: No Hx Cancer: Yes (Lymphoma) Hx Human Immunodeficiency Virus (HIV): Yes (levels undetectable) Other/Comment: DVT - INTEGUMENTARY Hx Dermatological Problems: Yes Hx Cellulitis: Yes - MUSCULOSKELETAL/RHEUMATOLOGICAL Hx Musculoskeletal Disorders: No Hx Falls: Yes - GASTROINTESTINAL Hx Gall Bladder Disease: Yes Hx Gastritis: Yes - GENITOURINARY/GYNECOLOGICAL Hx Genitourinary Disorders: Yes Other/Comment: Bladder Prolapse with mesh - PSYCHIATRIC Hx Anxiety: Yes Hx Depression: Yes Hx Substance Use: No - SURGICAL HISTORY Hx Surgeries: Yes Hx Cholecystectomy: Yes Hx Tubal Ligation: Yes Other/Comment: Cysts (2) removed from brain, Bladder Prolapse Repair, Endoscopy - ANESTHESIA Hx Anesthesia: Yes Hx Anesthesia Reactions: No Hx Malignant Hyperthermia: No Meds Allergies/Adverse Reactions: Allergies Allergy/AdvReac Type Severity Reaction Status Date / Time No Known Allergies Allergy Verified 01/04/19 18:03 - Medications Medications: Current Medications Albuterol (Ventolin Hfa 90 Mcg/Actuation (8 G)) 2 puff IH Q6 PRN PRN Reason: Shortness of Breath Albuterol Sulfate (Albuterol 0.083% Inhal Jammie (2.5 Mg/3 Ml) Ud) 2.5 mg IH RQ6 PRN PRN Reason: Shortness of Breath Apixaban (Eliquis) 5 mg PO Q12H [facility]; Protocol Last Admin: 01/12/19 06:04 Dose: 5 mg Atorvastatin Calcium (Lipitor) 20 mg PO QPM [facility] Darunavir (Prezista) 800 mg PO DAILY [facility]; Protocol Last Admin: 01/12/19 08:43 Dose: 800 mg Dextrose (Dextrose 50% Inj) 0 ml IV STAT PRN; Protocol PRN Reason: Hypoglycemia Protocol Dextrose (Glutose 15) 0 gm PO ONCE PRN; Protocol PRN Reason: Hypoglycemia Protocol Dolutegravir Sodium (Tivicay) 50 mg PO DAILY [facility]; Protocol Gabapentin (Neurontin) 400 mg PO Q8 [facility] Last Admin: 01/12/19 08:43 Dose: 400 mg Glipizide (Glucotrol) 5 mg PO BID [facility] Last Admin: 01/12/19 08:41 Dose: 5 mg Glucagon (Glucagen Diagnostic Kit) 0 mg IM STAT PRN; Protocol PRN Reason: Hypoglycemia Protocol Insulin Human Lispro (Humalog) 0 units SC ACCU-CHECK [facility]; Protocol Last Admin: 01/12/19 13:05 Dose: 4 units Metformin HCl (Glucophage) 1,000 mg PO BID [facility] Morphine Sulfate (Morphine) 4 mg IVP Q4 PRN PRN Reason: Pain, moderate (4-7) Last Admin: 01/12/19 07:04 Dose: 4 mg Multivitamins/Minerals (Therapeutic-M Tab) 1 tab PO DAILY [facility] Last Admin: 01/12/19 08:47 Dose: 1 tab [id number] Ethyl Esters (Lovaza) 2 gm PO BID [facility] Last Admin: 01/12/19 08:42 Dose: 2 gm Oxycodone/Acetaminophen (Percocet 5/325 Mg Tab) 1 tab PO Q4 PRN PRN Reason: Pain, moderate (4-7) Stop: 01/14/19 18:22 Oxycodone/Acetaminophen (Percocet 5/325 Mg Tab) 2 tab PO Q4 PRN PRN Reason: Pain, severe (8-10) Stop: 01/14/19 19:14 Last Admin: 01/11/19 23:50 Dose: 2 tab Pantoprazole Sodium (Protonix Ec Tab) 40 mg PO DAILY [facility] Last Admin: 01/12/19 08:44 Dose: 40 mg Ritonavir (Norvir) 100 mg PO DAILY [facility] Last Admin: 01/12/19 08:43 Dose: 100 mg Sertraline HCl (Zoloft) 50 mg PO DAILY [facility] Last Admin: 01/12/19 08:48 Dose: 50 mg Sitagliptin Phosphate (Januvia) 100 mg PO DAILY [facility] Last Admin: 01/12/19 08:42 Dose: 100 mg Tenofovir Disoproxil Fumarate (Viread) 300 mg PO DAILY [facility]; Protocol Last Admin: 01/12/19 08:47 Dose: 300 mg Tramadol HCl (Ultram) 50 mg PO Q4 PRN PRN Reason: Pain, Mild (1-3) Trazodone HCl (Desyrel) 150 mg PO HS [facility] Last Admin: 01/11/19 22:18 Dose: 150 mg Physical Exam - Constitutional Appears: Well, Non-toxic, In Acute Distress - Head Exam Head Exam: ATRAUMATIC, NORMAL INSPECTION, NORMOCEPHALIC - Eye Exam Eye Exam: EOMI, PERRL - ENT Exam ENT Exam: Mucous Membranes Moist - Respiratory Exam Respiratory Exam: Clear to Auscultation Bilateral, NORMAL BREATHING PATTERN - Cardiovascular Exam Cardiovascular Exam: REGULAR RHYTHM, RRR, +S1, +S2 - GI/Abdominal Exam GI & Abdominal Exam: Normal Bowel Sounds, Soft. absent: Tenderness - Extremities Exam Extremities exam: Positive for: full ROM, normal inspection, tenderness (bilateral lower extremities). Negative for: pedal edema - Neurological Exam Neurological exam: Alert, CN II-XII Intact, Oriented x3 - Skin Skin Exam: Dry, Intact Results - Vital Signs Recent Vital Signs: Last Vital Signs Temp 98.4 F 01/12/19 13:00 Pulse 90 01/12/19 13:00 Resp 18 01/12/19 13:00 BP 100/63 01/12/19 13:00 Pulse Ox 93 L 01/12/19 13:00 - Labs Result Diagrams: 01/12/19 04:50 01/12/19 04:50 Labs: Laboratory Results - last 24 hr 01/11/19 01/11/19 01/11/19 14:20 14:20 14:20 WBC 10.6 RBC 3.63 L Hgb 10.7 L Hct 31.4 L MCV 86.6 MCH 29.6 MCHC 34.1 RDW 14.3 Plt Count 455 H D MPV 7.3 Neut % (Auto) 66.4 Lymph % (Auto) 22.8 [place] % (Auto) 6.6 Eos % (Auto) 3.5 Baso % (Auto) 0.7 Neut # (Auto) 7.1 H Lymph # (Auto) 2.4 [place] # (Auto) 0.7 Eos # (Auto) 0.4 Baso # (Auto) 0.1 PT 16.3 H INR 1.4 APTT 42.8 H Sodium 135 Potassium 4.5 Chloride 98 Carbon Dioxide 26 Anion Gap 16 BUN 15 Creatinine 0.8 Est GFR ( Amer) > 60 Est GFR (Non-Af Amer) > 60 POC Glucose (mg/dL) Random Glucose 267 H Calcium 10.0 Magnesium 1.6 Total Bilirubin 0.3 AST 21 ALT 23 Alkaline Phosphatase 103 Total Protein 8.1 Albumin 4.4 Globulin 3.7 Albumin/Globulin Ratio 1.2 01/11/19 01/11/19 01/12/19 18:47 21:45 04:50 WBC 7.6 RBC 3.36 L Hgb 10.1 L Hct 28.8 L MCV 85.7 MCH 30.1 MCHC 35.1 RDW 14.1 Plt Count 442 H MPV 7.5 Neut % (Auto) 55.3 Lymph % (Auto) 32.5 [place] % (Auto) 7.3 Eos % (Auto) 4.4 H Baso % (Auto) 0.5 Neut # (Auto) 4.2 Lymph # (Auto) 2.5 [place] # (Auto) 0.6 Eos # (Auto) 0.3 Baso # (Auto) 0.0 PT INR APTT Sodium Potassium Chloride Carbon Dioxide Anion Gap BUN Creatinine Est GFR ( Amer) Est GFR (Non-Af Amer) POC Glucose (mg/dL) 234 H 232 H Random Glucose Calcium Magnesium Total Bilirubin AST ALT Alkaline Phosphatase Total Protein Albumin Globulin Albumin/Globulin Ratio 01/12/19 01/12/19 01/12/19 04:50 05:38 10:17 WBC RBC Hgb Hct MCV MCH MCHC RDW Plt Count MPV Neut % (Auto) Lymph % (Auto) [place] % (Auto) Eos % (Auto) Baso % (Auto) Neut # (Auto) Lymph # (Auto) [place] # (Auto) Eos # (Auto) Baso # (Auto) PT INR APTT Sodium 135 Potassium 4.0 Chloride 95 L Carbon Dioxide 29 Anion Gap 15 BUN 11 Creatinine 0.8 Est GFR ( Amer) > 60 Est GFR (Non-Af Amer) > 60 POC Glucose (mg/dL) 275 H 305 H Random Glucose 283 H Calcium 9.9 Magnesium Total Bilirubin AST ALT Alkaline Phosphatase Total Protein Albumin Globulin Albumin/Globulin Ratio Assessment & Plan - Assessment and Plan (Free Text) Assessment: PAD Nonocclusive thrombus in the right popliteal vein Cellulitis HTN HLD DM II COPD Plan: PAD Nonocclusive thrombus in the right popliteal vein Cellulitis HTN HLD DM II COPD Lower extremity ultrasound 01/04/19: nonocclusive eccentric thrombus in the right popliteal vein. Possible chronic venous thrombus. Cannot rule out acute venous thrombosis though appearance is atypical. CTA of bilateral lower extremities 01/06/19: mild plaque in the abdominal aorta without significant stenosis. Right lower extremity shows SFA with severe stenosis at the origin and multiple areas of moderate to severe stenosis throughout the mid and distal segements, sever stenosis of the popliteal artery, stenosis of the peroneal artery at the mid and distal segments. Left lower extremity shows SFA has been previously stented and has mild to severe disease in stent stenosis. Distal SFA is moderately stenotic. There is moderate stenosis of popliteal artery. Anterior tibial artery is occluded after the proximal segment. Peroneal artery is occluded in the proximal segment with brief mid segment reconstitution then occludes again. EKG: NSR with HR: 84 Catheterization of bilateral lower extremities due to severe PAD to be performed either Thursday or Thursday Medications: Apixaban 5 mg Q12 Lipitor 20 mg daily Metformin 1000 mg BID held Lispro Januvia - Date & Time Date: 01/12/19 Time: 14:16 <Jose Alberto Bolaños - Last Filed: 01/12/19 23:21> Meds - Medications Medications: Current Medications Albuterol (Ventolin Hfa 90 Mcg/Actuation (8 G)) 2 puff IH Q6 PRN PRN Reason: Shortness of Breath Albuterol Sulfate (Albuterol 0.083% Inhal Jammie (2.5 Mg/3 Ml) Ud) 2.5 mg IH RQ6 PRN PRN Reason: Shortness of Breath Apixaban (Eliquis) 5 mg PO Q12H [facility]; Protocol Last Admin: 01/12/19 18:46 Dose: 5 mg Atorvastatin Calcium (Lipitor) 20 mg PO QPM [facility] Last Admin: 01/12/19 18:46 Dose: 20 mg Darunavir (Prezista) 800 mg PO DAILY [facility]; Protocol Last Admin: 01/12/19 08:43 Dose: 800 mg Dextrose (Dextrose 50% Inj) 0 ml IV STAT PRN; Protocol PRN Reason: Hypoglycemia Protocol Dextrose (Glutose 15) 0 gm PO ONCE PRN; Protocol PRN Reason: Hypoglycemia Protocol Gabapentin (Neurontin) 400 mg PO Q8 [facility] Last Admin: 01/12/19 17:31 Dose: 400 mg Glipizide (Glucotrol) 5 mg PO BID [facility] Last Admin: 01/12/19 17:31 Dose: 5 mg Glucagon (Glucagen Diagnostic Kit) 0 mg IM STAT PRN; Protocol PRN Reason: Hypoglycemia Protocol Home Med (Patient's Own Medication) 1 unit PO DAILY [facility]; Protocol Last Admin: 01/12/19 17:30 Dose: 1 unit Insulin Human Lispro (Humalog) 0 units SC ACCU-CHECK [facility]; Protocol Last Admin: 01/12/19 17:34 Dose: 5 units Metformin HCl (Glucophage) 1,000 mg PO BID [facility] Morphine Sulfate (Morphine) 4 mg IVP Q4 PRN PRN Reason: Pain, moderate (4-7) Last Admin: 01/12/19 07:04 Dose: 4 mg Multivitamins/Minerals (Therapeutic-M Tab) 1 tab PO DAILY [facility] Last Admin: 01/12/19 08:47 Dose: 1 tab Ikukn-[id number] Ethyl Esters (Lovaza) 2 gm PO BID [facility] Last Admin: 01/12/19 17:32 Dose: 2 gm Oxycodone/Acetaminophen (Percocet 5/325 Mg Tab) 1 tab PO Q4 PRN PRN Reason: Pain, moderate (4-7) Stop: 01/14/19 18:22 Last Admin: 01/12/19 20:47 Dose: 1 tab Oxycodone/Acetaminophen (Percocet 5/325 Mg Tab) 2 tab PO Q4 PRN PRN Reason: Pain, severe (8-10) Stop: 01/14/19 19:14 Last Admin: 01/12/19 14:27 Dose: 2 tab Pantoprazole Sodium (Protonix Ec Tab) 40 mg PO DAILY [facility] Last Admin: 01/12/19 08:44 Dose: 40 mg Ritonavir (Norvir) 100 mg PO DAILY [facility] Last Admin: 01/12/19 08:43 Dose: 100 mg Sertraline HCl (Zoloft) 50 mg PO DAILY [facility] Last Admin: 01/12/19 08:48 Dose: 50 mg Sitagliptin Phosphate (Januvia) 100 mg PO DAILY [facility] Last Admin: 01/12/19 08:42 Dose: 100 mg Tenofovir Disoproxil Fumarate (Viread) 300 mg PO DAILY [facility]; Protocol Last Admin: 01/12/19 08:47 Dose: 300 mg Tramadol HCl (Ultram) 50 mg PO Q4 PRN PRN Reason: Pain, Mild (1-3) Trazodone HCl (Desyrel) 150 mg PO [facility] Last Admin: 01/12/19 21:57 Dose: 150 mg Results - Vital Signs Recent Vital Signs: Last Vital Signs Temp 98.4 F 01/12/19 19:29 Pulse 92 H 01/12/19 19:29 Resp 17 01/12/19 19:29 BP 101/61 01/12/19 19:29 Pulse Ox 94 L 01/12/19 19:29 - Labs Result Diagrams: 01/12/19 04:50 01/12/19 04:50 Labs: Laboratory Results - last 24 hr 01/12/19 01/12/19 01/12/19 04:50 04:50 05:38 WBC 7.6 RBC 3.36 L Hgb 10.1 L Hct 28.8 L MCV 85.7 MCH 30.1 MCHC 35.1 RDW 14.1 Plt Count 442 H MPV 7.5 Neut % (Auto) 55.3 Lymph % (Auto) 32.5 [place] % (Auto) 7.3 Eos % (Auto) 4.4 H Baso % (Auto) 0.5 Neut # (Auto) 4.2 Lymph # (Auto) 2.5 [place] # (Auto) 0.6 Eos # (Auto) 0.3 Baso # (Auto) 0.0 Sodium 135 Potassium 4.0 Chloride 95 L Carbon Dioxide 29 Anion Gap 15 BUN 11 Creatinine 0.8 Est GFR ( Amer) > 60 Est GFR (Non-Af Amer) > 60 POC Glucose (mg/dL) 275 H Random Glucose 283 H Calcium 9.9 01/12/19 01/12/19 01/12/19 10:17 16:07 21:19 WBC RBC Hgb Hct MCV MCH MCHC RDW Plt Count MPV Neut % (Auto) Lymph % (Auto) [place] % (Auto) Eos % (Auto) Baso % (Auto) Neut # (Auto) Lymph # (Auto) [place] # (Auto) Eos # (Auto) Baso # (Auto) Sodium Potassium Chloride Carbon Dioxide Anion Gap BUN Creatinine Est GFR ( Amer) Est GFR (Non-Af Amer) POC Glucose (mg/dL) 305 H 354 H 263 H Random Glucose Calcium Attending/Attestation - Attestation I have personally seen and examined this patient.: Yes I have fully participated in the care of the patient.: Yes I have reviewed all pertinent clinical information: Yes Notes (Text): 01/12/19 23:20 plan for peripheral angiogram cont med rx
[2019-01-12] MEDS: Oxycodone/Acetaminophen 5/325 mg Tab PO PRN (14:27)
[2019-01-12] MEDS: Dolutegravir Sodium 50 mg Tab [Patient's Own Med] PO SCH (17:30)
[2019-01-13] MEDS: Insulin Lispro (humaLOG) 100 Units/ml Inj SC SCH ×5 (00:31→22:30)
[2019-01-13] MEDS: Oxycodone/Acetaminophen 5/325 mg Tab PO PRN ×2 (02:25→19:43)
--- NOTE | 2019-01-13 06:47 | CP.PCM.PN ---
<Dano Solis - Last Filed: 01/13/19 13:17> Subjective - Date & Time of Evaluation Date of Evaluation: 01/13/19 Time of Evaluation: 07:00 - Subjective Subjective: Patient is seen and examined at bedside with no acute distress, patient pain still present but improved, otherwise denies any other complains. Objective - Vital Signs/Intake and Output Vital Signs (last 24 hours): Temp Pulse Resp BP Pulse Ox 98.5 F 81 18 108/62 94 L 01/13/19 04:45 01/13/19 04:45 01/13/19 04:45 01/13/19 04:45 01/13/19 04:45 - Medications Medications: Current Medications Albuterol (Ventolin Hfa 90 Mcg/Actuation (8 G)) 2 puff IH Q6 PRN PRN Reason: Shortness of Breath Albuterol Sulfate (Albuterol 0.083% Inhal Jammie (2.5 Mg/3 Ml) Ud) 2.5 mg IH RQ6 PRN PRN Reason: Shortness of Breath Apixaban (Eliquis) 5 mg PO Q12H [facility]; Protocol Last Admin: 01/13/19 06:09 Dose: 5 mg Atorvastatin Calcium (Lipitor) 20 mg PO QPM [facility] Last Admin: 01/12/19 18:46 Dose: 20 mg Darunavir (Prezista) 800 mg PO DAILY [facility]; Protocol Last Admin: 01/12/19 08:43 Dose: 800 mg Dextrose (Dextrose 50% Inj) 0 ml IV STAT PRN; Protocol PRN Reason: Hypoglycemia Protocol Dextrose (Glutose 15) 0 gm PO ONCE PRN; Protocol PRN Reason: Hypoglycemia Protocol Gabapentin (Neurontin) 400 mg PO Q8 [facility] Last Admin: 01/13/19 00:33 Dose: Not Given Glipizide (Glucotrol) 5 mg PO BID [facility] Last Admin: 01/12/19 17:31 Dose: 5 mg Glucagon (Glucagen Diagnostic Kit) 0 mg IM STAT PRN; Protocol PRN Reason: Hypoglycemia Protocol Home Med (Patient's Own Medication) 1 unit PO DAILY [facility]; Protocol Last Admin: 01/12/19 17:30 Dose: 1 unit Insulin Human Lispro (Humalog) 0 units SC ACCU-CHECK [facility]; Protocol Last Admin: 01/13/19 00:31 Dose: Not Given Metformin HCl (Glucophage) 1,000 mg PO BID [facility] Morphine Sulfate (Morphine) 4 mg IVP Q4 PRN PRN Reason: Pain, moderate (4-7) Last Admin: 01/12/19 07:04 Dose: 4 mg Multivitamins/Minerals (Therapeutic-M Tab) 1 tab PO DAILY [facility] Last Admin: 01/12/19 08:47 Dose: 1 tab [id number] Ethyl Esters (Lovaza) 2 gm PO BID [facility] Last Admin: 01/12/19 17:32 Dose: 2 gm Oxycodone/Acetaminophen (Percocet 5/325 Mg Tab) 1 tab PO Q4 PRN PRN Reason: Pain, moderate (4-7) Stop: 01/14/19 18:22 Last Admin: 01/12/19 20:47 Dose: 1 tab Oxycodone/Acetaminophen (Percocet 5/325 Mg Tab) 2 tab PO Q4 PRN PRN Reason: Pain, severe (8-10) Stop: 01/14/19 19:14 Last Admin: 01/13/19 02:25 Dose: 2 tab Pantoprazole Sodium (Protonix Ec Tab) 40 mg PO DAILY [facility] Last Admin: 01/12/19 08:44 Dose: 40 mg Ritonavir (Norvir) 100 mg PO DAILY [facility] Last Admin: 01/12/19 08:43 Dose: 100 mg Sertraline HCl (Zoloft) 50 mg PO DAILY [facility] Last Admin: 01/12/19 08:48 Dose: 50 mg Sitagliptin Phosphate (Januvia) 100 mg PO DAILY [facility] Last Admin: 01/12/19 08:42 Dose: 100 mg Tenofovir Disoproxil Fumarate (Viread) 300 mg PO DAILY [facility]; Protocol Last Admin: 01/12/19 08:47 Dose: 300 mg Tramadol HCl (Ultram) 50 mg PO Q4 PRN PRN Reason: Pain, Mild (1-3) Trazodone HCl (Desyrel) 150 mg PO [facility] Last Admin: 01/12/19 21:57 Dose: 150 mg - Labs Labs: 01/12/19 04:50 01/12/19 04:50 PT 16.3 Seconds (9.8-13.1) H 01/11/19 14:20 INR 1.4 01/11/19 14:20 APTT 42.8 Seconds (25.6-37.1) H 01/11/19 14:20 - Constitutional Appears: Well, Non-toxic, No Acute Distress - Head Exam Head Exam: ATRAUMATIC, NORMAL INSPECTION, NORMOCEPHALIC - Eye Exam Eye Exam: EOMI, Normal appearance, PERRL Pupil Exam: NORMAL ACCOMODATION, PERRL - ENT Exam ENT Exam: Mucous Membranes Moist, Normal Exam - Neck Exam Neck Exam: Full ROM, Normal Inspection - Respiratory Exam Respiratory Exam: Clear to Ausculation Bilateral, NORMAL BREATHING PATTERN - Cardiovascular Exam Cardiovascular Exam: REGULAR RHYTHM, +S1, +S2 - GI/Abdominal Exam GI & Abdominal Exam: Soft, Normal Bowel Sounds - Extremities Exam Extremities Exam: Full ROM, Normal Capillary Refill, Normal Inspection Additional comments: Pulse LLE not felt on Dorsalis pedis nor popliteal, femoral artery was felt. Darkning of skin noted possible due to severe stonosis and low blood perfusion Intact pulse on RLE - Back Exam Back Exam: NORMAL INSPECTION - Neurological Exam Neurological Exam: Alert, Awake, CN II-XII Intact, Normal Gait, Oriented x3 - Psychiatric Exam Psychiatric exam: Normal Affect, Normal Mood Assessment and Plan - Assessment and Plan (Free Text) Assessment: 63 yo female with PMHx of HIV, DM2, HLD, PAD, peripheral neuropathy and Hodgkins Lymphoma was admitted for evaluation and management of --CTA 01/06/18: mild plaque in the abdominal aorta without significant stenosis. RLE shows SFA with severe stenosis at the origin and multiple areas of moderate to severe stenosis throughout the mid and distal segments, sever stenosis of the popliteal artery, stenosis of the peroneal artery at the mid and distal segments. LLE shows: SFA has been previously stented and has mild to severe disease in stent stenosis. Distal SFA is moderately stenotic. Moderate stenosis of popliteal artery. Anterior tibial artery is occluded after the proximal segment. Peroneal artery is occluded in the proximal segment with brief mid segment reconstitution then occludes again. PLAN: Intractable Left Leg Pain LLE pulse still not palpable; no change LLE is darker than RLE Chronic, Hx of PAd and stent placement, will need recatherization in LLE Pain management ordered: Tramadol for mild, Percocet for moderate and for severe. Vascular Surgery consulted, Dr Bolaños Possible peripheral catheterization 01/14 or 01/[address] NPO at midnight PAD Chronic Hx of [place] angioplasty on 08/2018. Home meds resumed DVT of R popliteal vein Diagnosed last week. On Eliquis 5mg BID. HIV, asymptomatic controlled Last CD4 908 on 10/27/18, Viral load undetectable. Home meds resumed DM2 Chronic DC metformin ISS and hypoglycemia protocol Mild intermittent Asthma Chronic, controlled Home meds resumed. DVT prophylaxis and tx Eliquis <Fuentes Simpson D - Last Filed: 01/13/19 14:03> Objective - Vital Signs/Intake and Output Vital Signs (last 24 hours): Temp Pulse Resp BP Pulse Ox 97.8 F 85 18 104/63 93 L 01/13/19 12:04 01/13/19 12:04 01/13/19 12:04 01/13/19 12:04 01/13/19 12:04 - Medications Medications: Current Medications Albuterol (Ventolin Hfa 90 Mcg/Actuation (8 G)) 2 puff IH Q6 PRN PRN Reason: Shortness of Breath Albuterol Sulfate (Albuterol 0.083% Inhal Jammie (2.5 Mg/3 Ml) Ud) 2.5 mg IH RQ6 PRN PRN Reason: Shortness of Breath Apixaban (Eliquis) 5 mg PO Q12H [facility]; Protocol Last Admin: 01/13/19 06:09 Dose: 5 mg Atorvastatin Calcium (Lipitor) 20 mg PO QPM [facility] Last Admin: 01/12/19 18:46 Dose: 20 mg Darunavir (Prezista) 800 mg PO DAILY [facility]; Protocol Last Admin: 01/13/19 08:56 Dose: 800 mg Dextrose (Dextrose 50% Inj) 0 ml IV STAT PRN; Protocol PRN Reason: Hypoglycemia Protocol Dextrose (Glutose 15) 0 gm PO ONCE PRN; Protocol PRN Reason: Hypoglycemia Protocol Gabapentin (Neurontin) 400 mg PO Q8 [facility] Last Admin: 01/13/19 08:55 Dose: 400 mg Glipizide (Glucotrol) 5 mg PO BID [facility] Last Admin: 01/13/19 08:55 Dose: 5 mg Glucagon (Glucagen Diagnostic Kit) 0 mg IM STAT PRN; Protocol PRN Reason: Hypoglycemia Protocol Home Med (Patient's Own Medication) 1 unit PO DAILY [facility]; Protocol Last Admin: 01/13/19 08:56 Dose: 1 unit Insulin Human Lispro (Humalog) 0 units SC ACCU-CHECK [facility]; Protocol Last Admin: 01/13/19 13:24 Dose: 4 units Metformin HCl (Glucophage) 1,000 mg PO BID [facility] Morphine Sulfate (Morphine) 4 mg IVP Q4 PRN PRN Reason: Pain, moderate (4-7) Last Admin: 01/12/19 07:04 Dose: 4 mg Multivitamins/Minerals (Therapeutic-M Tab) 1 tab PO DAILY [facility] Last Admin: 01/13/19 08:56 Dose: 1 tab Oockj-0-Hvqv Ethyl Esters (Lovaza) 2 gm PO BID [facility] Last Admin: 01/13/19 08:55 Dose: 2 gm Oxycodone/Acetaminophen (Percocet 5/325 Mg Tab) 1 tab PO Q4 PRN PRN Reason: Pain, moderate (4-7) Stop: 01/14/19 18:22 Last Admin: 01/12/19 20:47 Dose: 1 tab Oxycodone/Acetaminophen (Percocet 5/325 Mg Tab) 2 tab PO Q4 PRN PRN Reason: Pain, severe (8-10) Stop: 01/14/19 19:14 Last Admin: 01/13/19 02:25 Dose: 2 tab Pantoprazole Sodium (Protonix Ec Tab) 40 mg PO DAILY [facility] Last Admin: 01/13/19 08:56 Dose: 40 mg Ritonavir (Norvir) 100 mg PO DAILY [facility] Last Admin: 01/13/19 08:55 Dose: 100 mg Sertraline HCl (Zoloft) 50 mg PO DAILY [facility] Last Admin: 01/13/19 08:57 Dose: 50 mg Sitagliptin Phosphate (Januvia) 100 mg PO DAILY [facility] Last Admin: 01/13/19 08:55 Dose: 100 mg Tenofovir Disoproxil Fumarate (Viread) 300 mg PO DAILY [facility]; Protocol Last Admin: 01/13/19 08:57 Dose: 300 mg Tramadol HCl (Ultram) 50 mg PO Q4 PRN PRN Reason: Pain, Mild (1-3) Trazodone HCl (Desyrel) 150 mg PO HS [facility] Last Admin: 01/12/19 21:57 Dose: 150 mg - Labs Labs: 01/12/19 04:50 01/12/19 04:50 PT 16.3 Seconds (9.8-13.1) H 01/11/19 14:20 INR 1.4 01/11/19 14:20 APTT 42.8 Seconds (25.6-37.1) H 01/11/19 14:20 Attending/Attestation - Attestation I have personally seen and examined this patient.: Yes I have fully participated in the care of the patient.: Yes I have reviewed all pertinent clinical information, including history, physical exam and plan: Yes Notes (Text): 01/13/19 13:57 Patient seen and examined with resident. Case discussed and agreed with assessment and plan.
[2019-01-13] MEDS: Omega-3-Acid Ethyl Esters 1 GM Cap PO SCH ×2 (08:55→17:33)
[2019-01-13] MEDS: Multivitamin With Minerals Tab PO SCH (08:56)
[2019-01-13] MEDS: Dolutegravir Sodium 50 mg Tab [Patient's Own Med] PO SCH (08:56)
[2019-01-13] MEDS: Pantoprazole 40 mg EC Tab PO SCH (08:56)
--- NOTE | 2019-01-13 09:04 | CP.PCM.PN ---
Subjective - Date & Time of Evaluation Date of Evaluation: 01/13/19 Time of Evaluation: 09:02 - Subjective Subjective: Vladislav Montes, PGY-1, Cardiology Progress Note for Dr. Bolaños Patient was seen and evaluated at bedside. Patient had no acute overnight events. Patient reports left lower extremity pain is improved from yesterday. Objective - Vital Signs/Intake and Output Vital Signs (last 24 hours): Temp Pulse Resp BP Pulse Ox 98.2 F 86 18 108/64 98 01/13/19 07:49 01/13/19 07:49 01/13/19 07:49 01/13/19 07:49 01/13/19 07:49 - Medications Medications: Current Medications Albuterol (Ventolin Hfa 90 Mcg/Actuation (8 G)) 2 puff IH Q6 PRN PRN Reason: Shortness of Breath Albuterol Sulfate (Albuterol 0.083% Inhal Jammie (2.5 Mg/3 Ml) Ud) 2.5 mg IH RQ6 PRN PRN Reason: Shortness of Breath Apixaban (Eliquis) 5 mg PO Q12H [facility]; Protocol Last Admin: 01/13/19 06:09 Dose: 5 mg Atorvastatin Calcium (Lipitor) 20 mg PO QPM [facility] Last Admin: 01/12/19 18:46 Dose: 20 mg Darunavir (Prezista) 800 mg PO DAILY [facility]; Protocol Last Admin: 01/12/19 08:43 Dose: 800 mg Dextrose (Dextrose 50% Inj) 0 ml IV STAT PRN; Protocol PRN Reason: Hypoglycemia Protocol Dextrose (Glutose 15) 0 gm PO ONCE PRN; Protocol PRN Reason: Hypoglycemia Protocol Gabapentin (Neurontin) 400 mg PO Q8 [facility] Last Admin: 01/13/19 00:33 Dose: Not Given Glipizide (Glucotrol) 5 mg PO BID [facility] Last Admin: 01/12/19 17:31 Dose: 5 mg Glucagon (Glucagen Diagnostic Kit) 0 mg IM STAT PRN; Protocol PRN Reason: Hypoglycemia Protocol Home Med (Patient's Own Medication) 1 unit PO DAILY [facility]; Protocol Last Admin: 01/12/19 17:30 Dose: 1 unit Insulin Human Lispro (Humalog) 0 units SC ACCU-CHECK [facility]; Protocol Last Admin: 01/13/19 00:31 Dose: Not Given Metformin HCl (Glucophage) 1,000 mg PO BID [facility] Morphine Sulfate (Morphine) 4 mg IVP Q4 PRN PRN Reason: Pain, moderate (4-7) Last Admin: 01/12/19 07:04 Dose: 4 mg Multivitamins/Minerals (Therapeutic-M Tab) 1 tab PO DAILY [facility] Last Admin: 01/12/19 08:47 Dose: 1 tab [id number] Ethyl Esters (Lovaza) 2 gm PO BID [facility] Last Admin: 01/12/19 17:32 Dose: 2 gm Oxycodone/Acetaminophen (Percocet 5/325 Mg Tab) 1 tab PO Q4 PRN PRN Reason: Pain, moderate (4-7) Stop: 01/14/19 18:22 Last Admin: 01/12/19 20:47 Dose: 1 tab Oxycodone/Acetaminophen (Percocet 5/325 Mg Tab) 2 tab PO Q4 PRN PRN Reason: Pain, severe (8-10) Stop: 01/14/19 19:14 Last Admin: 01/13/19 02:25 Dose: 2 tab Pantoprazole Sodium (Protonix Ec Tab) 40 mg PO DAILY [facility] Last Admin: 01/12/19 08:44 Dose: 40 mg Ritonavir (Norvir) 100 mg PO DAILY [facility] Last Admin: 01/12/19 08:43 Dose: 100 mg Sertraline HCl (Zoloft) 50 mg PO DAILY [facility] Last Admin: 01/12/19 08:48 Dose: 50 mg Sitagliptin Phosphate (Januvia) 100 mg PO DAILY [facility] Last Admin: 01/12/19 08:42 Dose: 100 mg Tenofovir Disoproxil Fumarate (Viread) 300 mg PO DAILY [facility]; Protocol Last Admin: 01/12/19 08:47 Dose: 300 mg Tramadol HCl (Ultram) 50 mg PO Q4 PRN PRN Reason: Pain, Mild (1-3) Trazodone HCl (Desyrel) 150 mg PO [facility] Last Admin: 01/12/19 21:57 Dose: 150 mg - Labs Labs: 01/12/19 04:50 01/12/19 04:50 PT 16.3 Seconds (9.8-13.1) H 01/11/19 14:20 INR 1.4 01/11/19 14:20 APTT 42.8 Seconds (25.6-37.1) H 01/11/19 14:20 - Constitutional Appears: Well, Non-toxic, In Acute Distress - Head Exam Head Exam: ATRAUMATIC, NORMAL INSPECTION, NORMOCEPHALIC - Eye Exam Eye Exam: EOMI, PERRL - ENT Exam ENT Exam: Mucous Membranes Moist - Respiratory Exam Respiratory Exam: Clear to Auscultation Bilateral, NORMAL BREATHING PATTERN - Cardiovascular Exam Cardiovascular Exam: REGULAR RHYTHM, RRR, +S1, +S2 - GI/Abdominal Exam GI & Abdominal Exam: Normal Bowel Sounds, Soft. absent: Tenderness - Extremities Exam Extremities exam: Positive for: full ROM, normal inspection, tenderness (bilateral lower extremities). Negative for: pedal edema - Neurological Exam Neurological exam: Alert, CN II-XII Intact, Oriented x3 - Skin Skin Exam: Dry, Intact Assessment and Plan (1) Deep vein thrombosis (DVT) of popliteal vein of right lower extremity Assessment & Plan: Lower extremity ultrasound 01/04/19: nonocclusive eccentric thrombus in the right popliteal vein. Possible chronic venous thrombus. Cannot rule out acute venous thrombosis though appearance is atypical. Continue with eliquis Status: Acute (2) Diabetes mellitus Assessment & Plan: Last POC glucose was 283 Would recommend restarting metformin Continue glipizide, sliding scale insulin Status: Acute (3) PVD (peripheral vascular disease) Assessment & Plan: CTA of bilateral lower extremities 01/06/19: mild plaque in the abdominal aorta without significant stenosis. Right lower extremity shows SFA with severe stenosis at the origin and multiple areas of moderate to severe stenosis throughout the mid and distal segements, sever stenosis of the popliteal artery, stenosis of the peroneal artery at the mid and distal segments. Left lower extremity shows SFA has been previously stented and has mild to severe disease in stent stenosis. Distal SFA is moderately stenotic. There is moderate stenosis of popliteal artery. Anterior tibial artery is occluded after the proximal s egment. Peroneal artery is occluded in the proximal segment with brief mid segment reconstitution then occludes again. Plan for peripheral catheterization either Thursday or Thursday Continue with eliquis and lipitor Status: Acute (4) COPD (chronic obstructive pulmonary disease) Assessment & Plan: Continue with nebulizers Status: Chronic
[2019-01-13] MEDS ORDERED: Insulin Detemir 100 Units/ml Inj SC SCH (22:00)
[2019-01-14 05:50] LABS: MEAN CELL VOLUME 87.1 fl (81.0-99.0); MEAN CORPUSCULAR HEMOGLOBIN 29.5 pg (27.0-31.0); MEAN CORPUSCULAR HGB CONC 33.9 g/dL (33.0-37.0); RBC 3.39 Mil/uL (3.80-5.20); RED CELL DISTRIBUTION WIDTH 14.1 % (11.5-14.5); WHITE BLOOD COUNT 8.9 K/uL (4.8-10.8)
[2019-01-14 06:29] LABS: BLOOD UREA NITROGEN 15 mg/dl (7-17); CALCIUM 9.5 mg/dL (8.4-10.2); GFR NON-AFRICAN AMERICAN > 60
[2019-01-14] MEDS: Oxycodone/Acetaminophen 5/325 mg Tab PO PRN ×2 (08:31→15:43)
[2019-01-14] MEDS: Pantoprazole 40 mg EC Tab PO SCH (08:35)
[2019-01-14] MEDS: Omega-3-Acid Ethyl Esters 1 GM Cap PO SCH ×2 (08:35→18:27)
[2019-01-14] MEDS: Dolutegravir Sodium 50 mg Tab [Patient's Own Med] PO SCH (08:37)
[2019-01-14] MEDS: Multivitamin With Minerals Tab PO SCH (08:37)
[2019-01-14] MEDS: Insulin Lispro (humaLOG) 100 Units/ml Inj SC SCH ×4 (08:40→23:08)
--- NOTE | 2019-01-14 11:41 | CP.PCM.PN ---
Subjective - Date & Time of Evaluation Date of Evaluation: 01/14/19 Time of Evaluation: 11:39 - Subjective Subjective: Vladislav Montes, PGY-1, Cardiology Progress Note for Dr. Bolaños Patient was seen and evaluated at bedside. Patient had no acute overnight events. Patient reports left lower extremity pain worsened from yesterday. Objective - Vital Signs/Intake and Output Vital Signs (last 24 hours): Temp Pulse Resp BP Pulse Ox 98.8 F 91 H 20 109/69 98 01/14/19 08:32 01/14/19 08:32 01/14/19 08:32 01/14/19 08:32 01/14/19 08:32 - Medications Medications: Current Medications Albuterol (Ventolin Hfa 90 Mcg/Actuation (8 G)) 2 puff IH Q6 PRN PRN Reason: Shortness of Breath Albuterol Sulfate (Albuterol 0.083% Inhal Jammie (2.5 Mg/3 Ml) Ud) 2.5 mg IH RQ6 PRN PRN Reason: Shortness of Breath Apixaban (Eliquis) 5 mg PO Q12H [facility]; Protocol Last Admin: 01/13/19 18:24 Dose: 5 mg Atorvastatin Calcium (Lipitor) 20 mg PO QPM [facility] Last Admin: 01/13/19 18:25 Dose: 20 mg Darunavir (Prezista) 800 mg PO DAILY [facility]; Protocol Last Admin: 01/14/19 08:38 Dose: 800 mg Dextrose (Dextrose 50% Inj) 0 ml IV STAT PRN; Protocol PRN Reason: Hypoglycemia Protocol Dextrose (Glutose 15) 0 gm PO ONCE PRN; Protocol PRN Reason: Hypoglycemia Protocol Docusate Sodium (Colace) 100 mg PO BID [facility] Gabapentin (Neurontin) 400 mg PO Q8 [facility] Last Admin: 01/14/19 08:38 Dose: 400 mg Glipizide (Glucotrol) 5 mg PO BID [facility] Last Admin: 01/14/19 08:38 Dose: 5 mg Glucagon (Glucagen Diagnostic Kit) 0 mg IM STAT PRN; Protocol PRN Reason: Hypoglycemia Protocol Home Med (Patient's Own Medication) 1 unit PO DAILY [facility]; Protocol Last Admin: 01/14/19 08:37 Dose: 1 unit Insulin Detemir (Levemir) 8 units SC HS [facility] Last Admin: 01/13/19 21:39 Dose: 8 units Insulin Human Lispro (Humalog) 0 units SC ACCU-CHECK [facility]; Protocol Last Admin: 01/14/19 08:40 Dose: 2 units Metformin HCl (Glucophage) 1,000 mg PO BID [facility] Morphine Sulfate (Morphine) 4 mg IVP Q4 PRN PRN Reason: Pain, moderate (4-7) Last Admin: 01/13/19 14:14 Dose: 4 mg Multivitamins/Minerals (Therapeutic-M Tab) 1 tab PO DAILY [facility] Last Admin: 01/14/19 08:37 Dose: 1 tab Kcaxu-4-Pigg Ethyl Esters (Lovaza) 2 gm PO BID [facility] Last Admin: 01/14/19 08:35 Dose: 2 gm Oxycodone/Acetaminophen (Percocet 5/325 Mg Tab) 1 tab PO Q4 PRN PRN Reason: Pain, moderate (4-7) Stop: 01/14/19 18:22 Last Admin: 01/12/19 20:47 Dose: 1 tab Oxycodone/Acetaminophen (Percocet 5/325 Mg Tab) 2 tab PO Q4 PRN PRN Reason: Pain, severe (8-10) Stop: 01/14/19 19:14 Last Admin: 01/14/19 08:31 Dose: 2 tab Pantoprazole Sodium (Protonix Ec Tab) 40 mg PO DAILY [facility] Last Admin: 01/14/19 08:35 Dose: 40 mg Ritonavir (Norvir) 100 mg PO DAILY [facility] Last Admin: 01/13/19 08:55 Dose: 100 mg Sertraline HCl (Zoloft) 50 mg PO DAILY [facility] Last Admin: 01/14/19 08:38 Dose: 50 mg Sitagliptin Phosphate (Januvia) 100 mg PO DAILY [facility] Last Admin: 01/14/19 08:36 Dose: 100 mg Tenofovir Disoproxil Fumarate (Viread) 300 mg PO DAILY [facility]; Protocol Last Admin: 01/14/19 08:35 Dose: 300 mg Tramadol HCl (Ultram) 50 mg PO Q4 PRN PRN Reason: Pain, Mild (1-3) Trazodone HCl (Desyrel) 150 mg PO [facility] Last Admin: 01/13/19 21:40 Dose: 150 mg - Labs Labs: 01/14/19 04:35 01/14/19 04:35 PT 16.3 Seconds (9.8-13.1) H 01/11/19 14:20 INR 1.4 01/11/19 14:20 APTT 42.8 Seconds (25.6-37.1) H 01/11/19 14:20 - Constitutional Appears: Well, Non-toxic, In Acute Distress - Head Exam Head Exam: ATRAUMATIC, NORMAL INSPECTION, NORMOCEPHALIC - Eye Exam Eye Exam: EOMI, PERRL - ENT Exam ENT Exam: Mucous Membranes Moist - Respiratory Exam Respiratory Exam: Clear to Auscultation Bilateral, NORMAL BREATHING PATTERN - Cardiovascular Exam Cardiovascular Exam: REGULAR RHYTHM, RRR, +S1, +S2 - GI/Abdominal Exam GI & Abdominal Exam: Normal Bowel Sounds, Soft. absent: Tenderness - Extremities Exam Extremities exam: Positive for: full ROM, normal inspection, tenderness (bilateral lower extremities). Negative for: pedal edema - Neurological Exam Neurological exam: Alert, CN II-XII Intact, Oriented x3 - Skin Skin Exam: Dry, Intact Assessment and Plan (1) PVD (peripheral vascular disease) Assessment & Plan: CTA of bilateral lower extremities 01/06/19: mild plaque in the abdominal aorta without significant stenosis. Right lower extremity shows SFA with severe stenosis at the origin and multiple areas of moderate to severe stenosis throughout the mid and distal segements, sever stenosis of the popliteal artery, stenosis of the peroneal artery at the mid and distal segments. Left lower extremity shows SFA has been previously stented and has mild to severe disease in stent stenosis. Distal SFA is moderately stenotic. There is moderate stenosis of popliteal artery. Anterior tibial artery is occluded after the proximal se gment. Peroneal artery is occluded in the proximal segment with brief mid segment reconstitution then occludes again. Plan for peripheral catheterization Thursday Continue with eliquis and lipitor Status: Acute (2) Deep vein thrombosis (DVT) of popliteal vein of right lower extremity Assessment & Plan: Lower extremity ultrasound 01/04/19: nonocclusive eccentric thrombus in the right popliteal vein. Possible chronic venous thrombus. Cannot rule out acute venous thrombosis though appearance is atypical. Continue with eliquis Status: Acute (3) Diabetes mellitus Assessment & Plan: HgbA1c from 11/17/18: 8.2 Would recommend restarting metformin Continue glipizide, sliding scale insulin Status: Acute (4) COPD (chronic obstructive pulmonary disease) Assessment & Plan: Continue with nebulizers Status: Chronic
--- NOTE | 2019-01-14 14:56 | CP.PCM.PN ---
<Dano Solis - Last Filed: 01/14/19 15:00> Subjective - Date & Time of Evaluation Date of Evaluation: 01/14/19 Time of Evaluation: 07:00 - Subjective Subjective: Patient seen and examined at bedside. No acute event overnight. Patient is getting prepped for catheterization, otherwise she denies any new symptoms. Will hold eliquis, and hold food un Thursday night to be ready for catheterization on Thursday. Objective - Vital Signs/Intake and Output Vital Signs (last 24 hours): Temp Pulse Resp BP Pulse Ox 98 F 82 20 100/60 94 L 01/14/19 12:33 01/14/19 12:33 01/14/19 12:33 01/14/19 12:33 01/14/19 12:33 - Medications Medications: Current Medications Albuterol (Ventolin Hfa 90 Mcg/Actuation (8 G)) 2 puff IH Q6 PRN PRN Reason: Shortness of Breath Albuterol Sulfate (Albuterol 0.083% Inhal Jammei (2.5 Mg/3 Ml) Ud) 2.5 mg IH RQ6 PRN PRN Reason: Shortness of Breath Apixaban (Eliquis) 5 mg PO Q12H [facility]; Protocol Last Admin: 01/13/19 18:24 Dose: 5 mg Atorvastatin Calcium (Lipitor) 20 mg PO QPM [facility] Last Admin: 01/13/19 18:25 Dose: 20 mg Darunavir (Prezista) 800 mg PO DAILY [facility]; Protocol Last Admin: 01/14/19 08:38 Dose: 800 mg Dextrose (Dextrose 50% Inj) 0 ml IV STAT PRN; Protocol PRN Reason: Hypoglycemia Protocol Dextrose (Glutose 15) 0 gm PO ONCE PRN; Protocol PRN Reason: Hypoglycemia Protocol Docusate Sodium (Colace) 100 mg PO BID [facility] Last Admin: 01/14/19 12:46 Dose: 100 mg Gabapentin (Neurontin) 400 mg PO Q8 [facility] Last Admin: 01/14/19 08:38 Dose: 400 mg Glipizide (Glucotrol) 5 mg PO BID [facility] Last Admin: 01/14/19 08:38 Dose: 5 mg Glucagon (Glucagen Diagnostic Kit) 0 mg IM STAT PRN; Protocol PRN Reason: Hypoglycemia Protocol Home Med (Patient's Own Medication) 1 unit PO DAILY [facility]; Protocol Last Admin: 01/14/19 08:37 Dose: 1 unit Insulin Detemir (Levemir) 11 units SC [facility] Insulin Human Lispro (Humalog) 0 units SC ACCU-CHECK [facility]; Protocol Last Admin: 01/14/19 12:48 Dose: 4 units Metformin HCl (Glucophage) 1,000 mg PO BID [facility] Morphine Sulfate (Morphine) 4 mg IVP Q4 PRN PRN Reason: Pain, moderate (4-7) Last Admin: 01/13/19 14:14 Dose: 4 mg Multivitamins/Minerals (Therapeutic-M Tab) 1 tab PO DAILY [facility] Last Admin: 01/14/19 08:37 Dose: 1 tab Czhaq-3-Ofet Ethyl Esters (Lovaza) 2 gm PO BID [facility] Last Admin: 01/14/19 08:35 Dose: 2 gm Oxycodone/Acetaminophen (Percocet 5/325 Mg Tab) 1 tab PO Q4 PRN PRN Reason: Pain, moderate (4-7) Stop: 01/14/19 18:22 Last Admin: 01/12/19 20:47 Dose: 1 tab Oxycodone/Acetaminophen (Percocet 5/325 Mg Tab) 2 tab PO Q4 PRN PRN Reason: Pain, severe (8-10) Stop: 01/14/19 19:14 Last Admin: 01/14/19 08:31 Dose: 2 tab Pantoprazole Sodium (Protonix Ec Tab) 40 mg PO DAILY [facility] Last Admin: 01/14/19 08:35 Dose: 40 mg Ritonavir (Norvir) 100 mg PO DAILY [facility] Last Admin: 01/14/19 09:55 Dose: 100 mg Sertraline HCl (Zoloft) 50 mg PO DAILY [facility] Last Admin: 01/14/19 08:38 Dose: 50 mg Sitagliptin Phosphate (Januvia) 100 mg PO DAILY [facility] Last Admin: 01/14/19 08:36 Dose: 100 mg Tenofovir Disoproxil Fumarate (Viread) 300 mg PO DAILY [facility]; Protocol Last Admin: 01/14/19 08:35 Dose: 300 mg Tramadol HCl (Ultram) 50 mg PO Q4 PRN PRN Reason: Pain, Mild (1-3) Trazodone HCl (Desyrel) 150 mg PO [facility] Last Admin: 01/13/19 21:40 Dose: 150 mg - Labs Labs: 01/14/19 04:35 01/14/19 04:35 PT 16.3 Seconds (9.8-13.1) H 01/11/19 14:20 INR 1.4 01/11/19 14:20 APTT 42.8 Seconds (25.6-37.1) H 01/11/19 14:20 - Constitutional Appears: Well, Non-toxic, No Acute Distress - Head Exam Head Exam: ATRAUMATIC, NORMAL INSPECTION, NORMOCEPHALIC - Eye Exam Eye Exam: EOMI, Normal appearance, PERRL Pupil Exam: NORMAL ACCOMODATION, PERRL - ENT Exam ENT Exam: Mucous Membranes Moist, Normal Exam - Neck Exam Neck Exam: Full ROM, Normal Inspection - Respiratory Exam Respiratory Exam: Clear to Ausculation Bilateral, NORMAL BREATHING PATTERN - Cardiovascular Exam Cardiovascular Exam: REGULAR RHYTHM, +S1, +S2 - GI/Abdominal Exam GI & Abdominal Exam: Soft, Normal Bowel Sounds - Extremities Exam Additional comments: LLE No pulse felt or heard by doppler on LLE (Dorsalis pedis/popliteal) femoral pulse intact LLE discoloration and cold to touch and tender RLE WNL - Back Exam Back Exam: NORMAL INSPECTION - Neurological Exam Neurological Exam: Alert, Awake, Oriented x3 - Psychiatric Exam Psychiatric exam: Normal Affect, Normal Mood - Skin Skin Exam: Dry, Intact, Normal Color, Warm Assessment and Plan - Assessment and Plan (Free Text) Assessment: Assessment: 63 yo female with PMHx of HIV, DM2, HLD, PAD, peripheral neuropathy and Hodgkins Lymphoma was admitted for evaluation and management of PVD --CTA 01/06/18: mild plaque in the abdominal aorta without significant stenosis. RLE shows SFA with severe stenosis at the origin and multiple areas of moderate to severe stenosis throughout the mid and distal segments, sever stenosis of the popliteal artery, stenosis of the peroneal artery at the mid and distal segments. LLE shows: SFA has been previously stented and has mild to severe disease in stent stenosis. Distal SFA is moderately stenotic. Moderate stenosis of popliteal artery. Anterior tibial artery is occluded after the proximal segment. Peroneal artery is occluded in the proximal segment with brief mid segment reconstitution then occludes again. PLAN: Intractable Left Leg Pain LLE pulse still not palpable; no change LLE is darker than RLE Chronic, Hx of PAd and stent placement, will need recatherization in LLE Pain management ordered: Tramadol for mild, Percocet for moderate and for severe. Vascular Surgery consulted, Dr Bolaños peripheral catheterization on 01/17 NPO at midnight on 01/17 PAD Chronic Hx of Ballon angioplasty on 08/2018. Home meds resumed DVT of R popliteal vein Diagnosed last week. hold eliquis HIV, asymptomatic controlled Last CD4 908 on 10/27/18, Viral load undetectable. Home meds resumed DM2 Chronic DC metformin ISS and hypoglycemia protocol Mild intermittent Asthma Chronic, controlled Home meds resumed. DVT prophylaxis and tx Hold eliquis <Kaity Peacock - Last Filed: 01/14/19 15:38> Objective - Vital Signs/Intake and Output Vital Signs (last 24 hours): Temp Pulse Resp BP Pulse Ox 98 F 82 20 100/60 94 L 01/14/19 12:33 01/14/19 12:33 01/14/19 12:33 01/14/19 12:33 01/14/19 12:33 - Medications Medications: Current Medications Albuterol (Ventolin Hfa 90 Mcg/Actuation (8 G)) 2 puff IH Q6 PRN PRN Reason: Shortness of Breath Albuterol Sulfate (Albuterol 0.083% Inhal Jammie (2.5 Mg/3 Ml) Ud) 2.5 mg IH RQ6 PRN PRN Reason: Shortness of Breath Apixaban (Eliquis) 5 mg PO Q12H [facility]; Protocol Last Admin: 01/13/19 18:24 Dose: 5 mg Atorvastatin Calcium (Lipitor) 20 mg PO QPM [facility] Last Admin: 01/13/19 18:25 Dose: 20 mg Darunavir (Prezista) 800 mg PO DAILY [facility]; Protocol Last Admin: 01/14/19 08:38 Dose: 800 mg Dextrose (Dextrose 50% Inj) 0 ml IV STAT PRN; Protocol PRN Reason: Hypoglycemia Protocol Dextrose (Glutose 15) 0 gm PO ONCE PRN; Protocol PRN Reason: Hypoglycemia Protocol Docusate Sodium (Colace) 100 mg PO BID [facility] Last Admin: 01/14/19 12:46 Dose: 100 mg Gabapentin (Neurontin) 400 mg PO Q8 [facility] Last Admin: 01/14/19 08:38 Dose: 400 mg Glipizide (Glucotrol) 5 mg PO BID [facility] Last Admin: 01/14/19 08:38 Dose: 5 mg Glucagon (Glucagen Diagnostic Kit) 0 mg IM STAT PRN; Protocol PRN Reason: Hypoglycemia Protocol Home Med (Patient's Own Medication) 1 unit PO DAILY [facility]; Protocol Last Admin: 01/14/19 08:37 Dose: 1 unit Insulin Detemir (Levemir) 11 units SC [facility] Insulin Human Lispro (Humalog) 0 units SC ACCU-CHECK [facility]; Protocol Last Admin: 01/14/19 12:48 Dose: 4 units Metformin HCl (Glucophage) 1,000 mg PO BID [facility] Morphine Sulfate (Morphine) 4 mg IVP Q4 PRN PRN Reason: Pain, moderate (4-7) Last Admin: 01/13/19 14:14 Dose: 4 mg Multivitamins/Minerals (Therapeutic-M Tab) 1 tab PO DAILY [facility] Last Admin: 01/14/19 08:37 Dose: 1 tab Wyhwa-3-Tqkw Ethyl Esters (Lovaza) 2 gm PO BID [facility] Last Admin: 01/14/19 08:35 Dose: 2 gm Oxycodone/Acetaminophen (Percocet 5/325 Mg Tab) 1 tab PO Q4 PRN PRN Reason: Pain, moderate (4-7) Stop: 01/14/19 18:22 Last Admin: 01/12/19 20:47 Dose: 1 tab Oxycodone/Acetaminophen (Percocet 5/325 Mg Tab) 2 tab PO Q4 PRN PRN Reason: Pain, severe (8-10) Stop: 01/14/19 19:14 Last Admin: 01/14/19 08:31 Dose: 2 tab Pantoprazole Sodium (Protonix Ec Tab) 40 mg PO DAILY [facility] Last Admin: 01/14/19 08:35 Dose: 40 mg Ritonavir (Norvir) 100 mg PO DAILY [facility] Last Admin: 01/14/19 09:55 Dose: 100 mg Sertraline HCl (Zoloft) 50 mg PO DAILY [facility] Last Admin: 01/14/19 08:38 Dose: 50 mg Sitagliptin Phosphate (Januvia) 100 mg PO DAILY [facility] Last Admin: 01/14/19 08:36 Dose: 100 mg Tenofovir Disoproxil Fumarate (Viread) 300 mg PO DAILY [facility]; Protocol Last Admin: 01/14/19 08:35 Dose: 300 mg Tramadol HCl (Ultram) 50 mg PO Q4 PRN PRN Reason: Pain, Mild (1-3) Trazodone HCl (Desyrel) 150 mg PO HS [facility] Last Admin: 01/13/19 21:40 Dose: 150 mg - Labs Labs: 01/14/19 04:35 01/14/19 04:35 PT 16.3 Seconds (9.8-13.1) H 01/11/19 14:20 INR 1.4 01/11/19 14:20 APTT 42.8 Seconds (25.6-37.1) H 01/11/19 14:20 Attending/Attestation - Attestation I have personally seen and examined this patient.: Yes I have fully participated in the care of the patient.: Yes I have reviewed all pertinent clinical information, including history, physical exam and plan: Yes Notes (Text): 01/14/19 15:37 agree with findings and plan as above. Patient for interventional cardiology on Thursday, Eliquis stopped last night.
[2019-01-14] MEDS ORDERED: Insulin Detemir 100 Units/ml Inj SC SCH (22:00)
[2019-01-15] MEDS: Insulin Lispro (humaLOG) 100 Units/ml Inj SC SCH ×4 (07:41→22:27)
--- NOTE | 2019-01-15 07:48 | CP.PCM.PN ---
<Rajeev Peralta - Last Filed: 01/15/19 10:21> Subjective - Date & Time of Evaluation Date of Evaluation: 01/15/19 Time of Evaluation: 07:47 - Subjective Subjective: Patient seen and examined at bedside. no acute overnight events. c/o left lower extremity pain worsen since 2 days ago, patient scheduled for cath next Thursday held Eliquis and NPO Thursday [place]. No others complaints. Objective - Vital Signs/Intake and Output Vital Signs (last 24 hours): Temp Pulse Resp BP Pulse Ox 98.2 F 92 H 16 111/56 L 95 01/15/19 05:00 01/15/19 05:00 01/15/19 05:00 01/15/19 05:00 01/15/19 05:00 - Medications Medications: Current Medications Albuterol (Ventolin Hfa 90 Mcg/Actuation (8 G)) 2 puff IH Q6 PRN PRN Reason: Shortness of Breath Albuterol Sulfate (Albuterol 0.083% Inhal Jammie (2.5 Mg/3 Ml) Ud) 2.5 mg IH RQ6 PRN PRN Reason: Shortness of Breath Apixaban (Eliquis) 5 mg PO Q12H [facility]; Protocol Last Admin: 01/13/19 18:24 Dose: 5 mg Atorvastatin Calcium (Lipitor) 20 mg PO QPM [facility] Last Admin: 01/14/19 18:28 Dose: 20 mg Darunavir (Prezista) 800 mg PO DAILY [facility]; Protocol Last Admin: 01/14/19 08:38 Dose: 800 mg Dextrose (Dextrose 50% Inj) 0 ml IV STAT PRN; Protocol PRN Reason: Hypoglycemia Protocol Dextrose (Glutose 15) 0 gm PO ONCE PRN; Protocol PRN Reason: Hypoglycemia Protocol Docusate Sodium (Colace) 100 mg PO BID [facility] Last Admin: 01/14/19 18:32 Dose: 100 mg Gabapentin (Neurontin) 400 mg PO Q8 [facility] Last Admin: 01/15/19 01:00 Dose: Not Given Glipizide (Glucotrol) 5 mg PO BID [facility] Last Admin: 01/14/19 16:28 Dose: 5 mg Glucagon (Glucagen Diagnostic Kit) 0 mg IM STAT PRN; Protocol PRN Reason: Hypoglycemia Protocol Home Med (Patient's Own Medication) 1 unit PO DAILY [facility]; Protocol Last Admin: 01/14/19 08:37 Dose: 1 unit Insulin Detemir (Levemir) 11 units SC HS [facility] Last Admin: 01/14/19 21:52 Dose: 11 units Insulin Human Lispro (Humalog) 0 units SC ACCU-CHECK [facility]; Protocol Last Admin: 01/14/19 23:08 Dose: Not Given Metformin HCl (Glucophage) 1,000 mg PO BID [facility] Morphine Sulfate (Morphine) 4 mg IVP Q4 PRN PRN Reason: Pain, moderate (4-7) Last Admin: 01/15/19 05:40 Dose: 4 mg Multivitamins/Minerals (Therapeutic-M Tab) 1 tab PO DAILY [facility] Last Admin: 01/14/19 08:37 Dose: 1 tab Wwmxo-1-Qbro Ethyl Esters (Lovaza) 2 gm PO BID [facility] Last Admin: 01/14/19 18:27 Dose: 2 gm Pantoprazole Sodium (Protonix Ec Tab) 40 mg PO DAILY [facility] Last Admin: 01/14/19 08:35 Dose: 40 mg Ritonavir (Norvir) 100 mg PO DAILY [facility] Last Admin: 01/14/19 09:55 Dose: 100 mg Sertraline HCl (Zoloft) 50 mg PO DAILY [facility] Last Admin: 01/14/19 08:38 Dose: 50 mg Sitagliptin Phosphate (Januvia) 100 mg PO DAILY [facility] Last Admin: 01/14/19 08:36 Dose: 100 mg Tenofovir Disoproxil Fumarate (Viread) 300 mg PO DAILY [facility]; Protocol Last Admin: 01/14/19 08:35 Dose: 300 mg Tramadol HCl (Ultram) 50 mg PO Q4 PRN PRN Reason: Pain, Mild (1-3) Last Admin: 01/14/19 19:52 Dose: 50 mg Trazodone HCl (Desyrel) 150 mg PO HS [facility] Last Admin: 01/14/19 21:52 Dose: 150 mg - Labs Labs: 01/14/19 04:35 01/14/19 04:35 PT 16.3 Seconds (9.8-13.1) H 01/11/19 14:20 INR 1.4 01/11/19 14:20 APTT 42.8 Seconds (25.6-37.1) H 01/11/19 14:20 - Constitutional Appears: In Acute Distress (due to pain) - Head Exam Head Exam: NORMAL INSPECTION - Respiratory Exam Respiratory Exam: Clear to Ausculation Bilateral, NORMAL BREATHING PATTERN - Cardiovascular Exam Cardiovascular Exam: REGULAR RHYTHM, +S1, +S2. absent: Tachycardia - GI/Abdominal Exam GI & Abdominal Exam: Soft, Normal Bowel Sounds. absent: Tenderness - Extremities Exam Extremities Exam: absent: Pedal Edema Additional comments: LLE No pulse felt or heard by doppler on LLE (Dorsalis pedis/popliteal) femoral pulse intact LLE discoloration on dorsal foot, cold to touch and very exquisite tenderness to light touch RLE no calf pain edema or skin discoloration. DP/PT present. - Neurological Exam Neurological Exam: Alert, Awake, Oriented x3 - Skin Skin Exam: Dry, Warm Assessment and Plan - Assessment and Plan (Free Text) Assessment: 63 yo female with PMHx of HIV, DM2, HLD, PAD, peripheral neuropathy and Hodgkins Lymphoma was admitted for evaluation and management of severe PVD with i ntractable LLE pain. CTA 01/06/18: mild plaque in the abdominal aorta without significant stenosis. RLE shows SFA with severe stenosis at the origin and multiple areas of moderate to severe stenosis throughout the mid and distal segments, sever stenosis of the popliteal artery, stenosis of the peroneal artery at the mid and distal segments. LLE shows: SFA has been previously stented and has mild to severe disease in stent stenosis. Distal SFA is moderately stenotic. Moderate stenosis of popliteal artery. Anterior tibial artery is occluded after the proximal segment. Peroneal artery is occluded in the proximal segment with brief mid segment reconstitution then occludes again. Plan: Intractable LLE Pain Severe PAD - Hx of [place] angioplasty on 08/2018. - LLE pulse still not palpable; no change - LLE is darker than RLE - Chronic, Hx of PAD and stent placement, will need recatherization in LLE - Pain management: Tramadol for mild, Percocet for moderate and for severe. - Vascular Surgery consulted, Dr Bolaños - peripheral catheterization on 01/17 - NPO at midnight on 01/17 - held eliquis for now before procedure - rest of home meds resumed Non occlusive DVT of R popliteal vein - Diagnosed last week. - hold eliquis for now HIV, asymptomatic - controlled - Last CD4 908 on 10/27/18, - Viral load undetectable. - Continue home meds DM2 - Chronic - DC metformin before procedure for contrast use - ISS and hypoglycemia protocol Mild intermittent Asthma - Chronic, controlled - Home meds resumed. DVT prophylaxis and tx - Hold eliquis for now because procedure on Thursday. Case discussed with Dr Gigi Anna PGY 2 <Fuentes Simpson D - Last Filed: 01/15/19 11:05> Objective - Vital Signs/Intake and Output Vital Signs (last 24 hours): Temp Pulse Resp BP Pulse Ox 98.5 F 97 H 18 110/68 94 L 01/15/19 08:12 01/15/19 08:12 01/15/19 08:12 01/15/19 08:12 01/15/19 08:12 - Medications Medications: Current Medications Albuterol (Ventolin Hfa 90 Mcg/Actuation (8 G)) 2 puff IH Q6 PRN PRN Reason: Shortness of Breath Albuterol Sulfate (Albuterol 0.083% Inhal Jammie (2.5 Mg/3 Ml) Ud) 2.5 mg IH RQ6 PRN PRN Reason: Shortness of Breath Apixaban (Eliquis) 5 mg PO Q12H [facility]; Protocol Last Admin: 01/13/19 18:24 Dose: 5 mg Atorvastatin Calcium (Lipitor) 20 mg PO QPM [facility] Last Admin: 01/14/19 18:28 Dose: 20 mg Darunavir (Prezista) 800 mg PO DAILY [facility]; Protocol Last Admin: 01/15/19 09:38 Dose: 800 mg Dextrose (Dextrose 50% Inj) 0 ml IV STAT PRN; Protocol PRN Reason: Hypoglycemia Protocol Dextrose (Glutose 15) 0 gm PO ONCE PRN; Protocol PRN Reason: Hypoglycemia Protocol Docusate Sodium (Colace) 100 mg PO BID [facility] Last Admin: 01/15/19 09:39 Dose: 100 mg Gabapentin (Neurontin) 400 mg PO Q8 [facility] Last Admin: 01/15/19 09:36 Dose: 400 mg Glipizide (Glucotrol) 5 mg PO BID [facility] Last Admin: 01/15/19 09:36 Dose: 5 mg Glucagon (Glucagen Diagnostic Kit) 0 mg IM STAT PRN; Protocol PRN Reason: Hypoglycemia Protocol Home Med (Patient's Own Medication) 1 unit PO DAILY [facility]; Protocol Last Admin: 01/15/19 09:37 Dose: 1 unit Insulin Detemir (Levemir) 13 units SC [facility] Insulin Human Lispro (Humalog) 0 units SC ACCU-CHECK [facility]; Protocol Last Admin: 01/15/19 07:41 Dose: 3 units Metformin HCl (Glucophage) 1,000 mg PO BID [facility] Morphine Sulfate (Morphine) 4 mg IVP Q4 PRN PRN Reason: Pain, severe (8-10) Multivitamins/Minerals (Therapeutic-M Tab) 1 tab PO DAILY [facility] Last Admin: 01/15/19 09:36 Dose: 1 tab Pkhnw-0-Vgte Ethyl Esters (Lovaza) 2 gm PO BID [facility] Last Admin: 01/15/19 09:35 Dose: 2 gm Oxycodone/Acetaminophen (Percocet 5/325 Mg Tab) 2 tab PO Q6 PRN PRN Reason: Pain, moderate (4-7) Stop: 01/18/19 10:01 Last Admin: 01/15/19 09:34 Dose: 2 tab Oxycodone/Acetaminophen (Percocet 5/325 Mg Tab) 1 tab PO Q6 PRN PRN Reason: Pain, Mild (1-3) Stop: 01/18/19 08:58 Pantoprazole Sodium (Protonix Ec Tab) 40 mg PO DAILY [facility] Last Admin: 01/15/19 09:36 Dose: 40 mg Ritonavir (Norvir) 100 mg PO DAILY [facility] Last Admin: 01/15/19 09:36 Dose: 100 mg Sertraline HCl (Zoloft) 50 mg PO DAILY [facility] Last Admin: 01/15/19 09:38 Dose: 50 mg Sitagliptin Phosphate (Januvia) 100 mg PO DAILY [facility] Last Admin: 01/15/19 09:39 Dose: 100 mg Tenofovir Disoproxil Fumarate (Viread) 300 mg PO DAILY [facility]; Protocol Last Admin: 01/15/19 09:38 Dose: 300 mg Trazodone HCl (Desyrel) 150 mg PO [facility] Last Admin: 01/14/19 21:52 Dose: 150 mg - Labs Labs: 01/14/19 04:35 01/14/19 04:35 PT 16.3 Seconds (9.8-13.1) H 01/11/19 14:20 INR 1.4 01/11/19 14:20 APTT 42.8 Seconds (25.6-37.1) H 01/11/19 14:20 Attending/Attestation - Attestation I have personally seen and examined this patient.: Yes I have fully participated in the care of the patient.: Yes I have reviewed all pertinent clinical information, including history, physical exam and plan: Yes Notes (Text): 01/15/19 11:04 Patient seen and examined with resident. Case discussed and agreed with assessment and plan.
[2019-01-15] MEDS ORDERED: Oxycodone/Acetaminophen 5/325 mg Tab PO PRN ×2 (08:51→08:57)
[2019-01-15] MEDS: Oxycodone/Acetaminophen 5/325 mg Tab PO PRN ×2 (09:34→21:42)
[2019-01-15] MEDS: Omega-3-Acid Ethyl Esters 1 GM Cap PO SCH ×2 (09:35→18:01)
[2019-01-15] MEDS: Pantoprazole 40 mg EC Tab PO SCH (09:36)
[2019-01-15] MEDS: Multivitamin With Minerals Tab PO SCH (09:36)
[2019-01-15] MEDS: Dolutegravir Sodium 50 mg Tab [Patient's Own Med] PO SCH (09:37)
[2019-01-15] MEDS ORDERED: Insulin Detemir 100 Units/ml Inj SC SCH (22:00)
[2019-01-16] MEDS ORDERED: Morphine 4 MG/ML VIAL ONE (01:03)
[2019-01-16] MEDS: Morphine 4 MG/ML VIAL IVP PRN ×2 (01:05→22:13)
--- NOTE | 2019-01-16 06:33 | CP.PCM.PN ---
<Dano Solis - Last Filed: 01/16/19 12:18> Subjective - Date & Time of Evaluation Date of Evaluation: 01/16/19 Time of Evaluation: 07:00 - Subjective Subjective: Pt seen and examined at bedside no acute event overnight. Patient report leg pain still present, unchanged but alleviated by medication. Otherwise she denies any chest pain, sob, abd pain, diarrhea, constipation dysuria or polyuria. Objective - Vital Signs/Intake and Output Vital Signs (last 24 hours): Temp Pulse Resp BP Pulse Ox 97.8 F 76 18 97/61 L 97 01/16/19 04:53 01/16/19 04:53 01/16/19 04:53 01/16/19 04:53 01/16/19 04:53 - Medications Medications: Current Medications Albuterol (Ventolin Hfa 90 Mcg/Actuation (8 G)) 2 puff IH Q6 PRN PRN Reason: Shortness of Breath Albuterol Sulfate (Albuterol 0.083% Inhal Jammie (2.5 Mg/3 Ml) Ud) 2.5 mg IH RQ6 PRN PRN Reason: Shortness of Breath Apixaban (Eliquis) 5 mg PO Q12H [facility]; Protocol Last Admin: 01/13/19 18:24 Dose: 5 mg Atorvastatin Calcium (Lipitor) 20 mg PO QPM [facility] Last Admin: 01/15/19 18:00 Dose: 20 mg Darunavir (Prezista) 800 mg PO DAILY COUNTS [facility]CLUDE 234 BEDS AT THE [facility]; Protocol Last Admin: 01/15/19 09:38 Dose: 800 mg Dextrose (Dextrose 50% Inj) 0 ml IV STAT PRN; Protocol PRN Reason: Hypoglycemia Protocol Dextrose (Glutose 15) 0 gm PO ONCE PRN; Protocol PRN Reason: Hypoglycemia Protocol Docusate Sodium (Colace) 100 mg PO BID COUNTS INCLUDE 234 BEDS AT THE [facility] Last Admin: 01/15/19 17:49 Dose: 100 mg Gabapentin (Neurontin) 400 mg PO Q8 COUNTS INCLUDE 234 BEDS AT THE [facility] Last Admin: 01/16/19 00:21 Dose: 400 mg Glipizide (Glucotrol) 10 mg PO BID COUNTS INCLUDE 234 BEDS AT THE [facility] Last Admin: 01/15/19 17:59 Dose: 10 mg Glucagon (Glucagen Diagnostic Kit) 0 mg IM STAT PRN; Protocol PRN Reason: Hypoglycemia Protocol Home Med (Patient's Own Medication) 1 unit PO DAILY COUNTS INCLUDE 234 BEDS AT THE [facility]; Protocol Last Admin: 01/15/19 09:37 Dose: 1 unit Insulin Detemir (Levemir) 13 units SC HS COUNTS INCLUDE 234 BEDS AT THE [facility] Last Admin: 01/15/19 21:39 Dose: 13 units Insulin Human Lispro (Humalog) 0 units SC ACCU-CHECK COUNTS INCLUDE 234 BEDS AT THE [facility]; Protocol Last Admin: 01/15/19 22:27 Dose: 3 units Metformin HCl (Glucophage) 1,000 mg PO BID COUNTS INCLUDE 234 BEDS AT THE [facility] Morphine Sulfate (Morphine) 4 mg IVP Q4 PRN PRN Reason: Pain, severe (8-10) Last Admin: 01/16/19 01:05 Dose: 4 mg Multivitamins/Minerals (Therapeutic-M Tab) 1 tab PO DAILY COUNTS INCLUDE 234 BEDS AT THE [facility] Last Admin: 01/15/19 09:36 Dose: 1 tab [id number]-[id number] Ethyl Esters (Lovaza) 2 gm PO BID COUNTS INCLUDE 234 BEDS AT THE [facility] Last Admin: 01/15/19 18:01 Dose: 2 gm Oxycodone/Acetaminophen (Percocet 5/325 Mg Tab) 2 tab PO Q6 PRN PRN Reason: Pain, moderate (4-7) Stop: 01/18/19 10:01 Last Admin: 01/15/19 21:42 Dose: 2 tab Oxycodone/Acetaminophen (Percocet 5/325 Mg Tab) 1 tab PO Q6 PRN PRN Reason: Pain, Mild (1-3) Stop: 01/18/19 08:58 Pantoprazole Sodium (Protonix Ec Tab) 40 mg PO DAILY COUNTS INCLUDE 234 BEDS AT THE [facility] Last Admin: 01/15/19 09:36 Dose: 40 mg Ritonavir (Norvir) 100 mg PO DAILY COUNTS INCLUDE 234 BEDS AT THE [facility] Last Admin: 01/15/19 09:36 Dose: 100 mg Sertraline HCl (Zoloft) 50 mg PO DAILY COUNTS INCLUDE 234 BEDS AT THE [facility] Last Admin: 01/15/19 09:38 Dose: 50 mg Sitagliptin Phosphate (Januvia) 100 mg PO DAILY COUNTS INCLUDE 234 BEDS AT THE [facility] Last Admin: 01/15/19 09:39 Dose: 100 mg Tenofovir Disoproxil Fumarate (Viread) 300 mg PO DAILY COUNTS INCLUDE 234 BEDS AT THE [facility]; Protocol Last Admin: 01/15/19 09:38 Dose: 300 mg Trazodone HCl (Desyrel) 150 mg PO HS COUNTS INCLUDE 234 BEDS AT THE [facility] Last Admin: 01/15/19 21:39 Dose: 150 mg - Labs Labs: 01/14/19 04:35 01/14/19 04:35 PT 16.3 Seconds (9.8-13.1) H 01/11/19 14:20 INR 1.4 01/11/19 14:20 APTT 42.8 Seconds (25.6-37.1) H 01/11/19 14:20 - Constitutional Appears: Well, Non-toxic, No Acute Distress - Head Exam Head Exam: ATRAUMATIC, NORMAL INSPECTION, NORMOCEPHALIC - Eye Exam Eye Exam: EOMI, Normal appearance, PERRL Pupil Exam: NORMAL ACCOMODATION, PERRL - ENT Exam ENT Exam: Mucous Membranes Moist, Normal Exam - Neck Exam Neck Exam: Full ROM, Normal Inspection - Respiratory Exam Respiratory Exam: Clear to Ausculation Bilateral, NORMAL BREATHING PATTERN - Cardiovascular Exam Cardiovascular Exam: REGULAR RHYTHM, +S1, +S2 - GI/Abdominal Exam GI & Abdominal Exam: Soft, Normal Bowel Sounds - Extremities Exam Additional comments: LLE No pulse felt or heard by doppler on LLE (Dorsalis pedis/popliteal) femoral pulse intact LLE discoloration and cold to touch and tender RLE WNL - Back Exam Back Exam: NORMAL INSPECTION - Neurological Exam Neurological Exam: Alert, Awake, CN II-XII Intact, Normal Gait, Oriented x3 - Psychiatric Exam Psychiatric exam: Normal Affect, Normal Mood - Skin Skin Exam: Dry, Intact, Normal Color, Warm Assessment and Plan - Assessment and Plan (Free Text) Assessment: Assessment: 63 yo female with PMHx of HIV, DM2, HLD, PAD, peripheral neuropathy and Hodgkins Lymphoma was admitted for evaluation and management of severe PVD with intractable LLE pain. CTA 01/06/18: mild plaque in the abdominal aorta without significant stenosis. RLE shows SFA with severe stenosis at the origin and multiple areas of moderate to severe stenosis throughout the mid and distal segments, sever stenosis of the popliteal artery, stenosis of the peroneal artery at the mid and distal segments. LLE shows: SFA has been previously stented and has mild to severe disease in stent stenosis. Distal SFA is moderately stenotic. Moderate stenosis of popliteal artery. Anterior tibial artery is occluded after the proximal segment. Peroneal artery is occluded in the proximal segment with brief mid segment reconstitution then occludes again. Plan: Intractable LLE Pain Severe PAD - Hx of [place] angioplasty on 08/2018. - LLE pulse still not palpable; no change - LLE is darker than RLE - Chronic, Hx of PAD and stent placement, will need recatherization in LLE - Pain management: Tramadol for mild, Percocet for moderate and for severe. - Vascular Surgery consulted, Dr Bolaños - peripheral catheterization on 01/17 - NPO at midnight on 01/17 - held eliquis for now before procedure - rest of home meds resumed Non occlusive DVT of R popliteal vein - Diagnosed last week. - hold eliquis for now HIV, asymptomatic - controlled - Last CD4 908 on 10/27/18, - Viral load undetectable. - Continue home meds DM2 - Chronic - DC metformin before procedure for contrast use - ISS and hypoglycemia protocol Mild intermittent Asthma - Chronic, controlled - Home meds resumed. DVT prophylaxis and tx - Hold eliquis for now because procedure on Thursday. <Fuentes Simpson - Last Filed: 01/16/19 13:29> Objective - Vital Signs/Intake and Output Vital Signs (last 24 hours): Temp Pulse Resp BP Pulse Ox 98.0 F 99 H 18 103/67 93 L 01/16/19 11:56 01/16/19 11:56 01/16/19 11:56 01/16/19 11:56 01/16/19 11:56 - Medications Medications: Current Medications Albuterol (Ventolin Hfa 90 Mcg/Actuation (8 G)) 2 puff IH Q6 PRN PRN Reason: Shortness of Breath Albuterol Sulfate (Albuterol 0.083% Inhal Jammie (2.5 Mg/3 Ml) Ud) 2.5 mg IH RQ6 PRN PRN Reason: Shortness of Breath Apixaban (Eliquis) 5 mg PO Q12H [facility]; Protocol Last Admin: 01/13/19 18:24 Dose: 5 mg Atorvastatin Calcium (Lipitor) 20 mg PO QPM [facility] Last Admin: 01/15/19 18:00 Dose: 20 mg Darunavir (Prezista) 800 mg PO DAILY COUNTS INCLUDE 234 BEDS AT THE [facility]; Protocol Last Admin: 01/16/19 09:10 Dose: 800 mg Dextrose (Dextrose 50% Inj) 0 ml IV STAT PRN; Protocol PRN Reason: Hypoglycemia Protocol Dextrose (Glutose 15) 0 gm PO ONCE PRN; Protocol PRN Reason: Hypoglycemia Protocol Docusate Sodium (Colace) 100 mg PO BID COUNTS INCLUDE 234 BEDS AT [facility] Last Admin: 01/16/19 08:53 Dose: 100 mg Gabapentin (Neurontin) 400 mg PO Q8 COUNTS INCLUDE 234 BEDS AT [facility] Last Admin: 01/16/19 09:07 Dose: 400 mg Glipizide (Glucotrol) 10 mg PO BID COUNTS INCLUDE 234 BEDS AT [facility] Last Admin: 01/16/19 08:54 Dose: 10 mg Glucagon (Glucagen Diagnostic Kit) 0 mg IM STAT PRN; Protocol PRN Reason: Hypoglycemia Protocol Home Med (Patient's Own Medication) 1 unit PO DAILY COUNTS INCLUDE 234 BEDS AT THE [facility]; Protocol Last Admin: 01/16/19 09:09 Dose: 1 unit Insulin Detemir (Levemir) 15 units SC [facility] Insulin Human Lispro (Humalog) 0 units SC ACCU-CHECK COUNTS INCLUDE 234 BEDS AT THE [facility]; Protocol Last Admin: 01/16/19 12:28 Dose: 6 units Metformin HCl (Glucophage) 1,000 mg PO BID COUNTS INCLUDE 234 BEDS AT THE [facility] Morphine Sulfate (Morphine) 4 mg IVP Q4 PRN PRN Reason: Pain, severe (8-10) Last Admin: 01/16/19 01:05 Dose: 4 mg Multivitamins/Minerals (Therapeutic-M Tab) 1 tab PO DAILY COUNTS INCLUDE 234 BEDS AT THE [facility] Last Admin: 01/16/19 09:11 Dose: 1 tab [id number] Ethyl Esters (Lovaza) 2 gm PO BID COUNTS INCLUDE 234 BEDS AT THE [facility] Last Admin: 01/16/19 09:06 Dose: 2 gm Oxycodone/Acetaminophen (Percocet 5/325 Mg Tab) 2 tab PO Q6 PRN PRN Reason: Pain, moderate (4-7) Stop: 01/18/19 10:01 Last Admin: 01/16/19 09:47 Dose: 2 tab Oxycodone/Acetaminophen (Percocet 5/325 Mg Tab) 1 tab PO Q6 PRN PRN Reason: Pain, Mild (1-3) Stop: 01/18/19 08:58 Pantoprazole Sodium (Protonix Ec Tab) 40 mg PO DAILY COUNTS INCLUDE 234 BEDS AT THE [facility] Last Admin: 01/16/19 09:10 Dose: 40 mg Ritonavir (Norvir) 100 mg PO DAILY COUNTS INCLUDE 234 BEDS AT [facility] Last Admin: 01/16/19 09:09 Dose: 100 mg Sertraline HCl (Zoloft) 50 mg PO DAILY COUNTS INCLUDE 234 BEDS AT THE [facility] Last Admin: 01/16/19 09:12 Dose: 50 mg Sitagliptin Phosphate (Januvia) 100 mg PO DAILY COUNTS INCLUDE 234 BEDS AT THE [facility] Last Admin: 01/16/19 08:57 Dose: 100 mg Tenofovir Disoproxil Fumarate (Viread) 300 mg PO DAILY [facility]; Protocol Last Admin: 01/16/19 09:11 Dose: 300 mg Trazodone HCl (Desyrel) 150 mg PO [facility] Last Admin: 01/15/19 21:39 Dose: 150 mg - Labs Labs: 01/14/19 04:35 01/14/19 04:35 PT 16.3 Seconds (9.8-13.1) H 01/11/19 14:20 INR 1.4 01/11/19 14:20 APTT 42.8 Seconds (25.6-37.1) H 01/11/19 14:20 Attending/Attestation - Attestation I have personally seen and examined this patient.: Yes I have fully participated in the care of the patient.: Yes I have reviewed all pertinent clinical information, including history, physical exam and plan: Yes Notes (Text): 01/16/19 13:27 Patient seen and examined with resident. Case discussed and agreed with assessment and plan. Continue to have pain on left leg not completely relieved with pain medications.
[2019-01-16] MEDS: Insulin Lispro (humaLOG) 100 Units/ml Inj SC SCH ×4 (06:57→22:10)
[2019-01-16] MEDS: Omega-3-Acid Ethyl Esters 1 GM Cap PO SCH ×2 (09:06→17:03)
[2019-01-16] MEDS: Dolutegravir Sodium 50 mg Tab [Patient's Own Med] PO SCH (09:09)
[2019-01-16] MEDS: Pantoprazole 40 mg EC Tab PO SCH (09:10)
[2019-01-16] MEDS: Multivitamin With Minerals Tab PO SCH (09:11)
[2019-01-16] MEDS: Oxycodone/Acetaminophen 5/325 mg Tab PO PRN ×2 (09:47→18:12)
[2019-01-16] MEDS: Insulin Detemir 100 Units/ml Inj SC SCH (22:09)
[2019-01-17] MEDS: Morphine 4 MG/ML VIAL IVP PRN ×3 (04:56→22:33)
[2019-01-17 05:53] LABS: HEMOGLOBIN 9.7 g/dL (12.0-16.0); MEAN CELL VOLUME 86.8 fl (81.0-99.0); MEAN CORPUSCULAR HEMOGLOBIN 29.3 pg (27.0-31.0); MEAN CORPUSCULAR HGB CONC 33.7 g/dL (33.0-37.0); RBC 3.32 Mil/uL (3.80-5.20); RED CELL DISTRIBUTION WIDTH 14.1 % (11.5-14.5); WHITE BLOOD COUNT 8.9 K/uL (4.8-10.8)
[2019-01-17 06:05] LABS: BLOOD UREA NITROGEN 12 mg/dl (7-17); CALCIUM 9.6 mg/dL (8.4-10.2); GFR NON-AFRICAN AMERICAN > 60
[2019-01-17 06:26] LABS: PROTHROMBIN TIME 11.2 Seconds (9.8-13.1)
[2019-01-17] MEDS: Insulin Lispro (humaLOG) 100 Units/ml Inj SC SCH ×4 (06:37→22:41)
--- NOTE | 2019-01-17 08:54 | CP.PCM.PN ---
<Betzaida Gagnon - Last Filed: 01/17/19 16:37> Subjective - Date & Time of Evaluation Date of Evaluation: 01/17/19 Time of Evaluation: 09:10 - Subjective Subjective: Patient seen and examined this morning. Patient complaining of pain in left lower leg, and reports having to hang foot over bed to decrease pain. Denies f/c/n/v/diarrhea/cp or sob. Objective - Vital Signs/Intake and Output Vital Signs (last 24 hours): Temp Pulse Resp BP Pulse Ox 98 F 94 H 18 108/66 96 01/17/19 07:57 01/17/19 07:57 01/17/19 07:57 01/17/19 07:57 01/17/19 07:57 - Medications Medications: Current Medications Albuterol (Ventolin Hfa 90 Mcg/Actuation (8 G)) 2 puff IH Q6 PRN PRN Reason: Shortness of Breath Albuterol Sulfate (Albuterol 0.083% Inhal Jammie (2.5 Mg/3 Ml) Ud) 2.5 mg IH RQ6 PRN PRN Reason: Shortness of Breath Apixaban (Eliquis) 5 mg PO Q12H [facility]; Protocol Last Admin: 01/13/19 18:24 Dose: 5 mg Atorvastatin Calcium (Lipitor) 20 mg PO QPM [facility] Last Admin: 01/16/19 17:07 Dose: 20 mg Darunavir (Prezista) 800 mg PO DAILY [facility]; Protocol Last Admin: 01/16/19 09:10 Dose: 800 mg Dextrose (Dextrose 50% Inj) 0 ml IV STAT PRN; Protocol PRN Reason: Hypoglycemia Protocol Dextrose (Glutose 15) 0 gm PO ONCE PRN; Protocol PRN Reason: Hypoglycemia Protocol Docusate Sodium (Colace) 100 mg PO BID [facility] Last Admin: 01/16/19 17:02 Dose: 100 mg Gabapentin (Neurontin) 400 mg PO Q8 [facility] Last Admin: 01/17/19 01:44 Dose: Not Given Glipizide (Glucotrol) 10 mg PO BID [facility] Last Admin: 01/16/19 17:01 Dose: 10 mg Glucagon (Glucagen Diagnostic Kit) 0 mg IM STAT PRN; Protocol PRN Reason: Hypoglycemia Protocol Home Med (Patient's Own Medication) 1 unit PO DAILY [facility]; Protocol Last Admin: 01/16/19 09:09 Dose: 1 unit Insulin Detemir (Levemir) 15 units SC [facility] Last Admin: 01/16/19 22:09 Dose: 15 units Insulin Human Lispro (Humalog) 0 units SC ACCU-CHECK [facility]; Protocol Last Admin: 01/17/19 06:37 Dose: Not Given Lactulose (Enulose) 20 gm PO DAILY PRN PRN Reason: Constipation Morphine Sulfate (Morphine) 4 mg IVP Q4 PRN PRN Reason: Pain, severe (8-10) Last Admin: 01/17/19 04:56 Dose: 4 mg Multivitamins/Minerals (Therapeutic-M Tab) 1 tab PO DAILY [facility] Last Admin: 01/16/19 09:11 Dose: 1 tab [id number] Ethyl Esters (Lovaza) 2 gm PO BID [facility] Last Admin: 01/16/19 17:03 Dose: 2 gm Oxycodone/Acetaminophen (Percocet 5/325 Mg Tab) 2 tab PO Q6 PRN PRN Reason: Pain, moderate (4-7) Stop: 01/18/19 10:01 Last Admin: 01/16/19 18:12 Dose: 2 tab Oxycodone/Acetaminophen (Percocet 5/325 Mg Tab) 1 tab PO Q6 PRN PRN Reason: Pain, Mild (1-3) Stop: 01/18/19 08:58 Pantoprazole Sodium (Protonix Ec Tab) 40 mg PO DAILY [facility] Last Admin: 01/16/19 09:10 Dose: 40 mg Ritonavir (Norvir) 100 mg PO DAILY [facility] Last Admin: 01/16/19 09:09 Dose: 100 mg Sertraline HCl (Zoloft) 50 mg PO DAILY [facility] Last Admin: 01/16/19 09:12 Dose: 50 mg Sitagliptin Phosphate (Januvia) 100 mg PO DAILY [facility] Last Admin: 01/16/19 08:57 Dose: 100 mg Tenofovir Disoproxil Fumarate (Viread) 300 mg PO DAILY [facility]; Protocol Last Admin: 01/16/19 09:11 Dose: 300 mg Trazodone HCl (Desyrel) 150 mg PO [facility] Last Admin: 01/16/19 22:08 Dose: 150 mg - Labs Labs: 01/17/19 05:20 01/17/19 05:20 PT 11.2 Seconds (9.8-13.1) 01/17/19 05:20 INR 1.0 01/17/19 05:20 APTT 42.8 Seconds (25.6-37.1) H 01/11/19 14:20 - Constitutional Appears: Non-toxic - Head Exam Head Exam: ATRAUMATIC, NORMAL INSPECTION - Eye Exam Eye Exam: EOMI - ENT Exam ENT Exam: Mucous Membranes Moist - Respiratory Exam Respiratory Exam: Clear to Ausculation Bilateral. absent: Wheezes, Respiratory Distress, Stridor - Cardiovascular Exam Cardiovascular Exam: REGULAR RHYTHM, +S1, +S2 - GI/Abdominal Exam GI & Abdominal Exam: Soft, Normal Bowel Sounds. absent: Guarding, Rigid, Tenderness - Extremities Exam Additional comments: dorsal aspect of left foot hyperpigmented (greater in Lt ft than rt) severely tender to palpation; tenderness to palpation of left calf; right some hyperpigme ntation of right foot; right calf nontender - Neurological Exam Neurological Exam: Alert, Awake, Oriented x3 - Psychiatric Exam Psychiatric exam: Normal Mood Assessment and Plan - Assessment and Plan (Free Text) Assessment: 63 yo female with PMHx of HIV, DM2, HLD, PAD, peripheral neuropathy and Hodgkins Lymphoma was admitted for evaluation and management of severe PVD with intractable LLE pain. 1. Intractable LLE Pain likely due to Severe PAD -Patient transferred to [facility] for revascularization as recommended by Dr. Bolaños - Hx of [facility] angioplasty in 08/2018. - C/w Tramadol for mild, Percocet for moderate and for severe. - Cont. to hold eliquis 2. Non occlusive DVT of R popliteal vein - Cont. to hold eliquis 3. HIV, asymptomatic, controlled - Last CD4 872 on - Viral load undetectable. - Continue home meds 4. DM2 ( Chronic) - Metformin on hold - ISS and hypoglycemia protocol -FU A1c -Last A1c 10/2018- 8.2 5.Mild intermittent Asthma( Chronic, controlled) - Home meds resumed. 6. DVT prophylaxis - Hold eliquis for now <SimpsonQuincy wallaceFuentes D - Last Filed: 01/17/19 17:13> Objective - Vital Signs/Intake and Output Vital Signs (last 24 hours): Temp Pulse Resp BP Pulse Ox 98 F 94 H 18 108/66 96 01/17/19 07:57 01/17/19 09:00 01/17/19 07:57 01/17/19 07:57 01/17/19 07:57 - Medications Medications: Current Medications Albuterol (Ventolin Hfa 90 Mcg/Actuation (8 G)) 2 puff IH Q6 PRN PRN Reason: Shortness of Breath Albuterol Sulfate (Albuterol 0.083% Inhal Jammie (2.5 Mg/3 Ml) Ud) 2.5 mg IH RQ6 PRN PRN Reason: Shortness of Breath Apixaban (Eliquis) 5 mg PO Q12H [facility]; Protocol Last Admin: 01/13/19 18:24 Dose: 5 mg Atorvastatin Calcium (Lipitor) 20 mg PO QPM [facility] Last Admin: 01/16/19 17:07 Dose: 20 mg Dextrose (Dextrose 50% Inj) 0 ml IV STAT PRN; Protocol PRN Reason: Hypoglycemia Protocol Dextrose (Glutose 15) 0 gm PO ONCE PRN; Protocol PRN Reason: Hypoglycemia Protocol Docusate Sodium (Colace) 100 mg PO BID [facility] Last Admin: 01/17/19 09:10 Dose: Not Given Gabapentin (Neurontin) 400 mg PO Q8 [facility] Last Admin: 01/17/19 09:10 Dose: Not Given Glipizide (Glucotrol) 10 mg PO BID [facility] Last Admin: 01/17/19 09:10 Dose: Not Given Glucagon (Glucagen Diagnostic Kit) 0 mg IM STAT PRN; Protocol PRN Reason: Hypoglycemia Protocol Home Med (Patient's Own Medication) 1 unit PO DAILY [facility]; Protocol Last Admin: 01/17/19 09:11 Dose: Not Given Insulin Detemir (Levemir) 15 units SC [facility] Last Admin: 01/16/19 22:09 Dose: 15 units Insulin Human Lispro (Humalog) 0 units SC ACCU-CHECK [facility]; Protocol Last Admin: 01/17/19 13:14 Dose: Not Given Lactulose (Enulose) 20 gm PO DAILY PRN PRN Reason: Constipation Morphine Sulfate (Morphine) 4 mg IVP Q4 PRN PRN Reason: Pain, severe (8-10) Last Admin: 01/17/19 09:08 Dose: 4 mg Multivitamins/Minerals (Therapeutic-M Tab) 1 tab PO DAILY [facility] Last Admin: 04/01/19 09:11 Dose: Not Given [id number] Ethyl Esters (Lovaza) 2 gm PO BID [facility] Last Admin: 01/17/19 09:10 Dose: Not Given Oxycodone/Acetaminophen (Percocet 5/325 Mg Tab) 2 tab PO Q6 PRN PRN Reason: Pain, moderate (4-7) Stop: 01/18/19 10:01 Last Admin: 01/16/19 18:12 Dose: 2 tab Oxycodone/Acetaminophen (Percocet 5/325 Mg Tab) 1 tab PO Q6 PRN PRN Reason: Pain, Mild (1-3) Stop: 01/18/19 08:58 Pantoprazole Sodium (Protonix Ec Tab) 40 mg PO DAILY [facility] Last Admin: 01/17/19 09:11 Dose: Not Given Sertraline HCl (Zoloft) 50 mg PO DAILY [facility] Last Admin: 01/17/19 09:12 Dose: Not Given Sitagliptin Phosphate (Januvia) 100 mg PO DAILY [facility] Last Admin: 01/17/19 09:10 Dose: Not Given Trazodone HCl (Desyrel) 150 mg PO HS [facility] Last Admin: 01/16/19 22:08 Dose: 150 mg - Labs Labs: 01/17/19 05:20 01/17/19 05:20 PT 11.2 Seconds (9.8-13.1) 01/17/19 05:20 INR 1.0 01/17/19 05:20 APTT 42.8 Seconds (25.6-37.1) H 01/11/19 14:20 Attending/Attestation - Attestation I have personally seen and examined this patient.: Yes I have fully participated in the care of the patient.: Yes I have reviewed all pertinent clinical information, including history, physical exam and plan: Yes Notes (Text): 01/17/19 17:03 Patient seen and examined with resident. Case discussed and agreed with assessment and plan.
[2019-01-17] MEDS: Omega-3-Acid Ethyl Esters 1 GM Cap PO SCH ×2 (09:10→17:30)
[2019-01-17] MEDS: Pantoprazole 40 mg EC Tab PO SCH (09:11)
[2019-01-17] MEDS: Dolutegravir Sodium 50 mg Tab [Patient's Own Med] PO SCH (09:11)
[2019-01-17] MEDS: Multivitamin With Minerals Tab PO SCH (09:11)
--- NOTE | 2019-01-17 18:35 | CP.PCM.PN ---
Subjective - Date & Time of Evaluation Date of Evaluation: 01/17/19 Time of Evaluation: 18:26 - Subjective Subjective: Vladislav Montes, PGY-1, Cardiology Progress Note for Dr. Bolaños Patient seen and evaluated at bedside. Patient had no acute overnight events. Patient had peripheral catheterization today which patient tolerated well. Patient reported lower extremity pain during the procedure but reported improvement in pain post procedure. Objective - Vital Signs/Intake and Output Vital Signs (last 24 hours): Temp Pulse Resp BP Pulse Ox 98 F 94 H 18 108/66 96 01/17/19 07:57 01/17/19 09:00 01/17/19 07:57 01/17/19 07:57 01/17/19 07:57 - Medications Medications: Current Medications Albuterol (Ventolin Hfa 90 Mcg/Actuation (8 G)) 2 puff IH Q6 PRN PRN Reason: Shortness of Breath Albuterol Sulfate (Albuterol 0.083% Inhal Jammie (2.5 Mg/3 Ml) Ud) 2.5 mg IH RQ6 PRN PRN Reason: Shortness of Breath Apixaban (Eliquis) 5 mg PO Q12H [facility]; Protocol Last Admin: 01/13/19 18:24 Dose: 5 mg Atorvastatin Calcium (Lipitor) 20 mg PO QPM [facility] Last Admin: 01/17/19 17:30 Dose: Not Given Dextrose (Dextrose 50% Inj) 0 ml IV STAT PRN; Protocol PRN Reason: Hypoglycemia Protocol Dextrose (Glutose 15) 0 gm PO ONCE PRN; Protocol PRN Reason: Hypoglycemia Protocol Docusate Sodium (Colace) 100 mg PO BID [facility] Last Admin: 01/17/19 17:29 Dose: Not Given Gabapentin (Neurontin) 400 mg PO Q8 [facility] Last Admin: 01/17/19 17:31 Dose: Not Given Glipizide (Glucotrol) 10 mg PO BID [facility] Last Admin: 01/17/19 17:29 Dose: Not Given Glucagon (Glucagen Diagnostic Kit) 0 mg IM STAT PRN; Protocol PRN Reason: Hypoglycemia Protocol Home Med (Patient's Own Medication) 1 unit PO DAILY [facility]; Protocol Last Admin: 01/17/19 09:11 Dose: Not Given Insulin Detemir (Levemir) 15 units SC HS [facility] Last Admin: 01/16/19 22:09 Dose: 15 units Insulin Human Lispro (Humalog) 0 units SC ACCU-CHECK [facility]; Protocol Last Admin: 01/17/19 17:29 Dose: Not Given Lactulose (Enulose) 20 gm PO DAILY PRN PRN Reason: Constipation Morphine Sulfate (Morphine) 4 mg IVP Q4 PRN PRN Reason: Pain, severe (8-10) Last Admin: 01/17/19 09:08 Dose: 4 mg Multivitamins/Minerals (Therapeutic-M Tab) 1 tab PO DAILY [facility] Last Admin: 01/17/19 09:11 Dose: Not Given [id number] Ethyl Esters (Lovaza) 2 gm PO BID [facility] Last Admin: 01/17/19 17:30 Dose: Not Given Oxycodone/Acetaminophen (Percocet 5/325 Mg Tab) 2 tab PO Q6 PRN PRN Reason: Pain, moderate (4-7) Stop: 01/18/19 10:01 Last Admin: 01/16/19 18:12 Dose: 2 tab Oxycodone/Acetaminophen (Percocet 5/325 Mg Tab) 1 tab PO Q6 PRN PRN Reason: Pain, Mild (1-3) Stop: 01/20/19 08:58 Pantoprazole Sodium (Protonix Ec Tab) 40 mg PO DAILY [facility] Last Admin: 01/17/19 09:11 Dose: Not Given Sertraline HCl (Zoloft) 50 mg PO DAILY [facility] Last Admin: 01/17/19 09:12 Dose: Not Given Sitagliptin Phosphate (Januvia) 100 mg PO DAILY [facility] Last Admin: 01/17/19 09:10 Dose: Not Given Trazodone HCl (Desyrel) 150 mg PO [facility] Last Admin: 01/16/19 22:08 Dose: 150 mg - Labs Labs: 01/17/19 05:20 01/17/19 05:20 PT 11.2 Seconds (9.8-13.1) 01/17/19 05:20 INR 1.0 01/17/19 05:20 APTT 42.8 Seconds (25.6-37.1) H 01/11/19 14:20 - Constitutional Appears: Well, Non-toxic, In Acute Distress - Head Exam Head Exam: ATRAUMATIC, NORMAL INSPECTION, NORMOCEPHALIC - Eye Exam Eye Exam: EOMI, PERRL - ENT Exam ENT Exam: Mucous Membranes Moist - Respiratory Exam Respiratory Exam: Clear to Auscultation Bilateral, NORMAL BREATHING PATTERN - Cardiovascular Exam Cardiovascular Exam: REGULAR RHYTHM, RRR, +S1, +S2 - GI/Abdominal Exam GI & Abdominal Exam: Normal Bowel Sounds, Soft. absent: Tenderness - Extremities Exam Extremities exam: Positive for: full ROM, normal inspection, tenderness (bilateral lower extremities). Negative for: pedal edema - Neurological Exam Neurological exam: Alert, CN II-XII Intact, Oriented x3 - Skin Skin Exam: Dry, Intact Assessment and Plan (1) PVD (peripheral vascular disease) Assessment & Plan: CTA of bilateral lower extremities 01/06/19: mild plaque in the abdominal aorta without significant stenosis. Right lower extremity shows SFA with severe stenosis at the origin and multiple areas of moderate to severe stenosis throughout the mid and distal segements, sever stenosis of the popliteal artery, stenosis of the peroneal artery at the mid and distal segments. Left lower extremity shows SFA has been previously stented and has mild to severe disease in stent stenosis. Distal SFA is moderately stenotic. There is moderate stenosis of popliteal artery. Anterior tibial artery is occluded after the proximal segment. Peroneal artery is occluded in the proximal segment with brief mid segment reconstitution then occludes again. Peripheral catheterization: shows diffuse neointimal hyperplasia, vasospasms, calcifications, reocclusion of stent. [place] atherectomy performed with reperfusion of left lower extremity Continue lipitor Will restart eliquis tomorrow. Status: Acute (2) Deep vein thrombosis (DVT) of popliteal vein of right lower extremity Assessment & Plan: Lower extremity ultrasound 01/04/19: nonocclusive eccentric thrombus in the right popliteal vein. Possible chronic venous thrombus. Cannot rule out acute venous thrombosis though appearance is atypical. Hold eliquis Status: Acute (3) Diabetes mellitus Assessment & Plan: HgbA1c from 11/17/18: 8.2 Would recommend restarting metformin Continue glipizide, sliding scale insulin Status: Acute (4) COPD (chronic obstructive pulmonary disease) Assessment & Plan: Continue with nebulizers Status: Chronic
[2019-01-17] MEDS ORDERED: Nitroglycerin 50mg in D5W 50 MG/250 ML BOTTLE IV ONE (20:26)
[2019-01-17] MEDS: Insulin Detemir 100 Units/ml Inj SC SCH (21:39)
[2019-01-17 23:50] LABS: SQUAMOUS EPITHIAL 1 /hpf (0-5); URINE BACTERIA RARE (<OCC); URINE BILIRUBIN NEGATIVE (NEGATIVE); URINE BLOOD NEGATIVE (NEGATIVE); URINE CLARITY CLEAR (Clear); URINE COLOR YELLOW (YELLOW); URINE GLUCOSE (UA) 50 mg/dL (NEGATIVE); URINE LEUKOCYTE ESTERASE NEG Leu/uL (Negative); URINE PROTEIN 100 mg/dL (NEGATIVE); URINE UROBILINOGEN 0.2-1.0 mg/dL (0.2-1.0)
[2019-01-18] MEDS: Morphine 4 MG/ML VIAL IVP PRN ×5 (01:47→17:15)
[2019-01-18 05:34] LABS: BASO % 0.2 % (0.0-2.0); EOS # 0.4 K/uL (0.0-0.7); EOS % 3.7 % (0.0-4.0); HEMOGLOBIN 9.2 g/dL (12.0-16.0); LYMPH # 2.2 K/uL (1.0-4.3); MEAN CELL VOLUME 86.5 fl (81.0-99.0); MEAN CORPUSCULAR HEMOGLOBIN 28.9 pg (27.0-31.0); MEAN CORPUSCULAR HGB CONC 33.5 g/dL (33.0-37.0); MEAN PLATELET VOLUME 7.3 fl (7.2-11.7); MONO # 0.7 K/uL (0.0-0.8); MONO % 6.8 % (0.0-10.0); NEUT # 7.1 K/uL (1.8-7.0); NEUT % 68.3 % (50.0-75.0); RBC 3.16 Mil/uL (3.80-5.20); RED CELL DISTRIBUTION WIDTH 14.1 % (11.5-14.5); WHITE BLOOD COUNT 10.5 K/uL (4.8-10.8)
[2019-01-18 05:51] LABS: BLOOD UREA NITROGEN 11 mg/dl (7-17); CALCIUM 9.5 mg/dL (8.4-10.2); GFR NON-AFRICAN AMERICAN > 60
[2019-01-18] MEDS: Pantoprazole 40 mg EC Tab PO SCH (08:51)
[2019-01-18] MEDS: Omega-3-Acid Ethyl Esters 1 GM Cap PO SCH ×2 (08:53→17:13)
[2019-01-18] MEDS: Insulin Lispro (humaLOG) 100 Units/ml Inj SC SCH ×4 (08:53→22:26)
[2019-01-18] MEDS: Multivitamin With Minerals Tab PO SCH (08:54)
[2019-01-18] MEDS: Dolutegravir Sodium 50 mg Tab [Patient's Own Med] PO SCH (08:54)
[2019-01-18] MEDS ORDERED: Aspirin 325 mg EC Tablets PO SCH (09:00)
--- NOTE | 2019-01-18 13:04 | CP.PCM.PN ---
Subjective - Date & Time of Evaluation Date of Evaluation: 01/18/19 Time of Evaluation: 13:02 - Subjective Subjective: Vladislav Montes, PGY-1, Cardiology Progress Note for Dr. Bolaños Patient seen and evaluated at bedside. Patient had no acute overnight events. Patient reports left lower extremity pain though improved and right lower extremity pain at site of catheter insertion Objective - Vital Signs/Intake and Output Vital Signs (last 24 hours): Temp Pulse Resp BP Pulse Ox 98.0 F 100 H 18 131/71 97 01/18/19 08:00 01/18/19 09:00 01/18/19 08:00 01/18/19 08:00 01/18/19 08:00 - Medications Medications: Current Medications Albuterol (Ventolin Hfa 90 Mcg/Actuation (8 G)) 2 puff IH Q6 PRN PRN Reason: Shortness of Breath Albuterol Sulfate (Albuterol 0.083% Inhal Jammie (2.5 Mg/3 Ml) Ud) 2.5 mg IH RQ6 PRN PRN Reason: Shortness of Breath Apixaban (Eliquis) 5 mg PO BID [facility]; Protocol Last Admin: 01/18/19 09:33 Dose: 5 mg Atorvastatin Calcium (Lipitor) 20 mg PO QPM [facility] Last Admin: 01/17/19 17:30 Dose: Not Given Dextrose (Dextrose 50% Inj) 0 ml IV STAT PRN; Protocol PRN Reason: Hypoglycemia Protocol Dextrose (Glutose 15) 0 gm PO ONCE PRN; Protocol PRN Reason: Hypoglycemia Protocol Docusate Sodium (Colace) 100 mg PO BID [facility] Last Admin: 01/18/19 08:52 Dose: 100 mg Gabapentin (Neurontin) 400 mg PO Q8 [facility] Last Admin: 01/18/19 08:53 Dose: 400 mg Glipizide (Glucotrol) 10 mg PO BID [facility] Last Admin: 01/18/19 08:52 Dose: 10 mg Glucagon (Glucagen Diagnostic Kit) 0 mg IM STAT PRN; Protocol PRN Reason: Hypoglycemia Protocol Home Med (Patient's Own Medication) 1 unit PO DAILY [facility]; Protocol Last Admin: 01/18/19 08:54 Dose: 1 unit Nitroglycerin/Dextrose (Nitroglycerin 50 Mg/250 Ml D5w) 50 mg in 250 mls @ 3 mls/hr IV .Q24H ONE Stop: 01/18/19 20:25 Last Admin: 01/17/19 21:05 Dose: 3 mls/hr Insulin Detemir (Levemir) 15 units SC [facility] Last Admin: 01/17/19 21:39 Dose: 15 units Insulin Human Lispro (Humalog) 0 units SC ACCU-CHECK [facility]; Protocol Last Admin: 01/18/19 08:53 Dose: 2 units Lactulose (Enulose) 20 gm PO DAILY PRN PRN Reason: Constipation Morphine Sulfate (Morphine) 4 mg IVP Q4 PRN PRN Reason: Pain, severe (8-10) Last Admin: 01/18/19 09:32 Dose: 4 mg Multivitamins/Minerals (Therapeutic-M Tab) 1 tab PO DAILY [facility] Last Admin: 01/18/19 08:54 Dose: 1 tab [id number] Ethyl Esters (Lovaza) 2 gm PO BID [facility] Last Admin: 01/18/19 08:53 Dose: 2 gm Oxycodone/Acetaminophen (Percocet 5/325 Mg Tab) 1 tab PO Q6 PRN PRN Reason: Pain, Mild (1-3) Stop: 01/20/19 08:58 Pantoprazole Sodium (Protonix Ec Tab) 40 mg PO DAILY [facility] Last Admin: 01/18/19 08:51 Dose: 40 mg Sertraline HCl (Zoloft) 50 mg PO DAILY [facility] Last Admin: 01/18/19 08:54 Dose: 50 mg Sitagliptin Phosphate (Januvia) 100 mg PO DAILY [facility] Last Admin: 01/18/19 08:52 Dose: 100 mg Ticagrelor (Brilinta) 90 mg PO BID [facility] Last Admin: 01/18/19 08:51 Dose: 90 mg Trazodone HCl (Desyrel) 150 mg PO [facility] Last Admin: 01/17/19 21:38 Dose: 150 mg - Labs Labs: 01/18/19 05:21 01/18/19 05:21 PT 11.2 Seconds (9.8-13.1) 01/17/19 05:20 INR 1.0 01/17/19 05:20 APTT 42.8 Seconds (25.6-37.1) H 01/11/19 14:20 - Constitutional Appears: Well, Non-toxic, In Acute Distress - Head Exam Head Exam: ATRAUMATIC, NORMAL INSPECTION, NORMOCEPHALIC - Eye Exam Eye Exam: EOMI, PERRL - ENT Exam ENT Exam: Mucous Membranes Moist - Respiratory Exam Respiratory Exam: Clear to Auscultation Bilateral, NORMAL BREATHING PATTERN - Cardiovascular Exam Cardiovascular Exam: REGULAR RHYTHM, RRR, +S1, +S2 - GI/Abdominal Exam GI & Abdominal Exam: Normal Bowel Sounds, Soft. absent: Tenderness - Extremities Exam Extremities exam: Positive for: full ROM, normal inspection, tenderness (bilateral lower extremities). Negative for: pedal edema, hematoma - Neurological Exam Neurological exam: Alert, CN II-XII Intact, Oriented x3 - Skin Skin Exam: Dry, Intact Assessment and Plan (1) PVD (peripheral vascular disease) Assessment & Plan: CTA of bilateral lower extremities 01/06/19: mild plaque in the abdominal aorta without significant stenosis. Right lower extremity shows SFA with severe stenosis at the origin and multiple areas of moderate to severe stenosis throughout the mid and distal segements, sever stenosis of the popliteal artery, stenosis of the peroneal artery at the mid and distal segments. Left lower extremity shows SFA has been previously stented and has mild to severe disease in stent stenosis. Distal SFA is moderately stenotic. There is moderate stenosis of popliteal artery. Anterior tibial artery is occluded after the proximal segment. Peroneal artery is occluded in the proximal segment with brief mid segment reconstitution then occludes again. Peripheral catheterization: shows diffuse neointimal hyperplasia, vasospasms, calcifications, reocclusion of stent. [place] atherectomy performed with reperfusion of left lower extremity Continue lipitor, omega 3 acid, nitroglycerin drip Restarted eliquis. Started brilinta Status: Acute (2) Deep vein thrombosis (DVT) of popliteal vein of right lower extremity Assessment & Plan: Lower extremity ultrasound 01/04/19: nonocclusive eccentric thrombus in the right popliteal vein. Possible chronic venous thrombus. Cannot rule out acute venous thrombosis though appearance is atypical. Restart eliquis Status: Acute (3) Diabetes mellitus Assessment & Plan: HgbA1c: 8.7 Continue glipizide, januvia, sliding scale insulin Status: Acute (4) COPD (chronic obstructive pulmonary disease) Assessment & Plan: Continue with nebulizers Status: Chronic
--- NOTE | 2019-01-18 17:15 | CP.PCM.PN ---
<Betzaida Gagnon - Last Filed: 01/18/19 17:50> Subjective - Date & Time of Evaluation Date of Evaluation: 01/18/19 Time of Evaluation: 10:47 - Subjective Subjective: Patient seen and examined this morning POD 1 sp successful revascularization of left lower peg. Patient still complaining of pain in left lower leg, 07/28. Ean es f/c/n/v/diarrhea/cp or sob. Objective - Vital Signs/Intake and Output Vital Signs (last 24 hours): Temp Pulse Resp BP Pulse Ox 97.6 F 77 18 112/73 97 01/18/19 16:03 01/18/19 16:03 01/18/19 16:03 01/18/19 16:03 01/18/19 16:03 - Medications Medications: Current Medications Albuterol (Ventolin Hfa 90 Mcg/Actuation (8 G)) 2 puff IH Q6 PRN PRN Reason: Shortness of Breath Albuterol Sulfate (Albuterol 0.083% Inhal Jammie (2.5 Mg/3 Ml) Ud) 2.5 mg IH RQ6 PRN PRN Reason: Shortness of Breath Apixaban (Eliquis) 5 mg PO BID [facility]; Protocol Last Admin: 01/18/19 09:33 Dose: 5 mg Atorvastatin Calcium (Lipitor) 20 mg PO QPM [facility] Last Admin: 01/17/19 17:30 Dose: Not Given Dextrose (Dextrose 50% Inj) 0 ml IV STAT PRN; Protocol PRN Reason: Hypoglycemia Protocol Dextrose (Glutose 15) 0 gm PO ONCE PRN; Protocol PRN Reason: Hypoglycemia Protocol Docusate Sodium (Colace) 100 mg PO BID [facility] Last Admin: 01/18/19 08:52 Dose: 100 mg Gabapentin (Neurontin) 400 mg PO Q8 [facility] Last Admin: 01/18/19 08:53 Dose: 400 mg Glipizide (Glucotrol) 10 mg PO BID [facility] Last Admin: 01/18/19 08:52 Dose: 10 mg Glucagon (Glucagen Diagnostic Kit) 0 mg IM STAT PRN; Protocol PRN Reason: Hypoglycemia Protocol Home Med (Patient's Own Medication) 1 unit PO DAILY [facility]; Protocol Last Admin: 01/18/19 08:54 Dose: 1 unit Nitroglycerin/Dextrose (Nitroglycerin 50 Mg/250 Ml D5w) 50 mg in 250 mls @ 3 mls/hr IV .Q24H ONE Stop: 01/18/19 20:25 Last Admin: 01/17/19 21:05 Dose: 3 mls/hr Insulin Detemir (Levemir) 15 units SC [facility] Last Admin: 01/17/19 21:39 Dose: 15 units Insulin Human Lispro (Humalog) 0 units SC ACCU-CHECK [facility]; Protocol Last Admin: 01/18/19 13:34 Dose: 4 units Lactulose (Enulose) 20 gm PO DAILY PRN PRN Reason: Constipation Morphine Sulfate (Morphine) 4 mg IVP Q4 PRN PRN Reason: Pain, severe (8-10) Last Admin: 01/18/19 13:33 Dose: 4 mg Multivitamins/Minerals (Therapeutic-M Tab) 1 tab PO DAILY [facility] Last Admin: 01/18/19 08:54 Dose: 1 tab [id number]-[id number] Ethyl Esters (Lovaza) 2 gm PO BID [facility] Last Admin: 01/18/19 08:53 Dose: 2 gm Oxycodone/Acetaminophen (Percocet 5/325 Mg Tab) 1 tab PO Q6 PRN PRN Reason: Pain, Mild (1-3) Stop: 01/20/19 08:58 Pantoprazole Sodium (Protonix Ec Tab) 40 mg PO DAILY [facility] Last Admin: 01/18/19 08:51 Dose: 40 mg Sertraline HCl (Zoloft) 50 mg PO DAILY [facility] Last Admin: 01/18/19 08:54 Dose: 50 mg Sitagliptin Phosphate (Januvia) 100 mg PO DAILY [facility] Last Admin: 01/18/19 08:52 Dose: 100 mg Ticagrelor (Brilinta) 90 mg PO BID [facility] Last Admin: 01/18/19 08:51 Dose: 90 mg Trazodone HCl (Desyrel) 150 mg PO [facility] Last Admin: 01/17/19 21:38 Dose: 150 mg - Labs Labs: 01/18/19 05:21 01/18/19 05:21 PT 11.2 Seconds (9.8-13.1) 01/17/19 05:20 INR 1.0 01/17/19 05:20 APTT 42.8 Seconds (25.6-37.1) H 01/11/19 14:20 - Constitutional Appears: Non-toxic - Head Exam Head Exam: ATRAUMATIC, NORMAL INSPECTION - Eye Exam Eye Exam: EOMI - ENT Exam ENT Exam: Mucous Membranes Moist - Respiratory Exam Respiratory Exam: NORMAL BREATHING PATTERN - Cardiovascular Exam Cardiovascular Exam: REGULAR RHYTHM, +S1, +S2 - GI/Abdominal Exam GI & Abdominal Exam: Soft, Normal Bowel Sounds. absent: Guarding, Rigid, T enderness Additional comments: dressing at right groin c/d/i - Extremities Exam Additional comments: left lower leg extremely tender with hyperpigmentation of dorsal aspect of foot; calf tenderness elicited; rt lower leg- minimal calf tenderness compared to left lower leg - Neurological Exam Neurological Exam: Alert, Awake, Oriented x3 Assessment and Plan - Assessment and Plan (Free Text) Assessment: 63 yo female with PMHx of HIV, DM2, HLD, PAD, peripheral neuropathy and Hodgkins Lymphoma was admitted for evaluation and management of severe PVD with intractable LLE pain. 1. Intractable LLE Pain likely due to Severe PAD -POD1 s/p successful revascularization of left superficial femoral artery in- stent restenosis with use of LX [employer] atherectomy device by Dr. Bolaños - Hx of [facility] angioplasty in 08/2018. - C/w Tramadol for mild, and morphine for mod/severe pain - Eliquis 5mg PO BID -Started Brillinta 90mg PO BID 2. Non occlusive DVT of R popliteal vein - Eliquis 5mg PO BID 3. HIV, asymptomatic, controlled - Last CD4 872 on - Viral load undetectable. - Continue home meds 4. DM2 ( Chronic) - Metformin on hold - ISS and hypoglycemia protocol -FU A1c -Last A1c 10/2018- 8.2 5.Mild intermittent Asthma( Chronic, controlled) - Home meds resumed. 6. DVT prophylaxis - Eliquis 5mg PO BID <SimpsonQuincy wallaceFuentes D - Last Filed: 01/18/19 18:04> Objective - Vital Signs/Intake and Output Vital Signs (last 24 hours): Temp Pulse Resp BP Pulse Ox 97.6 F 77 18 112/73 97 01/18/19 16:03 01/18/19 16:03 01/18/19 16:03 01/18/19 16:03 01/18/19 16:03 - Medications Medications: Current Medications Albuterol (Ventolin Hfa 90 Mcg/Actuation (8 G)) 2 puff IH Q6 PRN PRN Reason: Shortness of Breath Albuterol Sulfate (Albuterol 0.083% Inhal Jammie (2.5 Mg/3 Ml) Ud) 2.5 mg IH RQ6 PRN PRN Reason: Shortness of Breath Apixaban (Eliquis) 5 mg PO BID [facility]; Protocol Last Admin: 01/18/19 17:13 Dose: 5 mg Atorvastatin Calcium (Lipitor) 20 mg PO QPM [facility] Last Admin: 01/18/19 17:15 Dose: 20 mg Dextrose (Dextrose 50% Inj) 0 ml IV STAT PRN; Protocol PRN Reason: Hypoglycemia Protocol Dextrose (Glutose 15) 0 gm PO ONCE PRN; Protocol PRN Reason: Hypoglycemia Protocol Docusate Sodium (Colace) 100 mg PO BID [facility] Last Admin: 01/18/19 17:14 Dose: 100 mg Gabapentin (Neurontin) 400 mg PO Q8 [facility] Last Admin: 01/18/19 17:13 Dose: 400 mg Glipizide (Glucotrol) 10 mg PO BID [facility] Last Admin: 01/18/19 17:14 Dose: 10 mg Glucagon (Glucagen Diagnostic Kit) 0 mg IM STAT PRN; Protocol PRN Reason: Hypoglycemia Protocol Home Med (Patient's Own Medication) 1 unit PO DAILY [facility]; Protocol Last Admin: 01/18/19 08:54 Dose: 1 unit Hydromorphone HCl (Dilaudid) 1 mg IVP Q3 [facility] Nitroglycerin/Dextrose (Nitroglycerin 50 Mg/250 Ml D5w) 50 mg in 250 mls @ 3 mls/hr IV .Q24H ONE Stop: 01/18/19 20:25 Last Admin: 01/17/19 21:05 Dose: 3 mls/hr Insulin Detemir (Levemir) 15 units SC [facility] Last Admin: 01/17/19 21:39 Dose: 15 units Insulin Human Lispro (Humalog) 0 units SC ACCU-CHECK [facility]; Protocol Last Admin: 01/18/19 17:15 Dose: 2 units Lactulose (Enulose) 20 gm PO DAILY PRN PRN Reason: Constipation Multivitamins/Minerals (Therapeutic-M Tab) 1 tab PO DAILY [facility] Last Admin: 01/18/19 08:54 Dose: 1 tab [id number] Ethyl Esters (Lovaza) 2 gm PO BID [facility] Last Admin: 01/18/19 17:13 Dose: 2 gm Oxycodone/Acetaminophen (Percocet 5/325 Mg Tab) 1 tab PO Q6 PRN PRN Reason: Pain, Mild (1-3) Stop: 01/20/19 08:58 Pantoprazole Sodium (Protonix Ec Tab) 40 mg PO DAILY [facility] Last Admin: 01/18/19 08:51 Dose: 40 mg Sertraline HCl (Zoloft) 50 mg PO DAILY [facility] Last Admin: 01/18/19 08:54 Dose: 50 mg Sitagliptin Phosphate (Januvia) 100 mg PO DAILY [facility] Last Admin: 01/18/19 08:52 Dose: 100 mg Ticagrelor (Brilinta) 90 mg PO BID [facility] Last Admin: 01/18/19 17:13 Dose: 90 mg Trazodone HCl (Desyrel) 150 mg PO HS [facility] Last Admin: 01/17/19 21:38 Dose: 150 mg - Labs Labs: 01/18/19 05:21 01/18/19 05:21 PT 11.2 Seconds (9.8-13.1) 01/17/19 05:20 INR 1.0 01/17/19 05:20 APTT 42.8 Seconds (25.6-37.1) H 01/11/19 14:20 Attending/Attestation - Attestation I have personally seen and examined this patient.: Yes I have fully participated in the care of the patient.: Yes I have reviewed all pertinent clinical information, including history, physical exam and plan: Yes Notes (Text): 01/18/19 18:01 Patient seen and examined with resident. Case discussed and agreed with ass essment and plan. Patient still with significant pain on left lower limb not relieved with PO medication. Claimed only relief with IV Morphine. Pain specialist consult called.
[2019-01-18] MEDS ORDERED: Potassium Chloride 20 mEq ER Tab PO ONE (18:22)
[2019-01-18] MEDS: Insulin Detemir 100 Units/ml Inj SC SCH (21:42)
[2019-01-19 05:19] LABS: BASO % 0.3 % (0.0-2.0); EOS # 0.5 K/uL (0.0-0.7); EOS % 4.7 % (0.0-4.0); HEMOGLOBIN 9.1 g/dL (12.0-16.0); LYMPH # 2.4 K/uL (1.0-4.3); MEAN CELL VOLUME 87.1 fl (81.0-99.0); MEAN CORPUSCULAR HEMOGLOBIN 29.6 pg (27.0-31.0); MEAN CORPUSCULAR HGB CONC 33.9 g/dL (33.0-37.0); MEAN PLATELET VOLUME 7.2 fl (7.2-11.7); MONO # 0.8 K/uL (0.0-0.8); MONO % 7.9 % (0.0-10.0); NEUT # 6.4 K/uL (1.8-7.0); NEUT % 63.1 % (50.0-75.0); RBC 3.09 Mil/uL (3.80-5.20); RED CELL DISTRIBUTION WIDTH 14.1 % (11.5-14.5); WHITE BLOOD COUNT 10.2 K/uL (4.8-10.8)
[2019-01-19 05:39] LABS: BLOOD UREA NITROGEN 13 mg/dl (7-17); CALCIUM 9.7 mg/dL (8.4-10.2); GFR NON-AFRICAN AMERICAN > 60
[2019-01-19] MEDS: Insulin Lispro (humaLOG) 100 Units/ml Inj SC SCH ×4 (08:05→22:23)
--- NOTE | 2019-01-19 08:06 | CP.PCM.PN ---
<Betzaida Gagnon - Last Filed: 01/19/19 14:34> Subjective - Date & Time of Evaluation Date of Evaluation: 01/19/19 Time of Evaluation: 09:33 - Subjective Subjective: Patient was seen and examined this morning. Pt is still complaining of left lower leg pain, but states pain has decreased since being on dilaudid. She also is c/o small painful bump on vagina x 3 wks. Pt is also c/o hardened dry skin on rt foot. Denies any f/c/cp/sob/n/v/diarrhea. Objective - Vital Signs/Intake and Output Vital Signs (last 24 hours): Temp Pulse Resp BP Pulse Ox 97.7 F 88 18 118/66 94 L 01/19/19 08:04 01/19/19 08:04 01/19/19 08:04 01/19/19 08:04 01/19/19 08:04 - Medications Medications: Current Medications Albuterol (Ventolin Hfa 90 Mcg/Actuation (8 G)) 2 puff IH Q6 PRN PRN Reason: Shortness of Breath Albuterol Sulfate (Albuterol 0.083% Inhal Jammie (2.5 Mg/3 Ml) Ud) 2.5 mg IH RQ6 PRN PRN Reason: Shortness of Breath Apixaban (Eliquis) 5 mg PO BID [facility]; Protocol Last Admin: 01/18/19 17:13 Dose: 5 mg Atorvastatin Calcium (Lipitor) 20 mg PO QPM [facility] Last Admin: 01/18/19 17:15 Dose: 20 mg Dextrose (Dextrose 50% Inj) 0 ml IV STAT PRN; Protocol PRN Reason: Hypoglycemia Protocol Dextrose (Glutose 15) 0 gm PO ONCE PRN; Protocol PRN Reason: Hypoglycemia Protocol Docusate Sodium (Colace) 100 mg PO BID [facility] Last Admin: 01/18/19 17:14 Dose: 100 mg Gabapentin (Neurontin) 800 mg PO TID [facility] Glipizide (Glucotrol) 10 mg PO BID [facility] Last Admin: 01/18/19 17:14 Dose: 10 mg Glucagon (Glucagen Diagnostic Kit) 0 mg IM STAT PRN; Protocol PRN Reason: Hypoglycemia Protocol Home Med (Patient's Own Medication) 1 unit PO DAILY [facility]; Protocol Last Admin: 01/18/19 08:54 Dose: 1 unit Hydromorphone HCl (Dilaudid) 1 mg IVP Q3 PRN PRN Reason: Pain, severe (8-10) Last Admin: 01/19/19 02:09 Dose: 1 mg Insulin Detemir (Levemir) 17 units SC [facility] Insulin Human Lispro (Humalog) 0 units SC ACCU-CHECK [facility]; Protocol Last Admin: 01/18/19 22:26 Dose: Not Given Lactulose (Enulose) 20 gm PO DAILY PRN PRN Reason: Constipation Multivitamins/Minerals (Therapeutic-M Tab) 1 tab PO DAILY [facility] Last Admin: 01/18/19 08:54 Dose: 1 tab Iporv-7-Lwts Ethyl Esters (Lovaza) 2 gm PO BID [facility] Last Admin: 01/18/19 17:13 Dose: 2 gm Oxycodone/Acetaminophen (Percocet 5/325 Mg Tab) 1 tab PO Q6 PRN PRN Reason: Pain, Mild (1-3) Stop: 01/20/19 08:58 Pantoprazole Sodium (Protonix Ec Tab) 40 mg PO DAILY [facility] Last Admin: 01/18/19 08:51 Dose: 40 mg Sertraline HCl (Zoloft) 50 mg PO DAILY [facility] Last Admin: 01/18/19 08:54 Dose: 50 mg Sitagliptin Phosphate (Januvia) 100 mg PO DAILY [facility] Last Admin: 01/18/19 08:52 Dose: 100 mg Ticagrelor (Brilinta) 90 mg PO BID [facility] Last Admin: 01/18/19 17:13 Dose: 90 mg Trazodone HCl (Desyrel) 150 mg PO [facility] Last Admin: 01/18/19 21:08 Dose: 150 mg - Labs Labs: 01/19/19 05:00 01/19/19 05:00 PT 11.2 Seconds (9.8-13.1) 01/17/19 05:20 INR 1.0 01/17/19 05:20 APTT 40.1 Seconds (25.6-37.1) H 01/19/19 05:00 - Constitutional Appears: Non-toxic - Head Exam Head Exam: ATRAUMATIC, NORMAL INSPECTION - Eye Exam Eye Exam: EOMI - ENT Exam ENT Exam: Mucous Membranes Moist - Respiratory Exam Respiratory Exam: Clear to Ausculation Bilateral - Cardiovascular Exam Cardiovascular Exam: REGULAR RHYTHM, +S1, +S2 - GI/Abdominal Exam GI & Abdominal Exam: Soft. absent: Guarding, Rigid, Tenderness - Extremities Exam Extremities Exam: Calf Tenderness Additional comments: lt calf less tender than previously noted; hyperpigmentation of dorsal aspect of left foot with some erythema; decreased tenderness to the area; rt calf minimally tender; full ROM - Neurological Exam Neurological Exam: Alert, Awake, Oriented x3 - Psychiatric Exam Psychiatric exam: Normal Mood - Skin Skin Exam: Dry Assessment and Plan - Assessment and Plan (Free Text) Assessment: 63 yo female with PMHx of HIV, DM2, HLD, PAD, peripheral neuropathy and Hodgkins Lymphoma was admitted for evaluation and management of severe PVD with int ractable LLE pain s/p successful revascularization of left superficial femoral artery. 1. Intractable LLE Pain likely due to Severe PAD -POD 2 s/p successful revascularization of left superficial femoral artery in- stent restenosis with use of LX [place] atherectomy device by Dr. Bolaños - of [facility] angioplasty in 08/2018. Pain management consulted and Dr. Lopez recommendations appreciated. - Patient received dilaudid for pain (1mg IVP Q3 PRN). Will start oxycodone 10mg PO q4-6prn now & trial of cymbalta 30mg HS as recommended by Dr. Lopez. - C/w Eliquis 5mg PO BID -C/wBrillinta 90mg PO BID 2. Non occlusive DVT of R popliteal vein - Eliquis 5mg PO BID 3. HIV, asymptomatic, controlled - Last CD4 872 on - Viral load undetectable. - Continue home meds 4. DM2 ( Chronic) - Metformin on hold - ISS and hypoglycemia protocol -FU A1c -Last A1c 10/2018- 8.2 5.Mild intermittent Asthma( Chronic, controlled) - Home meds resumed. 6. folliculitis of rt labia majora -C/w warm compresses 7. hyperkeratotic area on rt foot -Podiatry consulted and recommendations appreciated. -Pt advised to well loose fitting shoes rather than tightly fitting 8. DVT prophylaxis - Eliquis 5mg PO BID <Kaity Peacock - Last Filed: 01/20/19 15:08> Objective - Vital Signs/Intake and Output Vital Signs (last 24 hours): Temp Pulse Resp BP Pulse Ox 97.7 F 88 20 99/59 L 99 04/04/19 11:52 01/20/19 11:52 01/20/19 11:52 01/20/19 11:52 01/20/19 11:52 - Labs Labs: 01/20/19 04:40 01/19/19 05:00 PT 11.2 Seconds (9.8-13.1) 01/17/19 05:20 INR 1.0 01/17/19 05:20 APTT 40.1 Seconds (25.6-37.1) H 01/19/19 05:00 Attending/Attestation - Attestation I have personally seen and examined this patient.: Yes I have fully participated in the care of the patient.: Yes I have reviewed all pertinent clinical information, including history, physical exam and plan: Yes Notes (Text): 01/20/19 15:08 Agree with findings and plan as above.
--- NOTE | 2019-01-19 09:01 | CP.PCM.CON ---
History of Present Illness - History of Present Illness History of Present Illness: 63 yo woman w/ DM, HIV, PAD s/p LLE stenting, POD #2, has persistent pain and is referred for pain management. Morphine IV was changed to Dilaudid IV overnight and pain is better controlled. Patient appears to be more comfortable this morning and wants to ambulate. She had been on Gabapentin 400mg q8h and Ibuprofen 800mg as an outpatient, which weren't helpful. This has been a chronic condition for the patient and has had interventions before. The pain is currently in the lower leg, throbbing and diffuse. She also admits to diffuse peripheral neuropathy, not limited to the left leg. She had tried Lyrica before and she didn't tolerate it well. Past Patient History - Infectious Disease Hx of Infectious Diseases: None - Past Medical History & Family History Past Medical History?: Yes - Past Social History Smoking Status: Former Smoker - CARDIAC Hx Hypercholesterolemia: Yes - PULMONARY Hx Asthma: Yes Hx Chronic Obstructive Pulmonary Disease (COPD): Yes (Emphysema,) Hx Emphysema: Yes Hx Pneumonia: Yes (DECEMBER 2013 INTUBATED) - NEUROLOGICAL Hx Neurological Disorder: No - HEENT Hx HEENT Problems: Yes - RENAL Hx Chronic Kidney Disease: No Hx Kidney Stones: Yes (40 YRS AGO) - ENDOCRINE/METABOLIC Hx Endocrine Disorders: Yes Hx Diabetes Mellitus Type 2: Yes - HEMATOLOGICAL/ONCOLOGICAL Hx Anemia: Yes Hx Human Immunodeficiency Virus (HIV): Yes (levels undetectable) - INTEGUMENTARY Hx Dermatological Problems: Yes Hx Cellulitis: Yes - MUSCULOSKELETAL/RHEUMATOLOGICAL Hx Musculoskeletal Disorders: No Hx Falls: Yes - GASTROINTESTINAL Hx Gall Bladder Disease: Yes - GENITOURINARY/GYNECOLOGICAL Hx Genitourinary Disorders: Yes Other/Comment: Bladder Prolapse with mesh - PSYCHIATRIC Hx Anxiety: Yes Hx Depression: Yes - SURGICAL HISTORY Hx Cholecystectomy: Yes - ANESTHESIA Hx Anesthesia: Yes Hx Anesthesia Reactions: No Hx Malignant Hyperthermia: No Meds Allergies/Adverse Reactions: Allergies Allergy/AdvReac Type Severity Reaction Status Date / Time No Known Allergies Allergy Verified 01/04/19 18:03 - Medications Medications: Current Medications Albuterol (Ventolin Hfa 90 Mcg/Actuation (8 G)) 2 puff IH Q6 PRN PRN Reason: Shortness of Breath Albuterol Sulfate (Albuterol 0.083% Inhal Jmamie (2.5 Mg/3 Ml) Ud) 2.5 mg IH RQ6 PRN PRN Reason: Shortness of Breath Apixaban (Eliquis) 5 mg PO BID [facility]; Protocol Last Admin: 01/18/19 17:13 Dose: 5 mg Atorvastatin Calcium (Lipitor) 20 mg PO QPM [facility] Last Admin: 01/18/19 17:15 Dose: 20 mg Dextrose (Dextrose 50% Inj) 0 ml IV STAT PRN; Protocol PRN Reason: Hypoglycemia Protocol Dextrose (Glutose 15) 0 gm PO ONCE PRN; Protocol PRN Reason: Hypoglycemia Protocol Docusate Sodium (Colace) 100 mg PO BID [facility] Last Admin: 01/18/19 17:14 Dose: 100 mg Gabapentin (Neurontin) 800 mg PO TID [facility] Glipizide (Glucotrol) 10 mg PO BID [facility] Last Admin: 01/18/19 17:14 Dose: 10 mg Glucagon (Glucagen Diagnostic Kit) 0 mg IM STAT PRN; Protocol PRN Reason: Hypoglycemia Protocol Home Med (Patient's Own Medication) 1 unit PO DAILY [facility]; Protocol Last Admin: 01/18/19 08:54 Dose: 1 unit Hydromorphone HCl (Dilaudid) 1 mg IVP Q3 PRN PRN Reason: Pain, severe (8-10) Last Admin: 01/19/19 02:09 Dose: 1 mg Insulin Detemir (Levemir) 17 units SC HS [facility] Insulin Human Lispro (Humalog) 0 units SC ACCU-CHECK [facility]; Protocol Last Admin: 01/18/19 22:26 Dose: Not Given Lactulose (Enulose) 20 gm PO DAILY PRN PRN Reason: Constipation Multivitamins/Minerals (Therapeutic-M Tab) 1 tab PO DAILY [facility] Last Admin: 01/18/19 08:54 Dose: 1 tab Hblzp-1-Fkzc Ethyl Esters (Lovaza) 2 gm PO BID [facility] Last Admin: 01/18/19 17:13 Dose: 2 gm Oxycodone/Acetaminophen (Percocet 5/325 Mg Tab) 1 tab PO Q6 PRN PRN Reason: Pain, Mild (1-3) Stop: 01/20/19 08:58 Pantoprazole Sodium (Protonix Ec Tab) 40 mg PO DAILY [facility] Last Admin: 01/18/19 08:51 Dose: 40 mg Sertraline HCl (Zoloft) 50 mg PO DAILY [facility] Last Admin: 01/18/19 08:54 Dose: 50 mg Sitagliptin Phosphate (Januvia) 100 mg PO DAILY [facility] Last Admin: 01/18/19 08:52 Dose: 100 mg Ticagrelor (Brilinta) 90 mg PO BID [facility] Last Admin: 01/18/19 17:13 Dose: 90 mg Trazodone HCl (Desyrel) 150 mg PO HS [facility] Last Admin: 01/18/19 21:08 Dose: 150 mg Physical Exam - Constitutional Appears: Non-toxic, No Acute Distress - Extremities Exam Extremities exam: Positive for: calf tenderness, tenderness Results - Vital Signs Recent Vital Signs: Last Vital Signs Temp 97.7 F 01/19/19 08:04 Pulse 88 01/19/19 08:04 Resp 18 01/19/19 08:04 BP 118/66 01/19/19 08:04 Pulse Ox 94 L 01/19/19 08:04 - Labs Result Diagrams: 01/19/19 05:00 01/19/19 05:00 Labs: Laboratory Results - last 24 hr 01/18/19 01/18/19 01/18/19 05:21 10:57 15:40 WBC RBC Hgb Hct MCV MCH MCHC RDW Plt Count MPV Neut % (Auto) Lymph % (Auto) [place] % (Auto) Eos % (Auto) Baso % (Auto) Neut # (Auto) Lymph # (Auto) [place] # (Auto) Eos # (Auto) Baso # (Auto) APTT Sodium Potassium Chloride Carbon Dioxide Anion Gap BUN Creatinine Est GFR ( Amer) Est GFR (Non-Af Amer) POC Glucose (mg/dL) 305 H 233 H Random Glucose Hemoglobin A1c 8.7 H Calcium 01/18/19 01/19/19 01/19/19 21:29 05:00 05:00 WBC 10.2 RBC 3.09 L Hgb 9.1 L Hct 26.9 L MCV 87.1 MCH 29.6 MCHC 33.9 RDW 14.1 Plt Count 396 MPV 7.2 Neut % (Auto) 63.1 Lymph % (Auto) 24.0 [place] % (Auto) 7.9 Eos % (Auto) 4.7 H Baso % (Auto) 0.3 Neut # (Auto) 6.4 Lymph # (Auto) 2.4 [place] # (Auto) 0.8 Eos # (Auto) 0.5 Baso # (Auto) 0.0 APTT Sodium 135 Potassium 4.7 Chloride 100 Carbon Dioxide 25 Anion Gap 15 BUN 13 Creatinine 0.8 Est GFR ( Amer) > 60 Est GFR (Non-Af Amer) > 60 POC Glucose (mg/dL) 119 H Random Glucose 206 H Hemoglobin A1c Calcium 9.7 01/19/19 01/19/19 05:00 05:24 WBC RBC Hgb Hct MCV MCH MCHC RDW Plt Count MPV Neut % (Auto) Lymph % (Auto) [place] % (Auto) Eos % (Auto) Baso % (Auto) Neut # (Auto) Lymph # (Auto) [place] # (Auto) Eos # (Auto) Baso # (Auto) APTT 40.1 H Sodium Potassium Chloride Carbon Dioxide Anion Gap BUN Creatinine Est GFR ( Amer) Est GFR (Non-Af Amer) POC Glucose (mg/dL) 225 H Random Glucose Hemoglobin A1c Calcium Assessment & Plan (1) Limb ischemia Assessment and Plan: 63 yo woman w/ peripheral neuropathy from HIV and DM, also ischemic/re-perfusion pain from PAD s/p stenting. Patient is better tolerated with Dilaudid IV. - continue Dilaudid IV for now, can transition to PO Oxycodone 10mg q4-6 PRN when discharge is pending - increase Neurontin to 600mg q8h - trial of Cymbalta 30mg qhs Status: Acute
[2019-01-19] MEDS: Omega-3-Acid Ethyl Esters 1 GM Cap PO SCH ×2 (09:44→17:04)
[2019-01-19] MEDS: Pantoprazole 40 mg EC Tab PO SCH (09:44)
[2019-01-19] MEDS: Dolutegravir Sodium 50 mg Tab [Patient's Own Med] PO SCH (09:45)
[2019-01-19] MEDS ORDERED: DARUNAVIR ETHANOLATE PO SCH (10:30)
--- NOTE | 2019-01-19 10:36 | CP.PCM.CON ---
History of Present Illness - History of Present Illness History of Present Illness: Podiatry consult note - Dr. Jimenez 63F seen and evaluated at bedside this AM with pain in the right foot. Resting comfortably, states she had a revascularization procedure two days ago in her left leg. Reports ischemic pain to the left foot and LE. Reports mild pain to the right foot at the outside of her forefoot. States that she feels like her shoes are rubbing on her foot as they are too tight. Denies n/v/f/c/sob today and has no other acute complaints. Patient is getting ready to participate in PT. PMHx: DM, HIV, PAD PSHx: stenting All: NKDA Past Patient History - Infectious Disease Hx of Infectious Diseases: None - Past Medical History & Family History Past Medical History?: Yes - Past Social History Smoking Status: Former Smoker - CARDIAC Hx Hypercholesterolemia: Yes - PULMONARY Hx Asthma: Yes Hx Chronic Obstructive Pulmonary Disease (COPD): Yes (Emphysema,) Hx Emphysema: Yes Hx Pneumonia: Yes (DECEMBER 2013 INTUBATED) - NEUROLOGICAL Hx Neurological Disorder: No - HEENT Hx HEENT Problems: Yes - RENAL Hx Chronic Kidney Disease: No Hx Kidney Stones: Yes (40 YRS AGO) - ENDOCRINE/METABOLIC Hx Endocrine Disorders: Yes Hx Diabetes Mellitus Type 2: Yes - HEMATOLOGICAL/ONCOLOGICAL Hx Anemia: Yes Hx Human Immunodeficiency Virus (HIV): Yes (levels undetectable) - INTEGUMENTARY Hx Dermatological Problems: Yes Hx Cellulitis: Yes - MUSCULOSKELETAL/RHEUMATOLOGICAL Hx Musculoskeletal Disorders: No Hx Falls: Yes - GASTROINTESTINAL Hx Gall Bladder Disease: Yes - GENITOURINARY/GYNECOLOGICAL Hx Genitourinary Disorders: Yes Other/Comment: Bladder Prolapse with mesh - PSYCHIATRIC Hx Anxiety: Yes Hx Depression: Yes - SURGICAL HISTORY Hx Cholecystectomy: Yes - ANESTHESIA Hx Anesthesia: Yes Hx Anesthesia Reactions: No Hx Malignant Hyperthermia: No Meds Allergies/Adverse Reactions: Allergies Allergy/AdvReac Type Severity Reaction Status Date / Time No Known Allergies Allergy Verified 01/04/19 18:03 - Medications Medications: Current Medications Albuterol (Ventolin Hfa 90 Mcg/Actuation (8 G)) 2 puff IH Q6 PRN PRN Reason: Shortness of Breath Albuterol Sulfate (Albuterol 0.083% Inhal Jammie (2.5 Mg/3 Ml) Ud) 2.5 mg IH RQ6 PRN PRN Reason: Shortness of Breath Apixaban (Eliquis) 5 mg PO BID [facility]; Protocol Last Admin: 01/19/19 09:51 Dose: 5 mg Atorvastatin Calcium (Lipitor) 20 mg PO QPM [facility] Last Admin: 01/18/19 17:15 Dose: 20 mg Darunavir (Prezista) 800 mg PO DAILY [facility]; Protocol Dextrose (Dextrose 50% Inj) 0 ml IV STAT PRN; Protocol PRN Reason: Hypoglycemia Protocol Dextrose (Glutose 15) 0 gm PO ONCE PRN; Protocol PRN Reason: Hypoglycemia Protocol Docusate Sodium (Colace) 100 mg PO BID [facility] Last Admin: 01/19/19 09:50 Dose: 100 mg Duloxetine HCl (Cymbalta) 30 mg PO DAILY [facility] Gabapentin (Neurontin) 800 mg PO TID [facility] Last Admin: 01/19/19 09:43 Dose: 800 mg Glipizide (Glucotrol) 10 mg PO BID [facility] Last Admin: 01/19/19 09:46 Dose: 10 mg Glucagon (Glucagen Diagnostic Kit) 0 mg IM STAT PRN; Protocol PRN Reason: Hypoglycemia Protocol Home Med (Patient's Own Medication) 1 unit PO DAILY [facility]; Protocol Last Admin: 01/19/19 09:45 Dose: 1 unit Hydromorphone HCl (Dilaudid) 1 mg IVP Q3 PRN PRN Reason: Pain, severe (8-10) Last Admin: 01/19/19 09:27 Dose: 1 mg Insulin Detemir (Levemir) 17 units SC HS [facility] Insulin Human Lispro (Humalog) 0 units SC ACCU-CHECK [facility]; Protocol Last Admin: 01/19/19 08:05 Dose: 2 units Lactulose (Enulose) 20 gm PO DAILY PRN PRN Reason: Constipation Multivitamins/Minerals (Therapeutic-M Tab) 1 tab PO DAILY [facility] Last Admin: 01/18/19 08:54 Dose: 1 tab Bfguh-2-Lgwi Ethyl Esters (Lovaza) 2 gm PO BID [facility] Last Admin: 01/19/19 09:44 Dose: 2 gm Oxycodone/Acetaminophen (Percocet 5/325 Mg Tab) 1 tab PO Q6 PRN PRN Reason: Pain, Mild (1-3) Stop: 01/20/19 08:58 Pantoprazole Sodium (Protonix Ec Tab) 40 mg PO DAILY [facility] Last Admin: 01/19/19 09:44 Dose: 40 mg Ritonavir (Norvir) 100 mg PO DAILY [facility]; Protocol Sertraline HCl (Zoloft) 50 mg PO DAILY [facility] Last Admin: 01/19/19 09:46 Dose: 50 mg Sitagliptin Phosphate (Januvia) 100 mg PO DAILY [facility] Last Admin: 01/19/19 09:49 Dose: 100 mg Tenofovir Disoproxil Fumarate (Viread) 300 mg PO DAILY [facility]; Protocol Ticagrelor (Brilinta) 90 mg PO BID [facility] Last Admin: 01/19/19 09:48 Dose: 90 mg Trazodone HCl (Desyrel) 150 mg PO HS [facility] Last Admin: 01/18/19 21:08 Dose: 150 mg Physical Exam - Constitutional Appears: Non-toxic - Head Exam Head Exam: ATRAUMATIC - Extremities Exam Additional comments: RLE focused exam VASC: DP and PT pulses nonpalpable; cap refill <3 seconds to all digits; temp gradient warm to cool; no edema noted to LE DERM: no open lesions or wounds; hyperkeratotic lesion at the lateral aspect of the fifth MPJ; no drainage, mild erythema present sandeep-lesion; no malodor or clinical signs of infection ORTHO: mild pain on palpation at the lesion, no other gross pathology noted NEURO: gross and protective sensation diminished - Neurological Exam Neurological exam: Alert, Oriented x3 - Psychiatric Exam Psychiatric exam: Normal Affect Results - Vital Signs Recent Vital Signs: Last Vital Signs Temp 97.7 F 01/19/19 08:04 Pulse 88 01/19/19 08:04 Resp 18 01/19/19 08:04 BP 118/66 01/19/19 08:04 Pulse Ox 94 L 01/19/19 08:04 - Labs Result Diagrams: 01/19/19 05:00 01/19/19 05:00 Labs: Laboratory Results - last 24 hr 01/18/19 01/18/19 01/18/19 05:21 10:57 15:40 WBC RBC Hgb Hct MCV MCH MCHC RDW Plt Count MPV Neut % (Auto) Lymph % (Auto) [place] % (Auto) Eos % (Auto) Baso % (Auto) Neut # (Auto) Lymph # (Auto) [place] # (Auto) Eos # (Auto) Baso # (Auto) APTT Sodium Potassium Chloride Carbon Dioxide Anion Gap BUN Creatinine Est GFR ( Amer) Est GFR (Non-Af Amer) POC Glucose (mg/dL) 305 H 233 H Random Glucose Hemoglobin A1c 8.7 H Calcium 01/18/19 01/19/19 01/19/19 21:29 05:00 05:00 WBC 10.2 RBC 3.09 L Hgb 9.1 L Hct 26.9 L MCV 87.1 MCH 29.6 MCHC 33.9 RDW 14.1 Plt Count 396 MPV 7.2 Neut % (Auto) 63.1 Lymph % (Auto) 24.0 [place] % (Auto) 7.9 Eos % (Auto) 4.7 H Baso % (Auto) 0.3 Neut # (Auto) 6.4 Lymph # (Auto) 2.4 [place] # (Auto) 0.8 Eos # (Auto) 0.5 Baso # (Auto) 0.0 APTT Sodium 135 Potassium 4.7 Chloride 100 Carbon Dioxide 25 Anion Gap 15 BUN 13 Creatinine 0.8 Est GFR ( Amer) > 60 Est GFR (Non-Af Amer) > 60 POC Glucose (mg/dL) 119 H Random Glucose 206 H Hemoglobin A1c Calcium 9.7 01/19/19 01/19/19 05:00 05:24 WBC RBC Hgb Hct MCV MCH MCHC RDW Plt Count MPV Neut % (Auto) Lymph % (Auto) [place] % (Auto) Eos % (Auto) Baso % (Auto) Neut # (Auto) Lymph # (Auto) [place] # (Auto) Eos # (Auto) Baso # (Auto) APTT 40.1 H Sodium Potassium Chloride Carbon Dioxide Anion Gap BUN Creatinine Est GFR ( Amer) Est GFR (Non-Af Amer) POC Glucose (mg/dL) 225 H Random Glucose Hemoglobin A1c Calcium Assessment & Plan - Assessment and Plan (Free Text) Assessment: 63F with right foot hyperkeratotic lesion Plan: Patient seen and evaluated Discussed with Dr. Jimenez Site left open to air Surgical shoe ordered - instructed to wear shoes with wide toe box in order to prevent rubbing and pressure which contributed to lesion development No debridement indicated as patient has PVD Instructed to f/u with Dr. Jimenez in podiatry clinic upon d/c Podiatry to sign off Please reconsult if any acute problems present Thank you for the consult - Date & Time Date: 01/19/19 Time: 11:00
[2019-01-19] MEDS: Multivitamin With Minerals Tab PO SCH (12:50)
[2019-01-19] MEDS ORDERED: oxyCODONE 10 mg Immediate Release Tab PO PRN (14:25)
--- NOTE | 2019-01-19 14:58 | CP.PCM.PN ---
Subjective - Date & Time of Evaluation Date of Evaluation: 01/19/19 Time of Evaluation: 14:56 - Subjective Subjective: Vladislav Montes, PGY-1, Cardiology Progress Note for Dr. Bolaños Patient seen and evaluated at bedside. Patient had no acute overnight events. Patient reports left lower extremity pain though improved and right lower extremity pain at site of catheter insertion improved today Objective - Vital Signs/Intake and Output Vital Signs (last 24 hours): Temp Pulse Resp BP Pulse Ox 98 F 80 18 100/64 96 01/19/19 12:07 01/19/19 12:07 01/19/19 12:07 01/19/19 12:07 01/19/19 12:07 - Medications Medications: Current Medications Albuterol (Ventolin Hfa 90 Mcg/Actuation (8 G)) 2 puff IH Q6 PRN PRN Reason: Shortness of Breath Albuterol Sulfate (Albuterol 0.083% Inhal Jammie (2.5 Mg/3 Ml) Ud) 2.5 mg IH RQ6 PRN PRN Reason: Shortness of Breath Apixaban (Eliquis) 5 mg PO BID [facility]; Protocol Last Admin: 01/19/19 09:51 Dose: 5 mg Atorvastatin Calcium (Lipitor) 20 mg PO QPM [facility] Last Admin: 01/18/19 17:15 Dose: 20 mg Darunavir (Prezista) 800 mg PO DAILY [facility]; Protocol Last Admin: 01/19/19 12:56 Dose: 800 mg Dextrose (Dextrose 50% Inj) 0 ml IV STAT PRN; Protocol PRN Reason: Hypoglycemia Protocol Dextrose (Glutose 15) 0 gm PO ONCE PRN; Protocol PRN Reason: Hypoglycemia Protocol Docusate Sodium (Colace) 100 mg PO BID [facility] Last Admin: 01/19/19 09:50 Dose: 100 mg Duloxetine HCl (Cymbalta) 30 mg PO HS [facility] Gabapentin (Neurontin) 800 mg PO TID [facility] Last Admin: 01/19/19 13:26 Dose: 800 mg Glipizide (Glucotrol) 10 mg PO BID [facility] Last Admin: 01/19/19 09:46 Dose: 10 mg Glucagon (Glucagen Diagnostic Kit) 0 mg IM STAT PRN; Protocol PRN Reason: Hypoglycemia Protocol Home Med (Patient's Own Medication) 1 unit PO DAILY [facility]; Protocol Last Admin: 01/19/19 09:45 Dose: 1 unit Insulin Detemir (Levemir) 17 units SC [facility] Insulin Human Lispro (Humalog) 0 units SC ACCU-CHECK [facility]; Protocol Last Admin: 01/19/19 12:30 Dose: 3 units Lactulose (Enulose) 20 gm PO DAILY PRN PRN Reason: Constipation Multivitamins/Minerals (Therapeutic-M Tab) 1 tab PO DAILY [facility] Last Admin: 01/19/19 12:50 Dose: 1 tab [id number] Ethyl Esters (Lovaza) 2 gm PO BID [facility] Last Admin: 01/19/19 09:44 Dose: 2 gm Oxycodone HCl (Oxycodone Immediate Release Tab) 10 mg PO Q6 PRN PRN Reason: Pain, moderate (4-7) Pantoprazole Sodium (Protonix Ec Tab) 40 mg PO DAILY [facility] Last Admin: 01/19/19 09:44 Dose: 40 mg Ritonavir (Norvir) 100 mg PO DAILY [facility]; Protocol Last Admin: 01/19/19 12:51 Dose: 100 mg Sertraline HCl (Zoloft) 50 mg PO DAILY [facility] Last Admin: 01/19/19 09:46 Dose: 50 mg Sitagliptin Phosphate (Januvia) 100 mg PO DAILY [facility] Last Admin: 01/19/19 09:49 Dose: 100 mg Tenofovir Disoproxil Fumarate (Viread) 300 mg PO DAILY [facility]; Protocol Last Admin: 01/19/19 12:51 Dose: 300 mg Ticagrelor (Brilinta) 90 mg PO BID [facility] Last Admin: 01/19/19 09:48 Dose: 90 mg Trazodone HCl (Desyrel) 150 mg PO [facility] Last Admin: 01/18/19 21:08 Dose: 150 mg - Labs Labs: 01/19/19 05:00 01/19/19 05:00 PT 11.2 Seconds (9.8-13.1) 01/17/19 05:20 INR 1.0 01/17/19 05:20 APTT 40.1 Seconds (25.6-37.1) H 01/19/19 05:00 - Constitutional Appears: Well, Non-toxic, In Acute Distress - Head Exam Head Exam: ATRAUMATIC, NORMAL INSPECTION, NORMOCEPHALIC - Eye Exam Eye Exam: EOMI, PERRL - ENT Exam ENT Exam: Mucous Membranes Moist - Respiratory Exam Respiratory Exam: Clear to Auscultation Bilateral, NORMAL BREATHING PATTERN - Cardiovascular Exam Cardiovascular Exam: REGULAR RHYTHM, RRR, +S1, +S2 - GI/Abdominal Exam GI & Abdominal Exam: Normal Bowel Sounds, Soft. absent: Tenderness - Extremities Exam Extremities exam: Positive for: full ROM, normal inspection, tenderness (bilateral lower extremities). Negative for: pedal edema, hematoma - Neurological Exam Neurological exam: Alert, CN II-XII Intact, Oriented x3 - Skin Skin Exam: Dry, Intact Assessment and Plan (1) PVD (peripheral vascular disease) Assessment & Plan: CTA of bilateral lower extremities 01/06/19: mild plaque in the abdominal aorta without significant stenosis. Right lower extremity shows SFA with severe stenosis at the origin and multiple areas of moderate to severe stenosis throughout the mid and distal segements, sever stenosis of the popliteal artery, stenosis of the peroneal artery at the mid and distal segments. Left lower extremity shows SFA has been previously stented and has mild to severe disease in stent stenosis. Distal SFA is moderately stenotic. There is moderate stenosis of popliteal artery. Anterior tibial artery is occluded after the proximal segment. Peroneal artery is occluded in the proximal segment with brief mid segment reconstitution then occludes again. Peripheral catheterization: shows diffuse neointimal hyperplasia, vasospasms, calcifications, reocclusion of stent. Britton atherectomy performed with reperfusion of left lower extremity Continue lipitor, omega 3 acid, eliquis, brilinta Patient can be cleared from cardiac standpoint. Patient should follow up outpatient with Dr. Bolaños within 2 weeks. Status: Acute (2) Deep vein thrombosis (DVT) of popliteal vein of right lower extremity Assessment & Plan: Lower extremity ultrasound 01/04/19: nonocclusive eccentric thrombus in the right popliteal vein. Possible chronic venous thrombus. Cannot rule out acute venous thrombosis though appearance is atypical. Continue eliquis Status: Acute (3) Diabetes mellitus Assessment & Plan: HgbA1c: 8.7 Continue glipizide, januvia, sliding scale insulin Status: Acute (4) COPD (chronic obstructive pulmonary disease) Assessment & Plan: Continue with nebulizers Status: Chronic
[2019-01-19] MEDS ORDERED: Insulin Detemir 100 Units/ml Inj SC SCH (22:00)
[2019-01-19] MEDS ORDERED: HYDROmorphone 1 mg/ml ISec IVP PRN (22:09)
[2019-01-20 06:54] LABS: BASO # 0.1 K/uL (0.0-0.2); BASO % 0.5 % (0.0-2.0); EOS # 0.5 K/uL (0.0-0.7); EOS % 5.3 % (0.0-4.0); HEMOGLOBIN 9.7 g/dL (12.0-16.0); LYMPH # 2.5 K/uL (1.0-4.3); LYMPH % 23.9 % (20.0-40.0); MEAN CELL VOLUME 86.8 fl (81.0-99.0); MEAN CORPUSCULAR HEMOGLOBIN 29.2 pg (27.0-31.0); MEAN CORPUSCULAR HGB CONC 33.7 g/dL (33.0-37.0); MEAN PLATELET VOLUME 7.4 fl (7.2-11.7); MONO # 0.8 K/uL (0.0-0.8); MONO % 7.7 % (0.0-10.0); NEUT # 6.4 K/uL (1.8-7.0); NEUT % 62.6 % (50.0-75.0); RBC 3.32 Mil/uL (3.80-5.20); RED CELL DISTRIBUTION WIDTH 13.8 % (11.5-14.5); WHITE BLOOD COUNT 10.3 K/uL (4.8-10.8)
[2019-01-20 07:55] VITALS: RESP 20
[2019-01-20] MEDS: Insulin Lispro (humaLOG) 100 Units/ml Inj SC SCH ×2 (10:35→11:55)
[2019-01-20] MEDS: Omega-3-Acid Ethyl Esters 1 GM Cap PO SCH (10:36)
[2019-01-20] MEDS: Dolutegravir Sodium 50 mg Tab [Patient's Own Med] PO SCH (10:40)
[2019-01-20] MEDS: Multivitamin With Minerals Tab PO SCH (10:41)
[2019-01-20] MEDS: Pantoprazole 40 mg EC Tab PO SCH (10:42)
[2019-01-20 11:52] VITALS: BP 99/59; PULSE 88; TEMP 97.7; O2SAT 99
--- NOTE | 2019-01-20 13:36 | CP.PCM.DIS ---
<Betzaida Gagnon - Last Filed: 01/20/19 13:50> Provider - Provider Date of Admission: 01/11/19 17:54 Attending physician: Fuentes Simpson MD Consults: 01/11/19 23:36 Case Management Referral Routine Comment: Physician Instructions: Reason For Exam: Reason for Referral: Discharge Planning 01/12/19 07:42 Cardiology Consult Routine Comment: Consulting Provider: Jose Alberto Bolaños Consulting Physician: Jose Alberto Bolaños Reason for Consult: chronic worsening PAD 01/18/19 12:37 Anesthesiology Consult Routine Comment: Consulting Provider: Glen Cantu Consulting Physician: Glen Cantu Reason for Consult: pain management 01/18/19 17:30 Physician Consult Routine Comment: Consulting Provider: Roger Lopez Consulting Physician: Roger Lopez Reason for Consult: Pain management 01/19/19 09:35 Physician Consult Routine Comment: Consulting Provider: Agustin Jimenez Consulting Physician: Agustin Jimenez Reason for Consult: hyperkeratotic are on lateral asp of rt foot below 5th digit Time Spent in preparation of Discharge (in minutes): 45 Hospital Course - Lab Results Lab Results: Most Recent Lab Values WBC 10.3 K/uL (4.8-10.8) 01/20/19 04:40 RBC 3.32 Mil/uL (3.80-5.20) L 01/20/19 04:40 Hgb 9.7 g/dL (12.0-16.0) L 01/20/19 04:40 Hct 28.8 % (34.0-47.0) L 01/20/19 04:40 MCV 86.8 fl (81.0-99.0) 01/20/19 04:40 MCH 29.2 pg (27.0-31.0) 01/20/19 04:40 MCHC 33.7 g/dL (33.0-37.0) 01/20/19 04:40 RDW 13.8 % (11.5-14.5) 01/20/19 04:40 Plt Count 412 K/uL (130-400) H 01/20/19 04:40 MPV 7.4 fl (7.2-11.7) 01/20/19 04:40 Neut % (Auto) 62.6 % (50.0-75.0) 01/20/19 04:40 Lymph % (Auto) 23.9 % (20.0-40.0) 01/20/19 04:40 Placer % (Auto) 7.7 % (0.0-10.0) 01/20/19 04:40 Eos % (Auto) 5.3 % (0.0-4.0) H 01/20/19 04:40 Baso % (Auto) 0.5 % (0.0-2.0) 01/20/19 04:40 Neut # (Auto) 6.4 K/uL (1.8-7.0) 01/20/19 04:40 Lymph # (Auto) 2.5 K/uL (1.0-4.3) 01/20/19 04:40 Placer # (Auto) 0.8 K/uL (0.0-0.8) 01/20/19 04:40 Eos # (Auto) 0.5 K/uL (0.0-0.7) 01/20/19 04:40 Baso # (Auto) 0.1 K/uL (0.0-0.2) 01/20/19 04:40 PT 11.2 Seconds (9.8-13.1) 01/17/19 05:20 INR 1.0 01/17/19 05:20 APTT 40.1 Seconds (25.6-37.1) H 01/19/19 05:00 Sodium 135 mmol/l (132-148) 01/19/19 05:00 Potassium 4.7 MMOL/L (3.6-5.0) 01/19/19 05:00 Chloride 100 mmol/L (98-107) 01/19/19 05:00 Carbon Dioxide 25 mmol/L (22-30) 01/19/19 05:00 Anion Gap 15 (10-20) 01/19/19 05:00 BUN 13 mg/dl (7-17) 01/19/19 05:00 Creatinine 0.8 mg/dl (0.7-1.2) 01/19/19 05:00 Est GFR ( Amer) > 60 01/19/19 05:00 Est GFR (Non-Af Amer) > 60 01/19/19 05:00 POC Glucose (mg/dL) 371 mg/dL (65-110) H 01/20/19 11:11 Random Glucose 206 mg/dL (65-105) H 01/19/19 05:00 Hemoglobin A1c 8.7 % (4.2-6.5) H 01/18/19 05:21 Calcium 9.7 mg/dL (8.4-10.2) 01/19/19 05:00 Magnesium 1.6 MG/DL (1.6-2.3) 01/11/19 14:20 Total Bilirubin 0.3 mg/dl (0.2-1.3) 01/11/19 14:20 AST 21 U/L (14-36) 01/11/19 14:20 ALT 23 U/L (9-52) 01/11/19 14:20 Alkaline Phosphatase 103 U/L (38-126) 01/11/19 14:20 Total Protein 8.1 G/DL (6.3-8.2) 01/11/19 14:20 Albumin 4.4 g/dL (3.5-5.0) 01/11/19 14:20 Globulin 3.7 gm/dL (2.2-3.9) 01/11/19 14:20 Albumin/Globulin Ratio 1.2 (1.0-2.1) 01/11/19 14:20 Urine Color Yellow (YELLOW) 01/17/19 22:45 Urine Clarity Clear (Clear) 01/17/19 22:45 Urine pH 6.0 (5.0-8.0) 01/17/19 22:45 Ur Specific [place] > 1.060 (1.003-1.030) H 01/17/19 22:45 Urine Protein 100 mg/dL (NEGATIVE) 01/17/19 22:45 Urine Glucose (UA) 50 mg/dL (NEGATIVE) 01/17/19 22:45 Urine Ketones Negative mg/dL (NEGATIVE) 01/17/19 22:45 Urine Blood Negative (NEGATIVE) 01/17/19 22:45 Urine Nitrate Positive (NEGATIVE) H 01/17/19 22:45 Urine Bilirubin Negative (NEGATIVE) 01/17/19 22:45 Urine Urobilinogen 0.2-1.0 mg/dL (0.2-1.0) 01/17/19 22:45 Ur Leukocyte Esterase Neg Concepcion/uL (Negative) 01/17/19 22:45 Urine RBC (Auto) < 1 /hpf (0-3) 01/17/19 22:45 Urine Microscopic WBC 7 /hpf (0-5) H 01/17/19 22:45 Ur Squamous Epith Cells 1 /hpf (0-5) 01/17/19 22:45 Urine Bacteria Rare (<OCC) 01/17/19 22:45 - Hospital Course Hospital Course: 63 yo female with PMHx of HIV, DM2, HLD, PAD, peripheral neuropathy and Hodgkins Lymphoma was admitted for evaluation and management of severe PVD with intractable LLE pain. Successful revascularization of left superficial femoral artery in-stent restenosis with use of LX The Box atherectomy device by Dr. Bolaños. Pt was seen and examined this morning. Patient's states pain has improved, and she was able to sleep after receiving pain medications. She denies any f/c/n/v/diarrhea cp or sob. Pt discharged home today with FU at [facility] with Dr. Gonzalez in 1 wk, and FU with Dr. Bolaños in 2 wks. 1. Intractable LLE Pain likely due to Severe PAD -Brillinta 90mg PO BID - Eliquis 5mg PO BID -Oxycodone 10mg PO 1tab, Q6 prn mod/severe pain 2. Non occlusive DVT of R popliteal vein - Eliquis 5mg PO BID 3. HIV, asymptomatic, controlled - Continue home meds 4. DM2 ( Chronic) -C/w home meds 5.Mild intermittent Asthma( Chronic, controlled) - Cont. home meds 6. Folliculitis of rt labia majora -c/w warm compresses 7. Hyperkeratotic area on dorsal aspect of rt ft -wear loose fitting shoes as per podiatry 8. Peripheral neuropathy -Gabapentin 800mg TID Cymbalta 30mg PO QHS Discharge Exam - Head Exam Head Exam: ATRAUMATIC, NORMAL INSPECTION - Eye Exam Eye Exam: EOMI - ENT Exam ENT Exam: Mucous Membranes Moist - Neck Exam Neck exam: Full Rom - Respiratory Exam Respiratory Exam: Clear to PA & Lateral. absent: Respiratory Distress - Cardiovascular Exam Cardiovascular Exam: REGULAR RHYTHM, +S1, +S2 - GI/Abdominal Exam GI & Abdominal Exam: Normal Bowel Sounds, Soft. absent: Guarding, Rigid, Tenderness - Extremities Exam Additional comments: lt calf nontender today; hyperpigmentation of dorsal aspect of left foot with some erythema; decreased tenderness to the dorsal aspect of left foot; rt calf minimally tender; full ROM b/l - Skin Skin Exam: Dry Discharge Plan - Discharge Medications Prescriptions: DULoxetine [Cymbalta] 30 mg PO HS 30 Days #30 ecc Gabapentin [Neurontin] 800 mg PO TID 30 Days #90 cap Ticagrelor [Brilinta] 90 mg PO BID 30 Days #60 tab - Follow Up Plan Condition: FAIR Disposition: HOME/ ROUTINE Instructions: High Blood Pressure (DC), Peripheral Vascular (Arterial) Disease (DC) Referrals: Jose Alberto Bolaños MD [Staff Provider] - Solange Gonzalez MD [Family Provider] - Ross Hawkins MD [Staff Provider] - <Kaity Peacock - Last Filed: 01/20/19 15:03> Provider - Provider Date of Admission: 01/11/19 17:54 Attending physician: Fuentes Simpson MD Consults: 01/11/19 23:36 Case Management Referral Routine Comment: Physician Instructions: Reason For Exam: Reason for Referral: Discharge Planning 01/12/19 07:42 Cardiology Consult Routine Comment: Consulting Provider: Jose Alberto Bolaños Consulting Physician: Jose Alberto Bolaños Reason for Consult: chronic worsening PAD 01/18/19 12:37 Anesthesiology Consult Routine Comment: Consulting Provider: Glen Cantu Consulting Physician: Glen Cantu Reason for Consult: pain management 01/18/19 17:30 Physician Consult Routine Comment: Consulting Provider: Roger Lopez Consulting Physician: Roger Lopez Reason for Consult: Pain management 01/19/19 09:35 Physician Consult Routine Comment: Consulting Provider: Agustin Jimenez Consulting Physician: Agustin Jimenez Reason for Consult: hyperkeratotic are on lateral asp of rt foot below 5th digit Hospital Course - Lab Results Lab Results: Most Recent Lab Values WBC 10.3 K/uL (4.8-10.8) 01/20/19 04:40 RBC 3.32 Mil/uL (3.80-5.20) L 01/20/19 04:40 Hgb 9.7 g/dL (12.0-16.0) L 01/20/19 04:40 Hct 28.8 % (34.0-47.0) L 01/20/19 04:40 MCV 86.8 fl (81.0-99.0) 01/20/19 04:40 MCH 29.2 pg (27.0-31.0) 01/20/19 04:40 MCHC 33.7 g/dL (33.0-37.0) 01/20/19 04:40 RDW 13.8 % (11.5-14.5) 01/20/19 04:40 Plt Count 412 K/uL (130-400) H 01/20/19 04:40 MPV 7.4 fl (7.2-11.7) 01/20/19 04:40 Neut % (Auto) 62.6 % (50.0-75.0) 01/20/19 04:40 Lymph % (Auto) 23.9 % (20.0-40.0) 01/20/19 04:40 Placer % (Auto) 7.7 % (0.0-10.0) 01/20/19 04:40 Eos % (Auto) 5.3 % (0.0-4.0) H 01/20/19 04:40 Baso % (Auto) 0.5 % (0.0-2.0) 01/20/19 04:40 Neut # (Auto) 6.4 K/uL (1.8-7.0) 01/20/19 04:40 Lymph # (Auto) 2.5 K/uL (1.0-4.3) 01/20/19 04:40 Placer # (Auto) 0.8 K/uL (0.0-0.8) 01/20/19 04:40 Eos # (Auto) 0.5 K/uL (0.0-0.7) 01/20/19 04:40 Baso # (Auto) 0.1 K/uL (0.0-0.2) 01/20/19 04:40 PT 11.2 Seconds (9.8-13.1) 01/17/19 05:20 INR 1.0 01/17/19 05:20 APTT 40.1 Seconds (25.6-37.1) H 01/19/19 05:00 Sodium 135 mmol/l (132-148) 01/19/19 05:00 Potassium 4.7 MMOL/L (3.6-5.0) 01/19/19 05:00 Chloride 100 mmol/L (98-107) 01/19/19 05:00 Carbon Dioxide 25 mmol/L (22-30) 01/19/19 05:00 Anion Gap 15 (10-20) 01/19/19 05:00 BUN 13 mg/dl (7-17) 01/19/19 05:00 Creatinine 0.8 mg/dl (0.7-1.2) 01/19/19 05:00 Est GFR ( Amer) > 60 01/19/19 05:00 Est GFR (Non-Af Amer) > 60 01/19/19 05:00 POC Glucose (mg/dL) 371 mg/dL (65-110) H 01/20/19 11:11 Random Glucose 206 mg/dL (65-105) H 01/19/19 05:00 Hemoglobin A1c 8.7 % (4.2-6.5) H 01/18/19 05:21 Calcium 9.7 mg/dL (8.4-10.2) 01/19/19 05:00 Magnesium 1.6 MG/DL (1.6-2.3) 01/11/19 14:20 Total Bilirubin 0.3 mg/dl (0.2-1.3) 01/11/19 14:20 AST 21 U/L (14-36) 01/11/19 14:20 ALT 23 U/L (9-52) 01/11/19 14:20 Alkaline Phosphatase 103 U/L (38-126) 01/11/19 14:20 Total Protein 8.1 G/DL (6.3-8.2) 01/11/19 14:20 Albumin 4.4 g/dL (3.5-5.0) 01/11/19 14:20 Globulin 3.7 gm/dL (2.2-3.9) 01/11/19 14:20 Albumin/Globulin Ratio 1.2 (1.0-2.1) 01/11/19 14:20 Urine Color Yellow (YELLOW) 01/17/19 22:45 Urine Clarity Clear (Clear) 01/17/19 22:45 Urine pH 6.0 (5.0-8.0) 01/17/19 22:45 Ur Specific [place] > 1.060 (1.003-1.030) H 01/17/19 22:45 Urine Protein 100 mg/dL (NEGATIVE) 01/17/19 22:45 Urine Glucose (UA) 50 mg/dL (NEGATIVE) 01/17/19 22:45 Urine Ketones Negative mg/dL (NEGATIVE) 01/17/19 22:45 Urine Blood Negative (NEGATIVE) 01/17/19 22:45 Urine Nitrate Positive (NEGATIVE) H 01/17/19 22:45 Urine Bilirubin Negative (NEGATIVE) 01/17/19 22:45 Urine Urobilinogen 0.2-1.0 mg/dL (0.2-1.0) 01/17/19 22:45 Ur Leukocyte Esterase Neg Concepcion/uL (Negative) 01/17/19 22:45 Urine RBC (Auto) < 1 /hpf (0-3) 01/17/19 22:45 Urine Microscopic WBC 7 /hpf (0-5) H 01/17/19 22:45 Ur Squamous Epith Cells 1 /hpf (0-5) 01/17/19 22:45 Urine Bacteria Rare (<OCC) 01/17/19 22:45 Attending/Attestation - Attestation I have personally seen and examined this patient.: Yes I have fully participated in the care of the patient.: Yes I have reviewed all pertinent clinical information, including history, physical exam and plan: Yes Notes (Text): 01/20/19 15:03 Agree with findings and plan as above.
--- NOTE | 2019-01-20 14:26 | CP.PCM.PN ---
Subjective - Date & Time of Evaluation Date of Evaluation: 01/20/19 Time of Evaluation: 14:25 - Subjective Subjective: Vladislav Montes, PGY-1, Cardiology Progress Note for Dr. Bolaños Patient seen and evaluated at bedside. Patient had no acute overnight events. Patient reports left foot pain and right lower extremity pain at site of catheter insertion improved today Objective - Vital Signs/Intake and Output Vital Signs (last 24 hours): Temp Pulse Resp BP Pulse Ox 97.7 F 88 20 99/59 L 99 01/20/19 11:52 01/20/19 11:52 01/20/19 11:52 01/20/19 11:52 01/20/19 11:52 - Medications Medications: Current Medications Albuterol (Ventolin Hfa 90 Mcg/Actuation (8 G)) 2 puff IH Q6 PRN PRN Reason: Shortness of Breath Albuterol Sulfate (Albuterol 0.083% Inhal Jammie (2.5 Mg/3 Ml) Ud) 2.5 mg IH RQ6 PRN PRN Reason: Shortness of Breath Apixaban (Eliquis) 5 mg PO BID [facility]; Protocol Last Admin: 01/20/19 10:33 Dose: 5 mg Atorvastatin Calcium (Lipitor) 20 mg PO QPM [facility] Last Admin: 01/19/19 17:06 Dose: 20 mg Darunavir (Prezista) 800 mg PO DAILY [facility]; Protocol Last Admin: 01/20/19 10:41 Dose: 800 mg Dextrose (Dextrose 50% Inj) 0 ml IV STAT PRN; Protocol PRN Reason: Hypoglycemia Protocol Dextrose (Glutose 15) 0 gm PO ONCE PRN; Protocol PRN Reason: Hypoglycemia Protocol Docusate Sodium (Colace) 100 mg PO BID [facility] Last Admin: 01/20/19 10:34 Dose: 100 mg Duloxetine HCl (Cymbalta) 30 mg PO HS [facility] Last Admin: 01/19/19 21:05 Dose: 30 mg Gabapentin (Neurontin) 800 mg PO TID [facility] Last Admin: 01/20/19 10:38 Dose: 800 mg Glipizide (Glucotrol) 10 mg PO BID [facility] Last Admin: 01/20/19 10:35 Dose: 10 mg Glucagon (Glucagen Diagnostic Kit) 0 mg IM STAT PRN; Protocol PRN Reason: Hypoglycemia Protocol Home Med (Patient's Own Medication) 1 unit PO DAILY [facility]; Protocol Last Admin: 01/20/19 10:40 Dose: 1 unit Hydromorphone HCl (Dilaudid) 1 mg IVP Q4 PRN PRN Reason: Pain, severe (8-10) Last Admin: 01/20/19 10:50 Dose: 1 mg Insulin Detemir (Levemir) 17 units SC HS [facility] Last Admin: 01/19/19 22:24 Dose: 17 u Insulin Human Lispro (Humalog) 0 units SC ACCU-CHECK [facility]; Protocol Last Admin: 01/20/19 11:55 Dose: 5 units Lactulose (Enulose) 20 gm PO DAILY PRN PRN Reason: Constipation Multivitamins/Minerals (Therapeutic-M Tab) 1 tab PO DAILY [facility] Last Admin: 01/20/19 10:41 Dose: 1 tab [id number] Ethyl Esters (Lovaza) 2 gm PO BID [facility] Last Admin: 01/20/19 10:36 Dose: 2 gm Oxycodone HCl (Oxycodone Immediate Release Tab) 10 mg PO Q6 PRN PRN Reason: Pain, moderate (4-7) Last Admin: 01/19/19 21:03 Dose: 10 mg Pantoprazole Sodium (Protonix Ec Tab) 40 mg PO DAILY [facility] Last Admin: 01/20/19 10:42 Dose: 40 mg Ritonavir (Norvir) 100 mg PO DAILY [facility]; Protocol Last Admin: 01/20/19 11:55 Dose: 100 mg Sertraline HCl (Zoloft) 50 mg PO DAILY [facility] Last Admin: 01/20/19 10:41 Dose: 50 mg Sitagliptin Phosphate (Januvia) 100 mg PO DAILY [facility] Last Admin: 01/20/19 10:36 Dose: 100 mg Tenofovir Disoproxil Fumarate (Viread) 300 mg PO DAILY [facility]; Protocol Last Admin: 01/20/19 10:41 Dose: 300 mg Ticagrelor (Brilinta) 90 mg PO BID [facility] Last Admin: 01/20/19 10:34 Dose: 90 mg Trazodone HCl (Desyrel) 150 mg PO HS [facility] Last Admin: 01/19/19 21:07 Dose: 150 mg - Labs Labs: 01/20/19 04:40 01/19/19 05:00 PT 11.2 Seconds (9.8-13.1) 01/17/19 05:20 INR 1.0 01/17/19 05:20 APTT 40.1 Seconds (25.6-37.1) H 01/19/19 05:00 - Constitutional Appears: Well, Non-toxic, In Acute Distress - Head Exam Head Exam: ATRAUMATIC, NORMAL INSPECTION, NORMOCEPHALIC - Eye Exam Eye Exam: EOMI, PERRL - ENT Exam ENT Exam: Mucous Membranes Moist - Respiratory Exam Respiratory Exam: Clear to Auscultation Bilateral, NORMAL BREATHING PATTERN - Cardiovascular Exam Cardiovascular Exam: REGULAR RHYTHM, RRR, +S1, +S2 - GI/Abdominal Exam GI & Abdominal Exam: Normal Bowel Sounds, Soft. absent: Tenderness - Extremities Exam Extremities exam: Positive for: full ROM, normal inspection, tenderness (bilateral lower extremities). Negative for: pedal edema, hematoma - Neurological Exam Neurological exam: Alert, CN II-XII Intact, Oriented x3 - Skin Skin Exam: Dry, Intact Assessment and Plan (1) PVD (peripheral vascular disease) Assessment & Plan: CTA of bilateral lower extremities 01/06/19: mild plaque in the abdominal aorta without significant stenosis. Right lower extremity shows SFA with severe stenosis at the origin and multiple areas of moderate to severe stenosis throughout the mid and distal segements, sever stenosis of the popliteal artery, stenosis of the peroneal artery at the mid and distal segments. Left lower extremity shows SFA has been previously stented and has mild to severe disease in stent stenosis. Distal SFA is moderately stenotic. There is moderate stenosis of popliteal artery. Anterior tibial artery is occluded after the proximal segment. Peroneal artery is occluded in the proximal segment with brief mid se gment reconstitution then occludes again. Peripheral catheterization: shows diffuse neointimal hyperplasia, vasospasms, calcifications, reocclusion of stent. [place] atherectomy performed with reperf usion of left lower extremity Continue lipitor, omega 3 acid, eliquis, brilinta Patient can be cleared from cardiac standpoint. Patient should follow up outpatient with Dr. Bolaños within 2 weeks. Status: Acute (2) Deep vein thrombosis (DVT) of popliteal vein of right lower extremity Assessment & Plan: Lower extremity ultrasound 01/04/19: nonocclusive eccentric thrombus in the right popliteal vein. Possible chronic venous thrombus. Cannot rule out acute venous thrombosis though appearance is atypical. Continue eliquis Status: Acute (3) Diabetes mellitus Assessment & Plan: HgbA1c: 8.7 Continue glipizide, januvia, sliding scale insulin Status: Acute (4) COPD (chronic obstructive pulmonary disease) Assessment & Plan: Continue with nebulizers Status: Chronic
== END 2019-01-20 15:07 | disposition home health service (06) | DRG 550 ==
LOC: H.ER 13:07 → H.ERHOLD 17:54 → H.TEL 21:35
PROC: 04CL3ZZ Extirpation of Matter from Left Femoral Artery, Percutaneous Approach (ICD-10-PCS; principal; 2019-01-17)
PROC: 047L3D1 Dilation of Left Femoral Artery with Intraluminal Device, using Drug-Coated Balloon, Percutaneous Approach (ICD-10-PCS; 2019-01-17)
PROC: 047 Lower Arteries, Dilation (ICD-10-PCS; 2019-01-17)
PROC: B40DYZZ Plain Radiography of Aorta and Bilateral Lower Extremity Arteries using Other Contrast (ICD-10-PCS; 2019-01-17)
DX: I70.201 Unspecified atherosclerosis of native arteries of extremities, right leg (principal); I82.431 Acute embolism and thrombosis of right popliteal vein; E11.42 Type 2 diabetes mellitus with diabetic polyneuropathy; E11.51 Type 2 diabetes mellitus with diabetic peripheral angiopathy without gangrene; J43.9 Emphysema, unspecified; Z21 Asymptomatic human immunodeficiency virus [HIV] infection status; E11.65 Type 2 diabetes mellitus with hyperglycemia; I86.3 Vulval varices; I10 Essential (primary) hypertension; J45.20 Mild intermittent asthma, uncomplicated; L57.0 Actinic keratosis; E78.5 Hyperlipidemia, unspecified; E78.00 Pure hypercholesterolemia, unspecified; F41.9 Anxiety disorder, unspecified; Z85.71 Personal history of Hodgkin lymphoma; Z86.718 Personal history of other venous thrombosis and embolism; Z87.01 Personal history of pneumonia (recurrent); Z79.01 Long term (current) use of anticoagulants; Z79.84 Long term (current) use of oral hypoglycemic drugs; Z87.442 Personal history of urinary calculi; Z87.891 Personal history of nicotine dependence